=== PATIENT | male | born 1955 | race Caucasian/White ===

== ENCOUNTER 2016-10-07 15:56 | Inpatient (IN) | payer OTHER ==
[~2016-10-07] VITALS: Ht 165.1 cm; Wt 94.3 kg
[2016-10-07] VITALS (9 sets, daily range): BP systolic 86–104; BP diastolic 57–67; PULSE 71–85; TEMP 36.4; O2SAT 93–96; BMI 25.6
[2016-10-07] MEDS ORDERED: LIDOCAINE HCL 2% JELLY 30 ML TUBE EXT ONE (16:23)
[2016-10-07] MEDS ORDERED: SODIUM CHLORIDE 0.9% 1000ML 1,000 ML IV STA ×3 (16:25→22:16)
[2016-10-07] MEDS ORDERED: SODIUM CHLORIDE 0.9% 500ML 500 ML IV STA (16:25)
--- NOTE | 2016-10-07 16:36 | EMERGENCY ROOM VISIT NOTE ---
History Report prepared by Asaf: Dara Perales Under the Supervision of: Dr. Megan Cobos M.D. First contact with patient: 16:11 Chief Complaint: ILLNESS Stated Complaint: NOT EATING - WEIGHT LOSS - SENT BY DR RIVERA History of Present Illness The patient is a 60 year old male who presents to the Emergency Room to be evaluated for worsening altered mental status over the past several days. Per patient's , the patient has gastric cancer which is likely terminal. He has had radiation and is currently going through chemotherapy. Recently, the patient has not been himself and has not been eating.He has been drinking some fluids, but not much. He also has been unable to urinate throughout the day today. He has some redness and swelling to his groin. His states that he is confused compared to baseline. The patient did have a bowel movement today. Currently, he complains of feeling tired and generally sore. Today, his called Dr. Rivera's office, his oncologist, and was referred to the emergency room. Denies chest pain, shortness of breath, or other complaints. Source of History: patient, spouse/significant other Onset: a few days [employer] Position: other (Global) Quality: other (confusion) Timing: worsening Associated Symptoms: + fatigue, + urinary symptoms (retention), No SOB, No chest pain Note: Other symptoms: not eating, generalized soreness Review of Systems See HPI for pertinent positives & negatives. A total of 10 systems reviewed and were otherwise negative. 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 Social History Smoking Status: Never Smoker Marital Status: Housing Status: lives with family Occupation Status: retired Current/Historical Medications Scheduled Capecitabine (Xeloda), 500 MG PO UD Cyanocobalamin (Vitamin B-12), 1,000 MCG PO DAILY Diphenhy/Alum/Mag/Sucralfa (Magic Swizzle - Diphenhy/Alum/Mag/Sucralfa), 15 ML PO QID Divalproex Sodium (Depakote), 500 MG PO TID Fentanyl (Fentanyl), 50 MCG TD CQ72HR Furosemide (Lasix), 20 MG PO DAILY Levothyroxine Sodium (Levothyroxine Sodium), 150 MCG PO DAILY Simvastatin (Zocor), 20 MG PO QPM Scheduled PRN Hydrocodone/Acetaminophen 5MG/325MG ([place] 5MG/325MG), 1 TABLET PO Q6 PRN for Pain Lidocaine Hcl (Mouth-Throat) (Lidocaine Viscous), 10 ML MT Q3 PRN for Pain Ondansetron Hcl (Zofran), 8 MG PO Q8 PRN for Nausea Promethazine HCl (Phenergan), 20 ML PO Q4 PRN for Nausea Allergies Coded Allergies: Codeine (Verified Allergy, Unknown, rash, 10/07/16) Morphine (Verified Allergy, Unknown, rash, 10/07/16) Physical Exam Vital Signs Date Time Temp Pulse Resp B/P Pulse Ox O2 Delivery O2 Flow Rate FiO2 10/07/16 19:30 156 20 123/93 94 Room Air 10/07/16 18:26 36.7 10/07/16 18:00 145 17 96/64 93 Room Air 10/07/16 17:46 141 10/07/16 16:07 117 18 67/48 92 Room Air Physical Exam Vital signs reviewed. General: Chronically ill-appearing 60 year old male, in some discomfort, minimally responsive to verbal stimuli. HEENT: No scleral icterus, PERRLA, neck supple. Atraumatic. Cardiovascular: Tachycardic rate and irregular rhythm, no extra sounds. Pulmonary: Clear to auscultation bilaterally, normal work of breathing. Abdomen: Soft, nontender, nondistended, positive bowel sounds. : Circumcised erythematous and excoriated glans penis, incontinent of urine. Musculoskeletal: Atraumatic, no peripheral edema. Neurologic: Patient somnolent, minimally responsive to verbal stimuli. Skin: Warm, dry, no rash Medical Decision & Procedures Laboratory Results Test 10/07/16 16:40 10/07/16 16:41 10/07/16 18:00 Urine Color DK YELLOW Urine Appearance TURBID (CLEAR) Urine pH 5.0 (4.5-7.5) Urine Specific [place] 1.018 (1.000-1.030) Urine Protein TRACE (NEG) Urine Glucose (UA) NEG (NEG) Urine Ketones NEG (NEG) Urine Occult Blood 3+ (NEG) Urine Nitrite POS (NEG) Urine Bilirubin NEG (NEG) Urine Urobilinogen NEG (NEG) Urine Leukocyte Esterase TRACE (NEG) Urine WBC (Auto) 1-5 /hpf (0-5) Urine RBC (Auto) >30 /hpf (0-4) Urine Hyaline Casts (Auto) 10-30 /lpf (0-5) Urine Epithelial Cells (Auto) 5-10 /lpf (0-5) Urine Bacteria (Auto) NEG (NEG) Urine Pathogenic Casts 1-5 GRANULAR CASTS /lpf (0) Direct Bilirubin 0.5 mg/dl (0-0.2) Ammonia 40.0 umol/L (11-32) Lipase 118 U/L (73-393) Nucleated RBC Absolute Count (auto) 0.03 K/uL (0-0) Basophils % (Manual) 0.9 % (0-2) Nucleated Red Blood Cells % 1.2 % Basophils # (Manual) 0.02 K/uL (0-0.2) Hypochromasia PRESENT Anisocytosis PRESENT Date/Time Source Procedure Growth Status 10/07/16 16:40 Urine,Catheterized Urine Culture - Final NO GROWTH - LESS THAN 1,000 COLONIES/ML Complete Laboratory results per my review. Medications Administered Medications (Trade) Dose Ordered Sig/Ember Route Start Time Stop Time Status Last Admin Dose Admin Lidocaine HCl 30 ml 30 ml STK-MED ONCE EXT 10/07/16 16:23 10/07/16 16:24 DC 10/07/16 16:43 30 ML Sodium Chloride 500 ml @ 999 mls/hr Q31M STAT IV 10/07/16 16:25 10/07/16 16:55 DC 10/07/16 16:25 999 MLS/HR Sodium Chloride 1,000 ml @ 150 mls/hr Q6H40M STAT IV 10/07/16 16:25 10/07/16 21:26 DC 10/07/16 16:43 150 MLS/HR Sodium Chloride (Nss 1000ml) 1,000 ml @ 999 mls/hr Q1H1M STAT IV 10/07/16 17:32 10/07/16 18:32 DC 10/07/16 17:32 999 MLS/HR Metoprolol Tartrate (Lopressor Iv) 5 mg NOW STAT IV 10/07/16 19:42 10/07/16 20:04 DC 10/07/16 20:19 2.5 MG Ondansetron HCl (Zofran Inj) 4 mg Q6H PRN IV 10/07/16 19:45 11/06/16 19:44 10/09/16 00:52 4 MG ECG Indication: altered mental status Rate (beats per minute): 145 Rhythm: atrial fibrillation (with RVR) Findings: other (ST-T wave abnormality, likely inferior ischemia) ED Course 1618: The patient was evaluated in room B9. A complete history and physical examination was performed. 1625: Ordered NSS 1000 ml @ 150 mls/hr IV, NSS 500 ml @ 999 mls/hr IV. 1730: I reassessed the patient and updated his family on results so far. Ordered NSS 1000 ml @ 999 mls/hr IV. 1850: I discussed the case with Dr. Pamela Oconnell Hospitalist. The patient will be evaluated for further management. 1915: Upon reevaluation, the patient is resting comfortably. I discussed laboratory and radiographic results with the patient and his . They verbalized agreement of the treatment plan. Medical Decision Differential diagnosis: Etiologies such as metabolic, infection, hypo/hyperglycemia, electrolyte abnormalities, cardiac sources, intracerebral event, toxicologic, neurologic, as well as others were entertained. This patient was evaluated and appeared to be in no significant distress. IV access was obtained and laboratory work was drawn. The patient was placed on the potline monitor and found to be initially in a normal sinus rhythm. Laboratory work reveals a profound dehydration with elevated creatinine at 3.6 with a BUN of 102. This is not the patient's baseline. He was hydrated with normal saline solution and seemed to improve. A Alfonso catheter was placed. Patient's converted to an atrial fibrillation with RVR. His blood pressure remained hypotensive. He was hydrated and broke for a short period of time on his own. I did have a discussion with the patient's regarding end-of-life management and CODE STATUS. She states she would like him to be as comfortable as possible and seems realistic although was not willing to state he is a DO NOT RESUSCITATE at this time. The patient is periodically awake but falls asleep quickly. The hospitalist service was contacted for admission and further management. Consults Time Called: [phone] Consulting Physician: Dr. Pamela Oconnell Hospitalist Returned Call: [phone] I discussed the case with him. The patient will be evaluated for further management. Impression Primary Impression: Severe dehydration Additional Impressions: New onset a-fib Atrial fibrillation with RVR Scribe Attestation The scribe's documentation has been prepared under my direction and personally reviewed by me in its entirety. I confirm that the note above accurately reflects all work, treatment, procedures, and medical decision making performed by me. Departure Information Dispostion Being Evaluated By Hospitalist Referrals Fran Ware, FionaOOri (PCP) Patient Instructions My [facility] Problem Qualifiers
[2016-10-07 17:22] LABS: BUN/CREATININE RATIO 28.3 (10-20); CALCIUM 8.7 mg/dl (8.5-10.1); CREATININE 3.6 mg/dl (0.60-1.40); MAGNESIUM 2.8 mg/dl (1.8-2.4)
[2016-10-07] MEDS ORDERED: DRGTP50 TD (17:23)
[2016-10-07] MEDS ORDERED: FURO-85 PO (17:23)
[2016-10-07] MEDS ORDERED: LEVO150T9 PO (17:23)
[2016-10-07] MEDS ORDERED: CYAN10005 PO (17:23)
[2016-10-07] MEDS ORDERED: PROM2SUP PO (17:23)
[2016-10-07] MEDS ORDERED: HYDR-5688 PO (17:23)
[2016-10-07] MEDS ORDERED: DIVA500T59 PO (17:23)
[2016-10-07] MEDS ORDERED: XLD/500 PO (17:23)
[2016-10-07] MEDS ORDERED: MAGIC1 PO (17:23)
[2016-10-07] MEDS ORDERED: SIMV20TA2 PO (17:23)
[2016-10-07] MEDS ORDERED: LIDO2SOL19 MT (17:23)
[2016-10-07] MEDS ORDERED: ONDA8TAB6 PO (17:23)
[2016-10-07 17:33] LABS: URINE APPEARANCE TURBID (CLEAR); URINE COLOR DK YELLOW; URINE NITRITE POS (NEG); URINE SPECIFIC GRAVITY 1.018 (1.000-1.030); UROBILINOGEN NEG (NEG); ZZURINE CULT IF INDIC CATH NO
[2016-10-07 17:46] LABS: MANUAL MICROSCOPIC REQUIRED? NO; REVIEW REQ? YES
[2016-10-07 17:48] LABS: URINE BILIRUBIN NEG (NEG)
[2016-10-07 18:03] LABS: URINE PATH CASTS 1-5 GRANULAR CASTS /lpf (0)
[2016-10-07 19:29] LABS: HEMATOCRIT 35.2 % (42-52); MEAN CELL VOLUME 78.4 fL (80-100); MEAN CORPUSCULAR HEMOGLOBIN 25.8 pg (25-34); PLATELET COUNT 39 K/uL (130-400); RED BLOOD COUNT 4.49 M/uL (4.7-6.1)
[2016-10-07 19:30] LABS: ANISOCYTOSIS PRESENT; BASO ABS # 0.02 K/uL (0-0.2); BASOPHIL % 0.9 % (0-2); COMPLETE YES; ECHINOCYTES 2+; HYPOCHROMIA PRESENT; LYMPH ABS # 0.48 K/uL (1.2-3.4); PLT ESTIMATE SIGNIFIC DECREASED; TOXIC GRANULATION 3+
[2016-10-07] MEDS ORDERED: METOPROLOL TARTRATE 1 MG/ML VIAL IV STA (19:42)
[2016-10-07] MEDS ORDERED: LEVALBUTEROL 0.63MG/3 ML NEB INH PRN (19:45)
[2016-10-07] MEDS ORDERED: ACETAMINOPHEN 325 MG TAB PO PRN (19:45)
[2016-10-07] MEDS ORDERED: DILTIAZEM BOLUS / DRIP IV STA (20:04)
[2016-10-07] MEDS ORDERED: FENTANYL 50 MCG/HR TDSY TD SCH (20:15)
--- NOTE | 2016-10-07 20:42 | DIAGNOSTIC IMAGING REPORT ---
CHEST ONE VIEW PORTABLE CLINICAL HISTORY: Atrial fibrillation ANOREXIA COMPARISON STUDY: No previous studies for comparison. FINDINGS: The heart is the upper limits of normal in size. Mild prominence the right paratracheal soft tissues likely relates to the AP technique. There is no lobar consolidation. There are no pleural fusions. There is minor basilar atelectasis[ IMPRESSION: Minor basilar atelectasis. No evidence of failure. No evidence of focal pulmonary consolidation Electronically signed by: Moose Montejo M.D. 10/07/2016 8:40 PM Dictated Date/Time: 10/07/2016 8:39 PM
--- NOTE | 2016-10-07 21:22 | DIAGNOSTIC IMAGING REPORT ---
EXAMINATION: RENAL ULTRASOUND CLINICAL HISTORY: Acute renal insufficiency COMPARISON STUDY: None FINDINGS: The right kidney measures 11.5 cm. The left kidney measures 12.2 cm. There is mild fullness of the right renal pelvis. There is no significant left-sided hydronephrosis. There is a probable 3.8 cm hypoechoic left renal mass.. The bladder was nearly empty at time of scanning. There is indwelling Alfonso catheter. There are innumerable hepatic masses, suspicious for metastatic disease. IMPRESSION : 1. Probable 3.8 cm hypoechoic left renal mass 2. Multiple hepatic masses suspicious for metastatic disease 3. Mild fullness of the right renal pelvis, but no evidence of significant hydronephrosis Electronically signed by: Moose Montejo M.D. 10/07/2016 9:20 PM Dictated Date/Time: 10/07/2016 9:17 PM
[2016-10-07] MEDS ORDERED: SODIUM CHLORIDE 0.9% 1000ML 1,000 ML IV SCH (21:45)
[2016-10-07] MEDS ORDERED: DILTIAZEM HCL INJ 125 MG in DEXTROSE 5% 100ML IV PRN (21:45)
[2016-10-07] MEDS ORDERED: SIMVASTATIN 20 MG TAB PO SCH (22:00)
[2016-10-07] MEDS ORDERED: PIPERACILL/TAZOBAC IV 4.5 GM in DEXTROSE 5% 100ML 100 ML IV ONE (22:17)
[2016-10-07] MEDS ORDERED: VANCOMYCIN INJ 1,700 MG in SODIUM CHLORIDE 0.9% 500ML 500 ML IV STA (22:17)
[2016-10-07] MEDS: DIVALPROEX SODIUM 500 MG DELAY RELEASE TAB PO SCH (22:18)
[2016-10-07] MEDS ORDERED: VANCOMYCIN CONSULT ACTIVE PRN (22:30)
[2016-10-07] MEDS ORDERED: PIPERACILL/TAZOBAC CONSULT ACTIVE PRN (22:30)
--- NOTE | 2016-10-07 23:02 | Critical Care Consultation ---
Critical Care Consultation Date of Consultation: Oct 07, 2016. Attending Physician: Philippe Sahni MD Reason for Consultation: Hemodynamic instability atrial fibrillation with rapid ventricular response History of Present Illness Patient is a 60-year-old male with a history of metastatic carcinoma who is actively undergoing chemotherapy and radiation. The last 24 hours the reports that the patient has had palpitations and decreased oral intake. Denies fevers chills chest pain shortness of breath. notes that the patient normally minimizes his complaints. Upon her insistent today for his generalized weakness he was brought to the [facility] emergency department. He was discovered to be profoundly dehydrated with an acute kidney injury and in atrial fibrillation with rapid ventricular response. After aggressive fluid resuscitation which marginally improved his hemodynamics the patient went for a renal ultrasound for evaluation of the acute kidney injury. As noted that when the patient was transferring between 2 beds he spontaneously converted out of atrial fibrillation and into a normal sinus rhythm. Since that time his blood pressure has improved with improved cardiovascular function. Social History Smoking Status: Never Smoker Marital Status: Housing Status: lives with family Allergies Coded Allergies: Codeine (Verified Allergy, Unknown, rash, 10/07/16) Morphine (Verified Allergy, Unknown, rash, 10/07/16) Home Medications Scheduled Capecitabine (Xeloda), 500 MG PO UD Cyanocobalamin (Vitamin B-12), 1,000 MCG PO DAILY Diphenhy/Alum/Mag/Sucralfa (Magic Swizzle - Diphenhy/Alum/Mag/Sucralfa), 15 ML PO QID Divalproex Sodium (Depakote), 500 MG PO TID Fentanyl (Fentanyl), 50 MCG TD CQ72HR Furosemide (Lasix), 20 MG PO DAILY Levothyroxine Sodium (Levothyroxine Sodium), 150 MCG PO DAILY Simvastatin (Zocor), 20 MG PO QPM Scheduled PRN Hydrocodone/Acetaminophen 5MG/325MG ([place] 5MG/325MG), 1 TABLET PO Q6 PRN for Pain Lidocaine Hcl (Mouth-Throat) (Lidocaine Viscous), 10 ML MT Q3 PRN for Pain Ondansetron Hcl (Zofran), 8 MG PO Q8 PRN for Nausea Promethazine HCl (Phenergan), 20 ML PO Q4 PRN for Nausea Current Inpatient Medications Current Inpatient Medications Medications (Trade) Dose Ordered Sig/Ember Route Start Time Stop Time Status Last Admin Dose Admin Sodium Chloride (Nss 1000ml) 1,000 ml @ 125 mls/hr Q8H IV 10/07/16 21:45 11/06/16 21:44 10/07/16 21:51 125 MLS/HR Acetaminophen (Tylenol Tab) 650 mg Q4H PRN PO 10/07/16 19:45 11/06/16 19:44 Levalbuterol (Xopenex 0.63 Mg/ 3 Ml Neb) 0.63 mg QID PRN INH 10/07/16 19:45 11/06/16 19:44 Ondansetron HCl (Zofran Inj) 4 mg Q6H PRN IV 10/07/16 19:45 11/06/16 19:44 Cyanocobalamin (Vitamin B-12 Tab) 1,000 mcg DAILY PO 10/08/16 09:00 11/07/16 08:59 Divalproex Sodium (Depakote Delay Rel Tab) 500 mg TID PO 10/07/16 22:00 11/06/16 21:59 Acetaminophen/ Hydrocodone Bitart ([place] 5/325 Tab) 1 tab Q6 PRN PO 10/07/16 20:15 10/21/16 20:14 Levothyroxine Sodium (Synthroid Tab) 150 mcg DAILYBB PO 10/08/16 06:00 11/07/16 05:59 Simvastatin (Zocor Tab) 20 mg QPM PO 10/07/16 22:00 11/06/16 21:59 Capecitabine 1500 mg 1,500 mg BID@0000,1200 PO 10/08/16 00:00 10/11/16 00:00 Sodium Chloride 1,000 ml @ 999 mls/hr Q1H1M STAT IV 10/07/16 22:16 10/07/16 23:16 Vancomycin HCl 1700 mg/Sodium Chloride 534 ml @ 200 mls/hr NOW STAT IV 10/07/16 22:17 10/08/16 00:57 Piperacillin Sod/ Tazobactam Sod/ Dextrose (Zosyn Iv/D5 100ml) 120 ml @ 200 mls/hr ONE ONCE IV 10/07/16 22:17 10/07/16 22:52 Vancomycin HCl (Consult) 1 ea UD PRN N/A 10/07/16 22:30 11/06/16 22:29 Piperacillin Sod/ Tazobactam Sod (Consult) 1 ea UD PRN N/A 10/07/16 22:30 11/06/16 22:29 Review of Systems Patient denies chest pain, shortness of breath, nausea, vomiting. There is chronic abdominal pain secondary to metastases. A 10 point review of systems is reviewed and is otherwise negative. Physical Exam Date Time Temp Pulse Resp B/P Pulse Ox O2 Delivery O2 Flow Rate FiO2 10/07/16 20:36 117 20 73/57 96 Room Air 10/07/16 20:19 146 102/59 10/07/16 19:30 156 20 123/93 94 Room Air 10/07/16 18:26 36.7 10/07/16 18:00 145 17 96/64 93 Room Air 10/07/16 17:46 141 10/07/16 16:07 117 18 67/48 92 Room Air General Appearance: mild distress Head: atraumatic Neck: limited range of motion, other (fullness) Respiratory: rhonchi (scattered) Cardiovasular: irregular rate, abnormal rhythm Abdomen: RUQ TTP, LUQ TTP, RLQ TTP, LLQ TTP, suprapubic TTP Upper Extremities: no edema Lower Extremities: no deformity Neuro: alert, oriented x 3 Laboratory Results Last 24 Hours Test 10/07/16 16:40 10/07/16 16:41 10/07/16 18:00 10/07/16 21:20 Urine Color DK YELLOW Urine Appearance TURBID Urine pH 5.0 Urine Specific [place] 1.018 Urine Protein TRACE Urine Glucose (UA) NEG Urine Ketones NEG Urine Occult Blood 3+ Urine Nitrite POS Urine Bilirubin NEG Urine Urobilinogen NEG Urine Leukocyte Esterase TRACE Urine WBC (Auto) 1-5 /hpf Urine RBC (Auto) >30 /hpf Urine Hyaline Casts (Auto) 10-30 /lpf Urine Epithelial Cells (Auto) 5-10 /lpf Urine Bacteria (Auto) NEG Urine Pathogenic Casts 1-5 GRANULAR CASTS /lpf Sodium Level 138 mmol/L Potassium Level 5.0 mmol/L Chloride Level 105 mmol/L Carbon Dioxide Level 13 mmol/L Anion Gap 20.0 mmol/L Blood Urea Nitrogen 102 mg/dl Creatinine 3.60 mg/dl Est Creatinine Clear Calc Drug Dose 18.5 ml/min Estimated GFR () 19.8 Estimated GFR (Non- 17.1 BUN/Creatinine Ratio 28.3 Random Glucose 87 mg/dl Calcium Level 8.7 mg/dl Magnesium Level 2.8 mg/dl Total Bilirubin 0.7 mg/dl Direct Bilirubin 0.5 mg/dl Aspartate Amino Transf (AST/SGOT) 86 U/L Alanine Aminotransferase (ALT/SGPT) 62 U/L Alkaline Phosphatase 194 U/L Ammonia 40.0 umol/L Total Protein 6.0 gm/dl Albumin 1.5 gm/dl Lipase 118 U/L White Blood Count 2.10 K/uL Red Blood Count 4.49 M/uL Hemoglobin 11.6 g/dL Hematocrit 35.2 % Mean Corpuscular Volume 78.4 fL Mean Corpuscular Hemoglobin 25.8 pg Mean Corpuscular Hemoglobin Concent 33.0 g/dl Platelet Count 39 K/uL RDW Standard Deviation 47.0 fL RDW Coefficient of Variation 17.0 % Nucleated RBC Absolute Count (auto) 0.03 K/uL Neutrophils % (Manual) 69.0 % Lymphocytes % (Manual) 23.0 % Monocytes % (Manual) 7.1 % Basophils % (Manual) 0.9 % Nucleated Red Blood Cells % 1.2 % Neutrophils # (Manual) 1.45 K/uL Total Absolute Neutrophils 1.45 K/uL Lymphocytes # (Manual) 0.48 K/uL Total Absolute Lymphocytes 0.48 K/uL Monocytes # (Manual) 0.15 K/uL Basophils # (Manual) 0.02 K/uL Toxic Granulation 3+ Platelet Estimate SIGNIFIC DECREASED Hypochromasia PRESENT Anisocytosis PRESENT Echinocytes 2+ Procalcitonin 156.37 ng/mL Test 10/07/16 21:28 Lactic Acid Level 4.4 mmol/L Diagnostic Results [~ rep ct add3]] EXAMINATION: RENAL ULTRASOUND CLINICAL HISTORY: Acute renal insufficiency COMPARISON STUDY: None FINDINGS: The right kidney measures 11.5 cm. The left kidney measures 12.2 cm. There is mild fullness of the right renal pelvis. There is no significant left-sided hydronephrosis. There is a probable 3.8 cm hypoechoic left renal mass.. The bladder was nearly empty at time of scanning. There is indwelling Alfonso catheter. There are innumerable hepatic masses, suspicious for metastatic disease. IMPRESSION : 1. Probable 3.8 cm hypoechoic left renal mass 2. Multiple hepatic masses suspicious for metastatic disease 3. Mild fullness of the right renal pelvis, but no evidence of significant hydronephrosis Electronically signed by: Moose Montejo M.D. 10/07/2016 9:20 PM Dictated Date/Time: 10/07/2016 9:17 PM CHEST ONE VIEW PORTABLE CLINICAL HISTORY: Atrial fibrillation ANOREXIA COMPARISON STUDY: No previous studies for comparison. FINDINGS: The heart is the upper limits of normal in size. Mild prominence the right paratracheal soft tissues likely relates to the AP technique. There is no lobar consolidation. There are no pleural fusions. There is minor basilar atelectasis[ IMPRESSION: Minor basilar atelectasis. No evidence of failure. No evidence of focal pulmonary consolidation Electronically signed by: Moose Montejo M.D. 10/07/2016 8:40 PM Assessment & Plan (1) Atrial fibrillation with RVR (2) Pancytopenia due to chemotherapy (3) Lactic acid acidosis (4) Hyperammonemia (5) SHERI (acute kidney injury) (6) Metabolic acidosis, increased anion gap (7) Uremia (8) Generalized weakness (9) New onset a-fib (10) Severe dehydration (11) Gastric cancer (12) Seizure disorder Neuro: History of seizure disorder, reports no seizures the last 10 years, no report of brain metastases at this time Continue Depakote Elevated ammonia level, likely secondary to Depakote usage and possible hepatic insufficiency given her cancer history, likely metastases, lesions seen on ultrasound Discussed with pharmacy we do not have levocarnitine available for hyperammonemia Cardiovascular: New-onset A. fib, unknown length of duration. Spontaneous conversion to normal sinus rhythm, we'll obtain EKG Echo in the morning Hypotension: Resolved with adventist of normal sinus rhythm Respiratory: History of Jac tobacco use GI: History of carcinomatosis, elevated AST Patient has diet Renal: Uremia, metabolic acidosis with elevated gap likely secondary to uremia and lactic acidosis, lactic acidosis, SHERI Aggressive fluid resuscitation, patient received 3 L normal saline, and S running at 125 convert to lactated Ringer's at 125 an hour. Repeat lactate Check Fena, however likely prerenal no evidence of obstruction on an ultrasound Endocrine check random cortisol Hematology: Pancytopenia likely secondary to chemotherapeutic effect and malignancy burden. Broad spectrum antibiotics in setting of possible sepsis Platelet count 39, will not chemically prophylaxis at this time. Patient high risk for venous thromboembolism given active malignancy, if found with venous thromboembolism would highly consider [place] filter No active evidence for recurrent PE at this time, will place SCDs Infectious disease:: Procalcitonin extremely elevated, patient meets criteria for severe sepsis, other etiologies include hyperperfusion secondary to atrial fibrillation with rapid ventricular response Check influenza On Zosyn and vancomycin Likely source at this time is urinary, nitrate positive Patient desires to be full code, surrogate medical decision maker would be patient's . Discussed the risks and benefits of blood transfusion, patient accepts Discussed risks and benefits of endotracheal intubation, patient accepts, of note patient has fractured jaw secondary to malignancy Discussed risks and benefits of central venous axis, patient accepts, of note patient has had neck malignancy and recent neck radiation Discussed risks and benefits of arterial line, patient accepts risks Discussed risks and benefits of bronchoscopy, patient accepts Discussed risks and benefits of PICC line, patient accepts I have personally spent 90 minutes of critical care time in the direct management of this patient. This is a life/limb threatening event. This includes time spent evaluating patient, direct bedside care, chart review, placing orders, interpretation of diagnostic studies, discussion with consultants, patient, and family members, as well as other required patient management activities. This time is exclusive of all separately billable procedures, and teaching time and separate from and in addition to any other critical care service time.
[2016-10-08] VITALS (30 sets, daily range): BP systolic 55–127; BP diastolic 45–88; PULSE 68–87; TEMP 36.1–36.4; O2SAT 93–99
--- NOTE | 2016-10-08 00:01 | History and Physical ---
History & Physical Date & Time of Service: Oct 07, 2016 at 23:02 Chief Complaint: Generalized Weakness Primary Care Physician: Fran Ware D.O. History of Present Illness Source: patient, family Patient is a 60 yr old male with PMH of Seizure disorder, Metastatic gastric cancer, Dyslipidemia, Hypothyroidism, Former tobacco use disorder presents with history of being very lethargic, decreased appetite, decreased urine output and has not been himself since last few days. Patient has radiation therapy and is currently undergoing chemotherapy. Patient is a very poor historian and most of the history is obtained from patient's family. Per family patient lost about 100 pounds in last 2 months. Family noticed that his developed some groin redness and swelling and especially since last 2 days his appetite has decreased dramatically and had no urine output since one day. Patient denies any history of cough, SOB, chest pain, fever, nausea, vomiting or noticed any blood in urine/stools. States patient has had intermittent chills last week. Patient was found to have new onset afib, hypotensive with SBP in 60s and SHERI. Past Medical/Surgical History Medical Problems: (1) Gastric cancer Status: Chronic (2) Pancytopenia due to chemotherapy Status: Chronic (3) Seizure disorder Status: Chronic Surgical Problems: (1) H/O knee surgery Status: Chronic Family History Mother: Heart disease, Hypothyroidism Social History Smoking Status: Former Smoker (Chews [employer]) Alcohol Use: socially Drug Use: none Marital Status: Allergies Coded Allergies: Codeine (Verified Allergy, Unknown, rash, 10/07/16) Morphine (Verified Allergy, Unknown, rash, 10/07/16) Home Medications Scheduled Capecitabine (Xeloda), 500 MG PO UD Cyanocobalamin (Vitamin B-12), 1,000 MCG PO DAILY Diphenhy/Alum/Mag/Sucralfa (Magic Swizzle - Diphenhy/Alum/Mag/Sucralfa), 15 ML PO QID Divalproex Sodium (Depakote), 500 MG PO TID Fentanyl (Fentanyl), 50 MCG TD [id number] Furosemide (Lasix), 20 MG PO DAILY Levothyroxine Sodium (Levothyroxine Sodium), 150 MCG PO DAILY Simvastatin (Zocor), 20 MG PO QPM Scheduled PRN Hydrocodone/Acetaminophen 5MG/325MG ([place] 5MG/325MG), 1 TABLET PO Q6 PRN for Pain Lidocaine Hcl (Mouth-Throat) (Lidocaine Viscous), 10 ML MT Q3 PRN for Pain Ondansetron Hcl (Zofran), 8 MG PO Q8 PRN for Nausea Promethazine HCl (Phenergan), 20 ML PO Q4 PRN for Nausea Review of Systems See HPI for pertinent positives & negatives. A total of 10 systems reviewed and were otherwise negative. Physical Exam Vital Signs Date Time Temp Pulse Resp B/P Pulse Ox O2 Delivery O2 Flow Rate FiO2 10/07/16 20:36 117 20 73/57 96 Room Air 10/07/16 20:19 146 102/59 10/07/16 19:30 156 20 123/93 94 Room Air 10/07/16 18:26 36.7 10/07/16 18:00 145 17 96/64 93 Room Air 10/07/16 17:46 141 10/07/16 16:07 117 18 67/48 92 Room Air General Appearance: + pertinent finding (Chronically ill appearing, Mild distress, Lethargic) Head: normocephalic, atraumatic Eyes: normal inspection, PERRL, EOMI, sclerae normal ENT: normal ENT inspection, hearing grossly normal Neck: supple, trachea midline Respiratory/Chest: chest non-tender, lungs clear, normal breath sounds, no accessory muscle use Cardiovascular: no edema, no murmur, + tachycardia, + irregularly irregular Abdomen/GI: normal bowel sounds, soft, + pertinent finding (mild tenderness diffusely) Extremities/Musculoskelatal: normal inspection, no calf tenderness Neurologic/Psych: alert, oriented x 3, + pertinent finding (Very Letharic, Not very verbal) Diagnostics Laboratory Results Results Past 24 Hours Test 10/07/16 16:40 10/07/16 16:41 10/07/16 18:00 10/07/16 21:20 Range/Units Urine Color DK YELLOW Urine Appearance TURBID CLEAR Urine pH 5.0 4.5-7.5 Urine Specific [place] 1.018 1.000-1.030 Urine Protein TRACE NEG Urine Glucose (UA) NEG NEG Urine Ketones NEG NEG Urine Occult Blood 3+ NEG Urine Nitrite POS NEG Urine Bilirubin NEG NEG Urine Urobilinogen NEG NEG Urine Leukocyte Esterase TRACE NEG Urine WBC (Auto) 1-5 0-5 /hpf Urine RBC (Auto) >30 0-4 /hpf Urine Hyaline Casts (Auto) 10-30 0-5 /lpf Urine Epithelial Cells (Auto) 5-10 0-5 /lpf Urine Bacteria (Auto) NEG NEG Urine Pathogenic Casts 1-5 GRANULAR CASTS 0 /lpf Sodium Level 138 136-145 mmol/L Potassium Level 5.0 3.5-5.1 mmol/L Chloride Level 105 98-107 mmol/L Carbon Dioxide Level 13 21-32 mmol/L Anion Gap 20.0 3-11 mmol/L Blood Urea Nitrogen 102 7-18 mg/dl Creatinine 3.60 0.60-1.40 mg/dl Est Creatinine Clear Calc Drug Dose 18.5 ml/min Estimated GFR () 19.8 Estimated GFR (Non- 17.1 BUN/Creatinine Ratio 28.3 10-20 Random Glucose 87 70-99 mg/dl Calcium Level 8.7 8.5-10.1 mg/dl Magnesium Level 2.8 1.8-2.4 mg/dl Total Bilirubin 0.7 0.2-1 mg/dl Direct Bilirubin 0.5 0-0.2 mg/dl Aspartate Amino Transf (AST/SGOT) 86 15-37 U/L Alanine Aminotransferase (ALT/SGPT) 62 12-78 U/L Alkaline Phosphatase 194 45-117 U/L Ammonia 40.0 11-32 umol/L Total Protein 6.0 6.4-8.2 gm/dl Albumin 1.5 3.4-5.0 gm/dl Lipase 118 73-393 U/L White Blood Count 2.10 4.8-10.8 K/uL Red Blood Count 4.49 4.7-6.1 M/uL Hemoglobin 11.6 14.0-18.0 g/dL Hematocrit 35.2 42-52 % Mean Corpuscular Volume 78.4 80-100 fL Mean Corpuscular Hemoglobin 25.8 25-34 pg Mean Corpuscular Hemoglobin Concent 33.0 32-36 g/dl Platelet Count 39 130-400 K/uL RDW Standard Deviation 47.0 36.4-46.3 fL RDW Coefficient of Variation 17.0 11.5-14.5 % Nucleated RBC Absolute Count (auto) 0.03 0-0 K/uL Neutrophils % (Manual) 69.0 % Lymphocytes % (Manual) 23.0 % Monocytes % (Manual) 7.1 % Basophils % (Manual) 0.9 0-2 % Nucleated Red Blood Cells % 1.2 % Neutrophils # (Manual) 1.45 1.4-6.5 K/uL Total Absolute Neutrophils 1.45 1.4-6.5 K/uL Lymphocytes # (Manual) 0.48 1.2-3.4 K/uL Total Absolute Lymphocytes 0.48 1.2-3.4 K/uL Monocytes # (Manual) 0.15 0.11-0.59 K/uL Basophils # (Manual) 0.02 0-0.2 K/uL Toxic Granulation 3+ Platelet Estimate SIGNIFIC DECREASED Hypochromasia PRESENT Anisocytosis PRESENT Echinocytes 2+ Procalcitonin 156.37 0-0.5 ng/mL Test 10/07/16 21:28 Range/Units Lactic Acid Level 4.4 0.4-2.0 mmol/L Microbiology Results 10/07/16 Blood Culture, Received Pending 10/07/16 Blood Culture, Received Pending 10/07/16 MRSA DNA Surveillance Screen, Received Pending 10/07/16 Urine Culture, Received Pending Diagnostic Radiology CXR: Minor basilar atelectasis. No evidence of failure. No evidence of focal pulmonary consolidation Renal USD: 1. Probable 3.8 cm hypoechoic left renal mass 2. Multiple hepatic masses suspicious for metastatic disease 3. Mild fullness of the right renal pelvis, but no evidence of significant hydronephrosis EKG EKG: Afib with RVR, Rate in 150s Impression Assessment and Plan Atrial fibrillation with RVR: New onset per family Currently in Sinus S/P IV Metoprolol Will hold of anticoagulation for now given hematuria in urine Currently rate controlled in 70s and in sinus Monitor in Telemetry Will consult cardiology Severe Dehydration/Hypotension and Lethargy: R/O sepsis, UTI Secondary to decreased PO intake and comorbidities Lactic acid:4.4 likely secondary to malignancy Start IV fluids, broad spectrum antibiotics Elkins cultures [employer] Programmer consulted SHERI: Likely prerenal secondary to decreased oral intake IV fluids Monitor renal function Get renal ultrasound Consider Nephrology consult if no improvement Avoid nephrotoxic agents Metastatic gastric cancer: S/P radiation therapy Continue chemotherapy Poor prognosis Pancytopenia: Likely secondary to chemotherapy Monitor CBC Seizure disorder: Stable Continue home meds Hypothyroidism: Stable Continue levothyroxine DVT Px: SCDs- given hematuria, Thrombocytopenia Code Status: Full code Advanced Directives Existing Advance Directive: No Existing Living Will: No Existing Power of Dry Kiln Loader: No VTE Prophylaxis VTE Risk Assessment Done? Y/N: Yes Risk Level: Moderate
[2016-10-08] MEDS: LACTATED RINGER'S 1000ML 1,000 ML IV SCH ×3 (00:30→15:45)
[2016-10-08] MEDS: CAPECITABINE 500 MG TAB PO SCH ×2 (00:31→12:18)
[2016-10-08 04:30] LABS: ISTAT ALLEN TEST Pass; ISTAT ARTERIAL BLOOD GAS HCO3 16 meq/L (19-24); ISTAT ARTERIAL BLOOD GAS PCO2 27 mmHg (35-46); ISTAT ARTERIAL BLOOD GAS PO2 55 mmHg (80-95); ISTAT CARBON DIOXIDE 17 mEq/l (24-31); ISTAT DELIVERY SYSTEM Room Air; ISTAT SITE L Radial
[2016-10-08] MEDS ORDERED: LEVOTHYROXINE 150 MCG TAB PO SCH (06:00)
[2016-10-08 06:45] LABS: HEMATOCRIT 33.1 % (42-52); MEAN CELL VOLUME 77.5 fL (80-100); MEAN CORPUSCULAR HEMOGLOBIN 25.8 pg (25-34); MEAN CORPUSCULAR HGB CONC 33.2 g/dl (32-36); PLATELET COUNT 37 K/uL (130-400); RED BLOOD COUNT 4.27 M/uL (4.7-6.1); WHITE BLOOD COUNT 1.24 K/uL (4.8-10.8)
[2016-10-08 06:46] LABS: ECHINOCYTES 1+; PLT ESTIMATE SIGNIFIC DECREASED; SPHEROCYTE 1+
[2016-10-08 06:49] LABS: COMPLETE YES; LYMPH ABS # 0.34 K/uL (1.2-3.4); LYMPHOCYTE % 27.6 %; META ABS # 0.02 K/uL (0-0); METAMYELOCYTE % 1.7 %; NEUTROPHILS % 63.8 %
[2016-10-08 07:10] LABS: ALB/GLOB RATIO 0.3 (0.9-2); ALKALINE PHOSPHATASE 155 U/L (45-117); ALT/SGPT 55 U/L (12-78); AST/SGOT 73 U/L (15-37); BLOOD UREA NITROGEN 93 mg/dl (7-18); BUN/CREATININE RATIO 42.2 (10-20); CALCIUM 7.8 mg/dl (8.5-10.1); CARBON DIOXIDE 17 mmol/L (21-32); CHLORIDE 111 mmol/L (98-107); GLUCOSE 91 mg/dl (70-99); MAGNESIUM 2.7 mg/dl (1.8-2.4); PHOSPHORUS 5.1 mg/dl (2.5-4.9); POTASSIUM 4.1 mmol/L (3.5-5.1); SODIUM 143 mmol/L (136-145)
[2016-10-08] MEDS ORDERED: PERFLUTREN LIPID MICROSPHERE (DEFINITY) IV ONE (07:51)
--- NOTE | 2016-10-08 08:46 | Pharmacy Progress Note ---
Pharmacy Antibiotic Consult Date of Service: Oct 08, 2016. Pharmacy Dosing Scope Pharmacy is consulted to initiate Vanco/zosyn IV dosing therapy, order appropriate labs and adjust drug dose/frequency. Subjective The patient is a 60 year old male admitted on Oct 07, 2016 at 20:04. Objective Height (Feet): 5 Height (Inches): 5.00 Weight (Kilograms): 72.500 Lab Results (24hrs): Item Value Date Time Creatinine 2.20 mg/dl H 10/08/16 0604 Est Creatinine Clear Calc Drug Dose 30.3 ml/min 10/08/16 0604 Creatinine 3.60 mg/dl H 10/07/16 1641 Est Creatinine Clear Calc Drug Dose 18.5 ml/min 10/07/16 1641 Laboratory Tests Test 10/07/16 16:41 10/07/16 18:00 10/08/16 06:04 BUN/Creatinine Ratio 28.3 42.2 Blood Urea Nitrogen 102 mg/dl 93 mg/dl Creatinine 3.60 mg/dl 2.20 mg/dl White Blood Count 2.10 K/uL 1.24 K/uL Red Blood Count 4.49 M/uL 4.27 M/uL Hemoglobin 11.6 g/dL 11.0 g/dL Hematocrit 35.2 % 33.1 % Mean Corpuscular Volume 78.4 fL 77.5 fL Mean Corpuscular Hemoglobin 25.8 pg 25.8 pg Mean Corpuscular Hemoglobin Concent 33.0 g/dl 33.2 g/dl Platelet Count 39 K/uL 37 K/uL Micro Results: Item Value Date Time Blood Culture Received 10/07/16 2140 Blood Pending MRSA DNA Surveillance Screen - Final Complete 10/07/16 2125 Nasal Specimen Negative for MRSA by DNA Probe Blood Culture Received 10/07/16 2120 Blood Pending Urine Culture Received 10/07/16 1640 Urine,Catheterized Pending Assessment & Plan Pt is a 60yo M being empirically treated w/ Vanco/Zosyn. (?UTI, ?SEPSIS) Pt experiencing SHERI, SCr improving from 3.6 to 2.2 and eCrCl from 19cc/min to 30cc/ min overnight. Pt received a one time Vanco 1700mg (23mg/kg) at 2217 last night. I have ordered a random lvl to be drawn LAKISHA to determine what next steps should be. Pt population p'kinetics: t1/2=24hrs and ke=0.0293. Mr. Ro' lactic acid is elevated. MRSA nasal was negative, UC and BC are all pending. Urine nitrites are positive, likely a gram(-) pathogen. Will de- escalate when all c/s's result. Mr Ro received a one time Zosyn 4.5g last night at 2300, he needs restarted on a 1 time 30 min 4.5g infsn and 4.5g q8, appropriate for eCrCl>20cc/min. I have chosen the higher dosed Zosyn due to Mr Ro being immunosuppressed 2/2 to XRT and ChTx. Pharmacy will continue to follow and will adjust dose/frequency as necessary. Thank you
[2016-10-08] MEDS ORDERED: PIPERACILL/TAZOBAC IV 4.5 GM in DEXTROSE 5% 100ML IV ONE (09:00)
--- NOTE | 2016-10-08 09:11 | Progress Note ---
Internal Med Progress Note Date of Service: Oct 08, 2016. Provider Documentation: SUBJECTIVE: The patient was seen and examined in presence of the Remains generally weak and lethargic No improvement OBJECTIVE: Vital Signs-as noted below Exam: General-Moderate distress at rest SOB Eyes-Normal ENT-normal Neck-Supple,right sided facial swelling Lungs-Decreased breath sound bilaterally Heart-Regular Abdomen-Mildly [id number],soft and tender Extremities-Trace edema bilaterally Neuro-AA Generally weak and lethargic Lab data as noted below. ASSESSMENT & PLAN: Severe Dehydration With Hypotension and Lethargy: R/O sepsis, UTI On IV Vanco and Zosyn Panculture Appreciate Insolvency Consultant input Metastatic gastric cancer: S/P radiation therapy Continue chemotherapy for now Poor prognosis-discussed with the Atrial fibrillation with RVR: Reverted to SR and remaisn in SR No anticoagulation ,hematuria and Low platelet Monitor in Telemetry Acute Renal Failure Likely prerenal secondary to decreased oral intake US kidneys -renal cyst otherwise unremarkable IV fluid and monitor May need Nephrology Pancytopenia: Likely secondary to chemotherapy Neutropenia and Thrombocytopenia Neutropenic Precaution Seizure disorder: Stable Continue home meds Hypothyroidism: Stable Continue levothyroxine DVT Px: SCDs- given hematuria, Thrombocytopenia Potential for clot formation US legs if positive may consider Filter Code Status: Full code Discussed with Vital Signs: Date Time Temp Pulse Resp B/P Pulse Ox O2 Delivery O2 Flow Rate FiO2 10/08/16 06:28 81 23 114/74 96 10/08/16 06:13 82 24 102/73 96 10/08/16 05:58 80 18 116/79 96 10/08/16 05:43 77 24 106/69 96 10/08/16 05:29 80 26 114/76 96 10/08/16 05:14 78 18 92/74 97 10/08/16 04:58 76 23 101/66 97 10/08/16 04:43 74 24 97/64 96 10/08/16 04:28 76 23 99/62 96 10/08/16 04:27 93 Room Air 10/08/16 04:14 82 25 99/67 94 10/08/16 03:29 80 24 104/67 94 10/08/16 03:13 73 23 98/69 94 10/08/16 02:58 75 25 95/63 94 10/08/16 02:43 72 24 102/68 93 10/08/16 02:28 71 22 98/59 94 10/08/16 02:13 71 23 97/68 94 10/08/16 01:58 74 23 98/63 94 10/08/16 01:43 68 23 99/60 95 10/08/16 01:29 77 24 98/67 94 10/08/16 01:14 77 25 55/45 95 10/08/16 00:28 73 22 105/65 97 10/08/16 00:13 74 22 97/59 94 10/08/16 00:05 93 Room Air 10/07/16 23:58 71 22 95/57 93 10/07/16 23:43 73 24 96/63 94 10/07/16 23:28 77 21 104/63 94 10/07/16 23:13 74 20 96/60 95 10/07/16 22:58 76 22 88/62 95 10/07/16 22:43 78 21 102/66 95 10/07/16 22:28 36.4 85 18 99/58 95 Room Air 10/07/16 22:28 78 24 97/67 96 10/07/16 22:13 80 21 86/63 94 10/07/16 21:05 36.4 85 18 99/58 95 Room Air 10/07/16 20:36 117 20 73/57 96 Room Air 10/07/16 20:19 146 102/59 10/07/16 19:30 156 20 123/93 94 Room Air 10/07/16 18:26 36.7 10/07/16 18:00 145 17 96/64 93 Room Air 10/07/16 17:46 141 10/07/16 16:07 117 18 67/48 92 Room Air Lab Results: Results Past 24 Hours Test 10/07/16 16:40 10/07/16 16:41 10/07/16 18:00 10/07/16 21:20 Range/Units Urine Color DK YELLOW Urine Appearance TURBID CLEAR Urine pH 5.0 4.5-7.5 Urine Specific [place] 1.018 1.000-1.030 Urine Protein TRACE NEG Urine Glucose (UA) NEG NEG Urine Ketones NEG NEG Urine Occult Blood 3+ NEG Urine Nitrite POS NEG Urine Bilirubin NEG NEG Urine Urobilinogen NEG NEG Urine Leukocyte Esterase TRACE NEG Urine WBC (Auto) 1-5 0-5 /hpf Urine RBC (Auto) >30 0-4 /hpf Urine Hyaline Casts (Auto) 10-30 0-5 /lpf Urine Epithelial Cells (Auto) 5-10 0-5 /lpf Urine Bacteria (Auto) NEG NEG Urine Pathogenic Casts 1-5 GRANULAR CASTS 0 /lpf Sodium Level 138 136-145 mmol/L Potassium Level 5.0 3.5-5.1 mmol/L Chloride Level 105 98-107 mmol/L Carbon Dioxide Level 13 21-32 mmol/L Anion Gap 20.0 3-11 mmol/L Blood Urea Nitrogen 102 7-18 mg/dl Creatinine 3.60 0.60-1.40 mg/dl Est Creatinine Clear Calc Drug Dose 18.5 ml/min Estimated GFR () 19.8 Estimated GFR (Non- 17.1 BUN/Creatinine Ratio 28.3 10-20 Random Glucose 87 70-99 mg/dl Calcium Level 8.7 8.5-10.1 mg/dl Magnesium Level 2.8 1.8-2.4 mg/dl Total Bilirubin 0.7 0.2-1 mg/dl Direct Bilirubin 0.5 0-0.2 mg/dl Aspartate Amino Transf (AST/SGOT) 86 15-37 U/L Alanine Aminotransferase (ALT/SGPT) 62 12-78 U/L Alkaline Phosphatase 194 45-117 U/L Ammonia 40.0 11-32 umol/L Total Protein 6.0 6.4-8.2 gm/dl Albumin 1.5 3.4-5.0 gm/dl Lipase 118 73-393 U/L White Blood Count 2.10 4.8-10.8 K/uL Red Blood Count 4.49 4.7-6.1 M/uL Hemoglobin 11.6 14.0-18.0 g/dL Hematocrit 35.2 42-52 % Mean Corpuscular Volume 78.4 80-100 fL Mean Corpuscular Hemoglobin 25.8 25-34 pg Mean Corpuscular Hemoglobin Concent 33.0 32-36 g/dl Platelet Count 39 130-400 K/uL RDW Standard Deviation 47.0 36.4-46.3 fL RDW Coefficient of Variation 17.0 11.5-14.5 % Nucleated RBC Absolute Count (auto) 0.03 0-0 K/uL Neutrophils % (Manual) 69.0 % Lymphocytes % (Manual) 23.0 % Monocytes % (Manual) 7.1 % Basophils % (Manual) 0.9 0-2 % Nucleated Red Blood Cells % 1.2 % Neutrophils # (Manual) 1.45 1.4-6.5 K/uL Total Absolute Neutrophils 1.45 1.4-6.5 K/uL Lymphocytes # (Manual) 0.48 1.2-3.4 K/uL Total Absolute Lymphocytes 0.48 1.2-3.4 K/uL Monocytes # (Manual) 0.15 0.11-0.59 K/uL Basophils # (Manual) 0.02 0-0.2 K/uL Toxic Granulation 3+ Platelet Estimate SIGNIFIC DECREASED Hypochromasia PRESENT Anisocytosis PRESENT Echinocytes 2+ Procalcitonin 156.37 0-0.5 ng/mL Test 10/07/16 21:28 10/08/16 01:21 10/08/16 04:17 10/08/16 06:04 Range/Units Lactic Acid Level 4.4 3.8 0.4-2.0 mmol/L Blood Gas Sample Site L Radial Bedside Blood Gas pH (LAB) 7.40 7.35-7.45 Bedside Blood Gas pCO2 (LAB) 27 35-46 mmHg Bedside Blood Gas pO2 (LAB) 55 80-95 mmHg Bedside Blood Gas HCO3 (LAB) 16 19-24 meq/L Bedside Blood Gas Total CO2 17 24-31 mEq/l Bedside Blood Gas Base Excess (LAB) -9.0 -9-1.8 meq/L Bedside Blood Gas O2 Saturation 90.0 90-95 % [place] Test Pass Oxygen Delivery Device Room Air White Blood Count 1.24 4.8-10.8 K/uL Red Blood Count 4.27 4.7-6.1 M/uL Hemoglobin 11.0 14.0-18.0 g/dL Hematocrit 33.1 42-52 % Mean Corpuscular Volume 77.5 80-100 fL Mean Corpuscular Hemoglobin 25.8 25-34 pg Mean Corpuscular Hemoglobin Concent 33.2 32-36 g/dl Platelet Count 37 130-400 K/uL RDW Standard Deviation 46.1 36.4-46.3 fL RDW Coefficient of Variation 17.1 11.5-14.5 % Neutrophils % (Manual) 63.8 % Lymphocytes % (Manual) 27.6 % Monocytes % (Manual) 6.9 % Metamyelocytes % 1.7 % Neutrophils # (Manual) 0.79 1.4-6.5 K/uL Total Absolute Neutrophils 0.79 1.4-6.5 K/uL Lymphocytes # (Manual) 0.34 1.2-3.4 K/uL Total Absolute Lymphocytes 0.34 1.2-3.4 K/uL Monocytes # (Manual) 0.09 0.11-0.59 K/uL Metamyelocytes # 0.02 0-0 K/uL Platelet Estimate SIGNIFIC DECREASED Spherocytes 1+ Echinocytes 1+ Sodium Level 143 136-145 mmol/L Potassium Level 4.1 3.5-5.1 mmol/L Chloride Level 111 98-107 mmol/L Carbon Dioxide Level 17 21-32 mmol/L Anion Gap 15.0 3-11 mmol/L Blood Urea Nitrogen 93 7-18 mg/dl Creatinine 2.20 0.60-1.40 mg/dl Est Creatinine Clear Calc Drug Dose 30.3 ml/min Estimated GFR () 35.9 Estimated GFR (Non- 31.0 BUN/Creatinine Ratio 42.2 10-20 Random Glucose 91 70-99 mg/dl Calcium Level 7.8 8.5-10.1 mg/dl Phosphorus Level 5.1 2.5-4.9 mg/dl Magnesium Level 2.7 1.8-2.4 mg/dl Total Bilirubin 0.9 0.2-1 mg/dl Aspartate Amino Transf (AST/SGOT) 73 15-37 U/L Alanine Aminotransferase (ALT/SGPT) 55 12-78 U/L Alkaline Phosphatase 155 45-117 U/L Troponin I < 0.015 0-0.045 ng/ml Total Protein 5.0 6.4-8.2 gm/dl Albumin 1.2 3.4-5.0 gm/dl Globulin 3.8 2.5-4.0 gm/dl Albumin/Globulin Ratio 0.3 0.9-2 Random Cortisol 32.80 mcg/dl Test 10/08/16 08:35 Range/Units Microbiology Results 10/07/16 Blood Culture, Received Pending 10/07/16 Blood Culture, Received Pending 10/07/16 MRSA DNA Surveillance Screen - Final, Complete Specimen Negative for MRSA by DNA Probe 10/07/16 Urine Culture, Received Pending
[2016-10-08] MEDS: CYANOCOBALAMIN 500 MCG TAB (VIT B-12) PO SCH ×2 (09:15→10:49)
[2016-10-08] MEDS: DIVALPROEX SODIUM 500 MG DELAY RELEASE TAB PO SCH (09:15)
--- NOTE | 2016-10-08 09:37 | ECHOCARDIOGRAM REPORT ---
*NOTICE TO RECEIVING CONSTITUTION PARTY AGENCY This information is strictly Confidential and protected under [place] law. [place] law prohibits you from making any further disclosure of this information unless further disclosure is expressly permitted by the written consent of the person to whom it pertains or is authorized by law. A general authorization for the release of medical or other information is not sufficient for this purpose. Hospital accepts no responsibility if the information is made available to any other person, INCLUDING THE PATIENT. Interpretation Summary * Conclusions -- * The left ventricle is normal in size. * There is mild concentric left ventricular hypertrophy. * The left ventricular wall motion is normal. * The left ventricle is hyperdynamic. * Ejection Fraction = 65-70%. * The left atrial size is normal. * There is no pericardial effusion. * Incidental finding of hepatic mass on subcostal imaging noted. Procedure Details * A complete two-dimensional transthoracic echocardiogram was performed (2D, M-mode, Doppler and color flow Doppler). * A contrast injection of Definity was performed to improve assessment of LV function. * Contrast was injected into an intravenous site in the left arm. * One vial of Definity ultrasound contrast was diluted in normal saline to a total volume of 10 ml. A total of '3' ml of solution was administered during imaging. * Lot # [id number] of Definity utilized for procedure. * Expiration date SEP 03. * The attending nurse who injected the contrast agent was Hao Vuong RN. Left Ventricle * The left ventricle is normal in size. * There is mild concentric left ventricular hypertrophy. * Ejection Fraction = 65-70%. * The left ventricle is hyperdynamic. * The left ventricular wall motion is normal. Right Ventricle * The right ventricle is normal in size and function. Atria * The left atrial size is normal. * Right atrial size is normal. * No ASD detected; PFO is not assessed. Mitral Valve * The mitral valve is normal. * There is no mitral valve stenosis. * There is trace mitral regurgitation. Tricuspid Valve * The tricuspid valve is normal. * There is no tricuspid stenosis. * There is trace tricuspid regurgitation. Aortic Valve * The aortic valve is trileaflet. * No hemodynamically significant valvular aortic stenosis. * No aortic regurgitation is present. Pulmonic Valve * The pulmonic valve is not well visualized. Great Vessels * The aortic root is normal size. Pericardium/Pleural * There is no pericardial effusion. Great Vessels * Normal inferior vena cava diameter and respiratory variation suggests normal central venous pressure. MMode 2D Measurements and Calculations IVSd 1.1 cm LVIDd 3.8 cm LVIDs 2.4 cm LVPWd 1.2 cm IVS/LVPW 0.89 FS 38.7 % EDV(Teich) 63.6 ml ESV(Teich) 19.2 ml EF(Teich) 69.7 % EDV(cubed) 56.7 ml ESV(cubed) 13.1 ml EF(cubed) 76.9 % LV mass(C)d 149.2 grams LV mass(C)dI 84.3 grams/m\S\2 CO(Teich) 3.5 l/min CI(Teich) 2.0 l/min/m\S\2 SV(Teich) 44.3 ml SI(Teich) 25.0 ml/m\S\2 CO(cubed) 3.5 l/min CI(cubed) 2.0 l/min/m\S\2 SV(cubed) 43.6 ml SI(cubed) 24.6 ml/m\S\2 LVAd ap4 25.9 cm\S\2 LVLd ap4 7.4 cm EDV(MOD-sp4) 74.0 ml LVAs ap4 12.6 cm\S\2 LVLs ap4 6.5 cm ESV(MOD-sp4) 21.0 ml EF(MOD-sp4) 71.6 % LVAd ap2 24.9 cm\S\2 LVLd ap2 7.5 cm EDV(MOD-sp2) 67.0 ml LVAs ap2 12.7 cm\S\2 LVLs ap2 6.0 cm ESV(MOD-sp2) 22.0 ml EF(MOD-sp2) 67.2 % CO(MOD-sp4) 4.2 l/min CI(MOD-sp4) 2.4 l/min/m\S\2 SV(MOD-sp4) 53.0 ml SI(MOD-sp4) 29.9 ml/m\S\2 CO(MOD-sp2) 3.6 l/min CI(MOD-sp2) 2.0 l/min/m\S\2 SV(MOD-sp2) 45.0 ml SI(MOD-sp2) 25.4 ml/m\S\2 Doppler Measurements and Calculations MV E max gabby 47.6 cm/sec MV A max gabby 62.4 cm/sec MV E/A 0.76 MV dec time 0.17 sec Ao V2 max 98.3 cm/sec Ao max PG 3.9 mmHg Ao max PG (full) 1.9 mmHg AI max gabby 192.9 cm/sec AI max PG 14.9 mmHg AI dec slope 86.4 cm/sec\S\2 AI P1/2t 654.1 msec LV V1 max PG 1.9 mmHg LV V1 max 69.3 cm/sec
[2016-10-08] MEDS ORDERED: HYDROmorphone INJ 0.5 MG/0.5 ML SYR ONE (10:41)
[2016-10-08] MEDS ORDERED: NURSING VERBAL MED ORDER ONE (10:45)
[2016-10-08] MEDS ORDERED: METOPROLOL TARTRATE 25 MG TAB PO ONE (10:45)
[2016-10-08] MEDS: PANTOprazole INJ 40 MG in SYRINGE 0 ML IV SCH (11:27)
[2016-10-08 12:23] LABS: INFLUENZA A PCR Neg for Influ A (NEG); INFLUENZA B PCR Neg for Influ B (NEG)
--- NOTE | 2016-10-08 12:26 | CARDIOLOGY CONSULTATION ---
DATE OF CONSULTATION: 10/08/2016 REFERRING: Dr. Chu. INDICATIONS: Atrial fibrillation with rapid ventricular response. HISTORY OF PRESENT ILLNESS: The patient is a complex 60-year-old male whose history is notable for underlying issues of 2 ongoing malignancies including squamous cell carcinoma of the jaw and metastatic gastric carcinoma involving the liver. Underlying medical problems include hypothyroidism, history of grand mal seizure. The patient is receiving currently palliative chemotherapy per review of records. He presented to the Emergency Room yesterday with acute decline of approximately 1 day's duration, difficulty with urination, urinary obstruction and was found in the ER to be in atrial fibrillation with a rapid ventricular response. Laboratory studies demonstrated acute renal insufficiency with a creatinine of 3.6. The patient's atrial fibrillation converted after single dose of IV metoprolol. He is referred for ongoing cardiac management. The patient is unable to offer additional information, though provides additional data while in the room. ALLERGIES: CODEINE AND MORPHINE. MEDICATIONS PRIOR TO HOSPITALIZATION: Xeloda 500 mg 3 tablets b.i.d. for 14 days, then off for 7 days; vitamin B12 1000 mcg per day, Depakote 500 mg t.i.d., fentanyl 50 mcg patch, furosemide 20 mg p.o. daily, levothyroxine 150 mcg p.o. daily, simvastatin 20 mg q. p.m., Zofran and Phenergan p.r.n., lidocaine solution for swish and swallow as well as Magic Swizzle. PAST SURGICAL HISTORY: Notable for EGD with biopsy, past arthroscopic knee surgery. FAMILY HISTORY: Noncontributory. SOCIAL HISTORY: The patient is a nonsmoker but did use smokeless tobacco 1 can per day until recently, moderate alcohol use until recent. He is accompanied by his . PHYSICAL EXAMINATION: GENERAL: The patient is a chronically ill-appearing male. VITAL SIGNS: Heart rate is 82. Blood pressure is 114/74. HEENT: Normocephalic, atraumatic. NECK: Thin. There is no distinct jugular venous distention. LUNGS: Notable for diminished breath sounds diffusely, but no rhonchi, rale or wheeze. CARDIOVASCULAR: Regular with no enlargement of apical impulse or displacement. There is no audible murmur. ABDOMEN: Soft. EXTREMITIES: Without cyanosis or clubbing. There is no peripheral edema. LABORATORY DATA: White cell count is 1.2, hemoglobin is 11.0, hematocrit is 33.1, platelet count is 37,000. Sodium is 143, potassium is 4.1, chloride is 111, bicarb is 17, BUN is 93, creatinine is 2.2. Initial creatinine on presentation was 3.6. Troponin was 0.015. Echocardiogram today demonstrates hyperdynamic LV function, EF greater than 70%. No significant valvular disease. There is no pericardial effusion. IMPRESSION: Critically and chronically ill 60-year-old male presented with signs and symptoms of urinary obstruction with acute renal insufficiency and associated atrial fibrillation with rapid ventricular response. The patient has spontaneously converted to sinus rhythm. He would not be an anticoagulant candidate. LV systolic function was hyperdynamic, would recommend adding low-dose beta-casa with metoprolol 12.5 mg 3 times per day. Will assess heart rate and blood pressure response and tolerance. Overall underlying medical issues appear pressing. I would discontinue the simvastatin order. Treatment and assess other medical problems include signs and symptoms of urinary obstruction. JACED
--- NOTE | 2016-10-08 12:59 | Critical Care Progress Note ---
Critical Care Progress Note Date of Service Oct 08, 2016. Attending Dr. Redd Subjective No chest pain or shortness of breath Objective General Appearance: Resting in bed Head: atraumatic Neck: limited range of motion, other (fullness) Respiratory: rhonchi (scattered) Cardiovasular: irregular rate, abnormal rhythm Abdomen: RUQ TTP, LUQ TTP, RLQ TTP, LLQ TTP, suprapubic TTP Upper Extremities: no edema Lower Extremities: no deformity Neuro: alert, oriented x 3 Assessment & Plan (1) Atrial fibrillation with RVR (2) Pancytopenia due to chemotherapy (3) Lactic acid acidosis (4) Hyperammonemia (5) SHERI (acute kidney injury) (6) Metabolic acidosis, increased anion gap (7) Uremia (8) Generalized weakness (9) New onset a-fib (10) Severe dehydration (11) Gastric cancer (12) Seizure disorder Neuro: History of seizure disorder, reports no seizures the last 10 years, no report of brain metastases at this time Continue Depakote Elevated ammonia level, likely secondary to Depakote usage and possible hepatic insufficiency given her cancer history, likely metastases, lesions seen on ultrasound Discussed with pharmacy we do not have levocarnitine available for hyperammonemia Cardiovascular: New-onset A. fib, unknown length of duration. Discussed with Dr. Rocha, beta casa added Hypotension: Resolved with quaker of normal sinus rhythm Respiratory: GI: History of carcinomatosis, elevated AST Patient has diet Renal: Uremia, metabolic acidosis with elevated gap likely secondary to uremia and lactic acidosis, lactic acidosis, SHERI Aggressive fluid resuscitation, patient received 3 L normal saline, and S running at 125 convert to lactated Ringer's at 125 an hour. Repeat lactate minimal decrease, given findings of the liver, the patient may have decreased deficiency in clearing lactate Endocrine: Adequate cortisol response Hematology: Pancytopenia likely secondary to chemotherapeutic effect and malignancy burden. Broad spectrum antibiotics in setting of possible sepsis Platelet count 39, will not chemically prophylaxis at this time. Patient high risk for venous thromboembolism given active malignancy, if found with venous thromboembolism would highly consider [place] filter No active evidence for recurrent PE at this time, will place SCDs Infectious disease:: Procalcitonin extremely elevated, patient meets criteria for severe sepsis, other etiologies include hyperperfusion secondary to atrial fibrillation with rapid ventricular response Influenza negative On Zosyn and vancomycin will continue at this time Likely source at this time is urinary, nitrate positive Will need neutropenic precautions as well as white blood cell count continues to decrease Hemodynamically the patient has significantly improved, he is stable for downgraded to telemetry status. Data Medications: Current Inpatient Medications Medications (Trade) Dose Ordered Sig/Ember Route Start Time Stop Time Status Last Admin Dose Admin Acetaminophen (Tylenol Tab) 650 mg Q4H PRN PO 10/07/16 19:45 11/06/16 19:44 Levalbuterol (Xopenex 0.63 Mg/ 3 Ml Neb) 0.63 mg QID PRN INH 10/07/16 19:45 11/06/16 19:44 Ondansetron HCl (Zofran Inj) 4 mg Q6H PRN IV 10/07/16 19:45 11/06/16 19:44 Cyanocobalamin (Vitamin B-12 Tab) 1,000 mcg DAILY PO 10/08/16 09:00 11/07/16 08:59 Acetaminophen/ Hydrocodone Bitart (Brandon 5/325 Tab) 1 tab Q6 PRN PO 10/07/16 20:15 10/21/16 20:14 Capecitabine (Capecitabine) 1,500 mg BID@0000,1200 PO 10/08/16 00:00 10/11/16 00:00 10/08/16 12:18 1,500 MG Vancomycin HCl (Consult) 1 ea UD PRN N/A 10/07/16 22:30 11/06/16 22:29 Piperacillin Sod/ Tazobactam Sod 1 ea 1 ea UD PRN N/A 10/07/16 22:30 11/06/16 22:29 Lactated Ringer's 1,000 ml @ 125 mls/hr Q8H IV 10/07/16 23:45 11/06/16 23:44 10/08/16 09:15 125 MLS/HR Piperacillin Sod/ Tazobactam Sod 4.5 gm/Dextrose 120 ml @ 30 mls/hr Q8H IV 10/08/16 16:00 10/18/16 15:59 Levetiracetam 500 mg/Dextrose 105 ml @ 420 mls/hr Q12@0300,1500 IV 10/08/16 15:00 11/07/16 14:59 Levothyroxine Sodium 50 mcg/ Syringe 2.5 ml @ 2 mls/min DAILY@09 IV 10/09/16 09:00 11/08/16 08:59 Pantoprazole Sodium/Syringe (Protonix Inj/ Syringe) 10 ml @ 5 mls/min DAILY@11 IV 10/08/16 11:00 11/07/16 10:59 10/08/16 11:27 5 MLS/MIN Hydromorphone HCl (Dilaudid Inj) 0.5 mg Q4H PRN IV 10/08/16 10:45 10/22/16 10:44 Metoprolol Tartrate (Lopressor Tab) 12.5 mg TID PO 10/08/16 14:00 11/07/16 13:59 I & O: 24-Hour Column 10/08/16 08:00 Intake Total 4297 ml Output Total 1000 ml Balance 3297 ml Vital Signs: Date Time Temp Pulse Resp B/P Pulse Ox O2 Delivery O2 Flow Rate FiO2 10/08/16 12:21 36.1 87 20 127/70 97 Nasal Cannula 2.0 10/08/16 08:00 Nasal Cannula 2.0 10/08/16 08:00 77 22 112/71 94 Nasal Cannula 2.0 10/08/16 06:28 81 23 114/74 96 10/08/16 06:13 82 24 102/73 96 10/08/16 05:58 80 18 116/79 96 10/08/16 05:43 77 24 106/69 96 10/08/16 05:29 80 26 114/76 96 10/08/16 05:14 78 18 92/74 97 10/08/16 04:58 76 23 101/66 97 10/08/16 04:43 74 24 97/64 96 10/08/16 04:28 76 23 99/62 96 10/08/16 04:27 93 Room Air 10/08/16 04:14 82 25 99/67 94 10/08/16 03:29 80 24 104/67 94 10/08/16 03:13 73 23 98/69 94 10/08/16 02:58 75 25 95/63 94 10/08/16 02:43 72 24 102/68 93 10/08/16 02:28 71 22 98/59 94 10/08/16 02:13 71 23 97/68 94 10/08/16 01:58 74 23 98/63 94 10/08/16 01:43 68 23 99/60 95 10/08/16 01:29 77 24 98/67 94 10/08/16 01:14 77 25 55/45 95 10/08/16 00:28 73 22 105/65 97 10/08/16 00:13 74 22 97/59 94 10/08/16 00:05 93 Room Air 10/07/16 23:58 71 22 95/57 93 10/07/16 23:43 73 24 96/63 94 10/07/16 23:28 77 21 104/63 94 10/07/16 23:13 74 20 96/60 95 10/07/16 22:58 76 22 88/62 95 10/07/16 22:43 78 21 102/66 95 10/07/16 22:28 36.4 85 18 99/58 95 Room Air 10/07/16 22:28 78 24 97/67 96 10/07/16 22:13 80 21 86/63 94 10/07/16 21:05 36.4 85 18 99/58 95 Room Air 10/07/16 20:36 117 20 73/57 96 Room Air 10/07/16 20:19 146 102/59 10/07/16 19:30 156 20 123/93 94 Room Air 10/07/16 18:26 36.7 10/07/16 18:00 145 17 96/64 93 Room Air 10/07/16 17:46 141 10/07/16 16:07 117 18 67/48 92 Room Air Laboratory Results: Last 24 Hours Test 10/07/16 16:40 10/07/16 16:41 10/07/16 18:00 10/07/16 21:20 Urine Color DK YELLOW Urine Appearance TURBID Urine pH 5.0 Urine Specific [place] 1.018 Urine Protein TRACE Urine Glucose (UA) NEG Urine Ketones NEG Urine Occult Blood 3+ Urine Nitrite POS Urine Bilirubin NEG Urine Urobilinogen NEG Urine Leukocyte Esterase TRACE Urine WBC (Auto) 1-5 /hpf Urine RBC (Auto) >30 /hpf Urine Hyaline Casts (Auto) 10-30 /lpf Urine Epithelial Cells (Auto) 5-10 /lpf Urine Bacteria (Auto) NEG Urine Pathogenic Casts 1-5 GRANULAR CASTS /lpf Sodium Level 138 mmol/L Potassium Level 5.0 mmol/L Chloride Level 105 mmol/L Carbon Dioxide Level 13 mmol/L Anion Gap 20.0 mmol/L Blood Urea Nitrogen 102 mg/dl Creatinine 3.60 mg/dl Est Creatinine Clear Calc Drug Dose 18.5 ml/min Estimated GFR () 19.8 Estimated GFR (Non- 17.1 BUN/Creatinine Ratio 28.3 Random Glucose 87 mg/dl Calcium Level 8.7 mg/dl Magnesium Level 2.8 mg/dl Total Bilirubin 0.7 mg/dl Direct Bilirubin 0.5 mg/dl Aspartate Amino Transf (AST/SGOT) 86 U/L Alanine Aminotransferase (ALT/SGPT) 62 U/L Alkaline Phosphatase 194 U/L Ammonia 40.0 umol/L Total Protein 6.0 gm/dl Albumin 1.5 gm/dl Lipase 118 U/L White Blood Count 2.10 K/uL Red Blood Count 4.49 M/uL Hemoglobin 11.6 g/dL Hematocrit 35.2 % Mean Corpuscular Volume 78.4 fL Mean Corpuscular Hemoglobin 25.8 pg Mean Corpuscular Hemoglobin Concent 33.0 g/dl Platelet Count 39 K/uL RDW Standard Deviation 47.0 fL RDW Coefficient of Variation 17.0 % Nucleated RBC Absolute Count (auto) 0.03 K/uL Neutrophils % (Manual) 69.0 % Lymphocytes % (Manual) 23.0 % Monocytes % (Manual) 7.1 % Basophils % (Manual) 0.9 % Nucleated Red Blood Cells % 1.2 % Neutrophils # (Manual) 1.45 K/uL Total Absolute Neutrophils 1.45 K/uL Lymphocytes # (Manual) 0.48 K/uL Total Absolute Lymphocytes 0.48 K/uL Monocytes # (Manual) 0.15 K/uL Basophils # (Manual) 0.02 K/uL Toxic Granulation 3+ Platelet Estimate SIGNIFIC DECREASED Hypochromasia PRESENT Anisocytosis PRESENT Echinocytes 2+ Procalcitonin 156.37 ng/mL Test 10/07/16 21:28 10/08/16 01:21 10/08/16 04:17 10/08/16 06:04 Lactic Acid Level 4.4 mmol/L 3.8 mmol/L Blood Gas Sample Site L Radial Bedside Blood Gas pH (LAB) 7.40 Bedside Blood Gas pCO2 (LAB) 27 mmHg Bedside Blood Gas pO2 (LAB) 55 mmHg Bedside Blood Gas HCO3 (LAB) 16 meq/L Bedside Blood Gas Total CO2 17 mEq/l Bedside Blood Gas Base Excess (LAB) -9.0 meq/L Bedside Blood Gas O2 Saturation 90.0 % Seymour Test Pass Oxygen Delivery Device Room Air White Blood Count 1.24 K/uL Red Blood Count 4.27 M/uL Hemoglobin 11.0 g/dL Hematocrit 33.1 % Mean Corpuscular Volume 77.5 fL Mean Corpuscular Hemoglobin 25.8 pg Mean Corpuscular Hemoglobin Concent 33.2 g/dl Platelet Count 37 K/uL RDW Standard Deviation 46.1 fL RDW Coefficient of Variation 17.1 % Neutrophils % (Manual) 63.8 % Lymphocytes % (Manual) 27.6 % Monocytes % (Manual) 6.9 % Metamyelocytes % 1.7 % Neutrophils # (Manual) 0.79 K/uL Total Absolute Neutrophils 0.79 K/uL Lymphocytes # (Manual) 0.34 K/uL Total Absolute Lymphocytes 0.34 K/uL Monocytes # (Manual) 0.09 K/uL Metamyelocytes # 0.02 K/uL Platelet Estimate SIGNIFIC DECREASED Spherocytes 1+ Echinocytes 1+ Sodium Level 143 mmol/L Potassium Level 4.1 mmol/L Chloride Level 111 mmol/L Carbon Dioxide Level 17 mmol/L Anion Gap 15.0 mmol/L Blood Urea Nitrogen 93 mg/dl Creatinine 2.20 mg/dl Est Creatinine Clear Calc Drug Dose 30.3 ml/min Estimated GFR () 35.9 Estimated GFR (Non- 31.0 BUN/Creatinine Ratio 42.2 Random Glucose 91 mg/dl Calcium Level 7.8 mg/dl Phosphorus Level 5.1 mg/dl Magnesium Level 2.7 mg/dl Total Bilirubin 0.9 mg/dl Aspartate Amino Transf (AST/SGOT) 73 U/L Alanine Aminotransferase (ALT/SGPT) 55 U/L Alkaline Phosphatase 155 U/L Troponin I < 0.015 ng/ml Total Protein 5.0 gm/dl Albumin 1.2 gm/dl Globulin 3.8 gm/dl Albumin/Globulin Ratio 0.3 Random Cortisol 32.80 mcg/dl Test 10/08/16 08:57 10/08/16 09:50 10/08/16 11:50 Random Vancomycin Level 19.1 mcg/ml Influenza Type A (RT-PCR) Neg for Influ A Influenza Type B (RT-PCR) Neg for Influ B Troponin I < 0.015 ng/ml
[2016-10-08] MEDS ORDERED: VANCOMYCIN INJ 500 MG in SODIUM CHLORIDE 0.9% 250ML 250 ML IV ONE (14:00)
[2016-10-08] MEDS: METOPROLOL TARTRATE 25 MG TAB PO SCH ×2 (14:00→21:27)
[2016-10-08] MEDS: LEVETIRACETAM IV 500 MG in DEXTROSE 5% 100ML 100 ML IV SCH (16:35)
[2016-10-08] MEDS: BOOST PLUS VANILLA PO SCH ×2 (16:45)
[2016-10-08] MEDS: PIPERACILL/TAZOBAC IV 4.5 GM in DEXTROSE 5% 100ML IV SCH (17:13)
[2016-10-09] VITALS (12 sets, daily range): BP systolic 90–137; BP diastolic 54–83; PULSE 64–74; TEMP 35.8–37; O2SAT 96–98
[2016-10-09] MEDS: PIPERACILL/TAZOBAC IV 4.5 GM in DEXTROSE 5% 100ML IV SCH ×4 (00:17→23:43)
[2016-10-09] MEDS: LACTATED RINGER'S 1000ML 1,000 ML IV SCH ×4 (00:17→23:43)
[2016-10-09] MEDS: CAPECITABINE 500 MG TAB PO SCH (00:18)
[2016-10-09] MEDS: ONDANSETRON INJ 2 MG/ML 2 ML VIAL IV PRN (00:52)
[2016-10-09] MEDS: LEVETIRACETAM IV 500 MG in DEXTROSE 5% 100ML 100 ML IV SCH ×2 (03:00→14:45)
[2016-10-09 05:16] LABS: BUN/CREATININE RATIO 49.4 (10-20); CALCIUM 7.9 mg/dl (8.5-10.1); CREATININE 1.7 mg/dl (0.60-1.40); MAGNESIUM 2.8 mg/dl (1.8-2.4); POTASSIUM 3.9 mmol/L (3.5-5.1)
[2016-10-09 05:35] LABS: ALB/GLOB RATIO 0.3 (0.9-2); PHOSPHORUS 4.1 mg/dl (2.5-4.9)
[2016-10-09 05:44] LABS: HEMATOCRIT 33.8 % (42-52); MEAN CORPUSCULAR HEMOGLOBIN 25.5 pg (25-34); MEAN CORPUSCULAR HGB CONC 32.2 g/dl (32-36); PLATELET COUNT 19 K/uL (130-400); RED BLOOD COUNT 4.28 M/uL (4.7-6.1); WHITE BLOOD COUNT 0.95 K/uL (4.8-10.8)
[2016-10-09 05:46] LABS: COMPLETE YES; DOHLE BODIES 1+; ECHINOCYTES 2+; IG% 7.4 %; LYMPH % 25.3 %; LYMPH ABS # 0.24 K/uL (1.2-3.4); MONO % 11.6 %; NEUT % 55.7 %; PLT ESTIMATE SIGNIFIC DECREASED; SPHEROCYTE 1+; TOXIC GRANULATION 2+
[2016-10-09] MEDS: BOOST PLUS VANILLA PO SCH ×6 (07:30→16:45)
[2016-10-09] MEDS: PANTOprazole INJ 40 MG in SYRINGE 0 ML IV SCH (08:19)
[2016-10-09] MEDS: CYANOCOBALAMIN 500 MCG TAB (VIT B-12) PO SCH (09:22)
[2016-10-09] MEDS: LEVOTHYROXINE SODIUM INJ 50 MCG in SYRINGE 0 ML IV SCH (09:22)
[2016-10-09] MEDS: METOPROLOL TARTRATE 25 MG TAB PO SCH ×3 (09:22→21:29)
[2016-10-09] MEDS: HYDROmorphone INJ 0.5 MG/0.5 ML SYR IV PRN ×2 (09:35→23:49)
--- NOTE | 2016-10-09 09:59 | CARDIOLOGY PROGRESS NOTE ---
DATE: 10/09/2016 FOLLOWUP NOTE SUBJECTIVE: The patient seen and examined. Chart, medications, telemetry reviewed. The patient will respond by gesturing and turning head. No verbalization, but at baseline compares to prior day. OBJECTIVE: VITAL SIGNS: Heart rate is 68, blood pressure is 98/61. NECK: Thin. There is no distinct jugular venous distention. LUNGS: Revealed mildly diminished breath sounds. CARDIOVASCULAR: Regular. There is no S3 gallop. ABDOMEN: Soft with mild distention. EXTREMITIES: Without edema. LABORATORY DATA: Sodium is 146, potassium 3.9, chloride is 114, bicarbonate is 19, BUN is 84, creatinine is 1.7. AST 61. Albumin level is 1.1. White cell count 0.95, platelet count 19,000. IMPRESSION: The patient is a 60-year-old male referred for transient atrial fibrillation on hospital presentation with acute illness. Atrial fibrillation has resolved with low dose beta casa. Overall underlying medical problems however appear very pressing. Would continue low dose metoprolol. Continue IV fluid resuscitation. Overall prognosis limited. MTDD
--- NOTE | 2016-10-09 11:57 | Progress Note ---
Internal Med Progress Note Date of Service: Oct 09, 2016. Provider Documentation: SUBJECTIVE: The patient was seen and examined in presence of the Remains generally weak and lethargic Condition deteriorated OBJECTIVE: Vital Signs-as noted below Exam: General-Moderate distress at rest Remains very weak and lethargic Eyes-Normal ENT-normal Neck-Supple,right sided facial swelling Lungs-Decreased breath sound bilaterally Heart-Regular Abdomen-Mildly distended,soft and tender to palpate Extremities-Trace edema bilaterally Neuro-AA Generally weak and lethargic Lab data as noted below. ASSESSMENT & PLAN: Severe Dehydration With Hypotension and Lethargy: R/O sepsis, On IV Vanco and Zosyn Panculture-Negative Appreciate [employer] input Dehydration is improving Metastatic gastric cancer: S/P radiation therapy Continue chemotherapy for now Poor prognosis-discussed with the Chemotherapy is on hold for worsening pancytopenia Discussed with the Oncologist-Dr Reynoso DIC w/u Atrial fibrillation with RVR: Reverted to SR and remaisn in SR No anticoagulation ,hematuria and Low platelet Monitor in Telemetry Acute Renal Failure Likely prerenal secondary to decreased oral intake US kidneys -renal cyst otherwise unremarkable IV fluid and monitor May need Nephrology Renal function is improving Pancytopenia: Likely secondary to chemotherapy Neutropenia and Thrombocytopenia Neutropenic Precaution Hold Chemotherapy Seizure disorder: Stable Continue home meds Hypothyroidism: Stable Continue levothyroxine DVT Px: SCDs- given hematuria, Thrombocytopenia Potential for clot formation US legs if positive may consider Filter Code Status: Full code Discussed with Poor prognosis Vital Signs: Date Time Temp Pulse Resp B/P Pulse Ox O2 Delivery O2 Flow Rate FiO2 10/09/16 09:21 74 109/65 10/09/16 08:05 36.3 68 22 98/61 96 Nasal Cannula 2.0 10/09/16 04:00 Nasal Cannula 1.0 10/09/16 04:00 36.3 64 18 98/63 96 Nasal Cannula 1.0 10/09/16 00:06 36.3 72 22 104/76 98 Nasal Cannula 1.5 10/09/16 00:02 Nasal Cannula 1.0 10/08/16 20:18 36.4 70 21 114/88 99 Nasal Cannula 1.5 10/08/16 20:00 Nasal Cannula 1.0 10/08/16 16:39 36.2 70 21 120/71 97 Nasal Cannula 1.5 10/08/16 16:00 97 Nasal Cannula 2.0 10/08/16 14:31 69 92/73 10/08/16 12:21 36.1 87 20 127/70 97 Nasal Cannula 2.0 Lab Results: Results Past 24 Hours Test 10/08/16 16:11 10/08/16 20:40 10/08/16 21:30 10/09/16 04:37 Range/Units Bedside Glucose 88 91 70-99 mg/dl Urine Random Creatinine 72.0 mg/dl Urine Random Sodium 5 mEq/L White Blood Count 0.95 4.8-10.8 K/uL Red Blood Count 4.28 4.7-6.1 M/uL Hemoglobin 10.9 14.0-18.0 g/dL Hematocrit 33.8 42-52 % Mean Corpuscular Volume 79.0 80-100 fL Mean Corpuscular Hemoglobin 25.5 25-34 pg Mean Corpuscular Hemoglobin Concent 32.2 32-36 g/dl Platelet Count 19 130-400 K/uL Neutrophils (%) (Auto) 55.7 % Lymphocytes (%) (Auto) 25.3 % Monocytes (%) (Auto) 11.6 % Eosinophils (%) (Auto) 0.0 % Basophils (%) (Auto) 0.0 % Neutrophils # (Auto) 0.53 1.4-6.5 K/uL Lymphocytes # (Auto) 0.24 1.2-3.4 K/uL Monocytes # (Auto) 0.11 0.11-0.59 K/uL Eosinophils # (Auto) 0.00 0-0.5 K/uL Basophils # (Auto) 0.00 0-0.2 K/uL RDW Standard Deviation 47.8 36.4-46.3 fL RDW Coefficient of Variation 17.2 11.5-14.5 % Immature Granulocyte % (Auto) 7.4 % Immature Granulocyte # (Auto) 0.07 0.00-0.02 K/uL Toxic Granulation 2+ Dohle Bodies 1+ Platelet Estimate SIGNIFIC DECREASED Spherocytes 1+ Echinocytes 2+ Sodium Level 146 136-145 mmol/L Potassium Level 3.9 3.5-5.1 mmol/L Chloride Level 114 98-107 mmol/L Carbon Dioxide Level 19 21-32 mmol/L Anion Gap 13.0 3-11 mmol/L Blood Urea Nitrogen 84 7-18 mg/dl Creatinine 1.70 0.60-1.40 mg/dl Est Creatinine Clear Calc Drug Dose 39.2 ml/min Estimated GFR () 49.0 Estimated GFR (Non- 42.3 BUN/Creatinine Ratio 49.4 10-20 Random Glucose 113 70-99 mg/dl Calcium Level 7.9 8.5-10.1 mg/dl Phosphorus Level 4.1 2.5-4.9 mg/dl Magnesium Level 2.8 1.8-2.4 mg/dl Total Bilirubin 1.0 0.2-1 mg/dl Aspartate Amino Transf (AST/SGOT) 61 15-37 U/L Alanine Aminotransferase (ALT/SGPT) 46 12-78 U/L Alkaline Phosphatase 137 45-117 U/L Total Protein 4.8 6.4-8.2 gm/dl Albumin 1.1 3.4-5.0 gm/dl Globulin 3.7 2.5-4.0 gm/dl Albumin/Globulin Ratio 0.3 0.9-2 Random Vancomycin Level 13.5 mcg/ml Test 10/09/16 06:50 10/09/16 11:05 10/09/16 11:38 Range/Units Bedside Glucose 85 83 70-99 mg/dl
[2016-10-09] MEDS: VANCOMYCIN INJ 1,100 MG in SODIUM CHLORIDE 0.9% 250ML 250 ML IV SCH (12:16)
[2016-10-09 12:41] LABS: FIBRINOGEN* 381 mg/dl (184-400); INR 1.7 (0.9-1.1); PARTIAL THROMBOPLASTIN RATIO 1.2; PROTHROMBIN TIME (PATIENT) 18.7 SECONDS (9.0-12.0)
[2016-10-10] VITALS (12 sets, daily range): BP systolic 101–113; BP diastolic 56–71; PULSE 66–77; TEMP 36.3–36.9; O2SAT 92–96
[2016-10-10] MEDS: LEVETIRACETAM IV 500 MG in DEXTROSE 5% 100ML 100 ML IV SCH ×2 (02:52→16:12)
[2016-10-10 06:35] LABS: BUN/CREATININE RATIO 43.4 (10-20); CALCIUM 8.1 mg/dl (8.5-10.1); CREATININE 1.4 mg/dl (0.60-1.40); POTASSIUM 3.9 mmol/L (3.5-5.1)
[2016-10-10 06:37] LABS: ALB/GLOB RATIO 0.3 (0.9-2)
[2016-10-10 06:45] LABS: COMPLETE YES; HEMATOCRIT 32.6 % (42-52); IG% 7.5 %; LYMPH % 43.3 %; LYMPH ABS # 0.29 K/uL (1.2-3.4); MEAN CELL VOLUME 79.1 fL (80-100); MEAN CORPUSCULAR HEMOGLOBIN 25.5 pg (25-34); MEAN CORPUSCULAR HGB CONC 32.2 g/dl (32-36); MONO % 4.5 %; NEUT % 44.7 %; PLATELET COUNT 8 K/uL (130-400); RED BLOOD COUNT 4.12 M/uL (4.7-6.1); WHITE BLOOD COUNT 0.67 K/uL (4.8-10.8)
[2016-10-10 06:46] LABS: ECHINOCYTES 1+; LARGE PLATELETS 1+
[2016-10-10] MEDS: BOOST PLUS VANILLA PO SCH ×6 (08:11→16:12)
[2016-10-10] MEDS: LACTATED RINGER'S 1000ML 1,000 ML IV SCH ×3 (08:14→21:50)
[2016-10-10] MEDS: VANCOMYCIN INJ 1,100 MG in SODIUM CHLORIDE 0.9% 250ML 250 ML IV SCH (08:14)
[2016-10-10] MEDS: PIPERACILL/TAZOBAC IV 4.5 GM in DEXTROSE 5% 100ML IV SCH ×3 (08:14→23:48)
[2016-10-10] MEDS: METOPROLOL TARTRATE 25 MG TAB PO SCH ×3 (08:15→20:23)
[2016-10-10] MEDS: PANTOprazole INJ 40 MG in SYRINGE 0 ML IV SCH (08:15)
[2016-10-10] MEDS: CYANOCOBALAMIN 500 MCG TAB (VIT B-12) PO SCH (08:16)
[2016-10-10] MEDS: LEVOTHYROXINE SODIUM INJ 50 MCG in SYRINGE 0 ML IV SCH (09:34)
--- NOTE | 2016-10-10 11:20 | CARDIOLOGY PROGRESS NOTE ---
DATE: 10/10/2016 The patient seen and examined. Chart and telemetry reviewed. SUBJECTIVE: The patient will arouse to stimuli. Telemetry reveals no further atrial arrhythmias. Denotes no specific complaints. OBJECTIVE: VITAL SIGNS: Heart rate 75, blood pressure is 113/71. NECK: Thin. There is no jugular venous distention. There are no carotid bruits. LUNGS: Reveal diminished breath sounds diffusely. CARDIOVASCULAR: Regular. There is no S3 gallop. EXTREMITIES: Free of edema. LABORATORY DATA: White cell count is 0.6. Platelet count is 8000. Sodium is 149, potassium is 3.9, chloride is 117, bicarbonate 21, BUN 61, creatinine is 1.4. IMPRESSION: A 60-year-old male with multiple ongoing medical issues with course complicated by atrial fibrillation with rapid ventricular response on initial presentation. He is converted to sinus rhythm, maintained in sinus rhythm on low dose beta casa. Would continue such. All other medical issues should be addressed as planned. Will sign off.
--- NOTE | 2016-10-10 13:40 | Progress Note ---
Internal Med Progress Note Date of Service: Oct 10, 2016. Provider Documentation: SUBJECTIVE: The patient was seen and examined in presence of the Remains generally weak and lethargic Condition deteriorated FURTHER OBJECTIVE: Vital Signs-as noted below Exam: General-Minimal distress at rest Remains very weak and lethargic Eyes-Normal ENT-normal Neck-Supple,right sided facial swelling Lungs-Decreased breath sound bilaterally Minimal crackles at the bases Heart-Regular Abdomen-Mildly distended,soft and very tender to palpate Extremities-Trace edema bilaterally Neuro-AA Generally weak and lethargic Lab data as noted below. ASSESSMENT & PLAN: Metastatic gastric cancer: S/P radiation therapy No More Continue chemotherapy Poor prognosis-discussed with the Discussed with the Oncologist-Dr Reynoso DIC w/u -negative Pancytopenia deteriorated Palliative care consult Severe Dehydration With Hypotension and Lethargy: R/O sepsis, On IV Vanco and Zosyn Panculture-Negative Appreciate Equal Opportunity Assistant input Dehydration is improving Atrial fibrillation with RVR: Reverted to SR and remaisn in SR No anticoagulation ,hematuria and Low platelet Monitor in Telemetry Appreciate Cardiology input Acute Renal Failure Likely prerenal secondary to decreased oral intake US kidneys -renal cyst otherwise unremarkable IV fluid and monitor May need Nephrology Renal function is improving Pancytopenia: Likely secondary to chemotherapy Neutropenia and Thrombocytopenia Neutropenic Precaution Hold Chemotherapy Deteriorated Will transfuse 1 unit Platelet Seizure disorder: Stable Continue home meds Hypothyroidism: Stable Continue levothyroxine DVT Px: SCDs- given hematuria, Thrombocytopenia Potential for clot formation US legs if positive may consider Filter Code Status: Full code Discussed with Poor prognosis Condition is deteriorating Palliative care consult Likely to make DNR and comfort care only from this afternoon/tomorrow Vital Signs: Date Time Temp Pulse Resp B/P Pulse Ox O2 Delivery O2 Flow Rate FiO2 10/10/16 08:23 36.9 75 18 113/71 95 10/10/16 08:00 Nasal Cannula 2.0 10/10/16 04:00 Nasal Cannula 1.0 10/10/16 03:47 36.4 77 18 112/67 96 Nasal Cannula 1.0 10/10/16 00:04 36.5 72 18 110/67 95 Nasal Cannula 1.0 10/10/16 00:02 Nasal Cannula 1.0 10/09/16 20:00 36.4 68 20 103/64 98 Nasal Cannula 2.0 10/09/16 20:00 Nasal Cannula 2.0 10/09/16 19:30 36.8 68 18 90/54 96 10/09/16 16:03 37.0 66 18 92/60 98 10/09/16 16:00 98 Nasal Cannula 2.0 10/09/16 13:51 70 107/64 Lab Results: Results Past 24 Hours Test 10/09/16 16:18 10/09/16 20:11 10/10/16 05:47 10/10/16 11:05 Range/Units Bedside Glucose 104 90 109 70-99 mg/dl White Blood Count 0.67 4.8-10.8 K/uL Red Blood Count 4.12 4.7-6.1 M/uL Hemoglobin 10.5 14.0-18.0 g/dL Hematocrit 32.6 42-52 % Mean Corpuscular Volume 79.1 80-100 fL Mean Corpuscular Hemoglobin 25.5 25-34 pg Mean Corpuscular Hemoglobin Concent 32.2 32-36 g/dl Platelet Count 8 130-400 K/uL Neutrophils (%) (Auto) 44.7 % Lymphocytes (%) (Auto) 43.3 % Monocytes (%) (Auto) 4.5 % Eosinophils (%) (Auto) 0.0 % Basophils (%) (Auto) 0.0 % Neutrophils # (Auto) 0.30 1.4-6.5 K/uL Lymphocytes # (Auto) 0.29 1.2-3.4 K/uL Monocytes # (Auto) 0.03 0.11-0.59 K/uL Eosinophils # (Auto) 0.00 0-0.5 K/uL Basophils # (Auto) 0.00 0-0.2 K/uL RDW Standard Deviation 48.6 36.4-46.3 fL RDW Coefficient of Variation 17.4 11.5-14.5 % Immature Granulocyte % (Auto) 7.5 % Immature Granulocyte # (Auto) 0.05 0.00-0.02 K/uL Large Platelets 1+ Echinocytes 1+ Sodium Level 149 136-145 mmol/L Potassium Level 3.9 3.5-5.1 mmol/L Chloride Level 117 98-107 mmol/L Carbon Dioxide Level 21 21-32 mmol/L Anion Gap 11.0 3-11 mmol/L Blood Urea Nitrogen 61 7-18 mg/dl Creatinine 1.40 0.60-1.40 mg/dl Est Creatinine Clear Calc Drug Dose 47.6 ml/min Estimated GFR () 62.0 Estimated GFR (Non- 53.5 BUN/Creatinine Ratio 43.4 10-20 Random Glucose 83 70-99 mg/dl Calcium Level 8.1 8.5-10.1 mg/dl Total Bilirubin 0.9 0.2-1 mg/dl Aspartate Amino Transf (AST/SGOT) 52 15-37 U/L Alanine Aminotransferase (ALT/SGPT) 37 12-78 U/L Alkaline Phosphatase 154 45-117 U/L Total Protein 4.5 6.4-8.2 gm/dl Albumin 1.1 3.4-5.0 gm/dl Globulin 3.4 2.5-4.0 gm/dl Albumin/Globulin Ratio 0.3 0.9-2
--- NOTE | 2016-10-10 16:13 | Palliative Care Consultation ---
Consultation Date of Consultation: Oct 10, 2016. Requesting Physician: Dr. Chu Attending Physician: Dr. Chu Reason for Consultation: Goals of care History of Present Illness This 60 year old male patient presented to the ED three days ago with complaints of lethargy, decreased appetite, low urine output, and overall not feeling well. This patient lives at home with his . She states that the patient has become progressively weak and really wasn't drinking or eating. The day of admission, he did not urinate at all. Also of note, she states that he had swelling and redness of the penis, which was new for him, and was making it difficult for him to urinate. Unfortunately, the patient was just diagnosed in Jun/Jul 2016 with stage IV gastric cancer, mets to the jaw causing fracture, and now renal ultrasound shows possible hepatic metastasis. He underwent radiation and was currently on chemotherapy before admission. He has lost 100lb since diagnosis and now has marked pancytopenia. In the ED, patient also went into atrial fibrillation with rapid ventricular response, but converted back to normal sinus rhythm with one dose of IV metoprolol. CXR showed minor basilar atelectasis. The family has decided that they do not want to continue with chemotherapy and are considering hospice/comfort care. Palliative care consulted to assist with establishing goals of care. I met with the patient's , first Victorina. We discussed patient's medical conditions, prognosis, and wishes. See discussion in plan below. The patient himself was lethargic, but awakened easily and was mostly oriented. Denied any pain or discomfort at this time, but does have pain in abdomen with any movement or repositioning in bed. He agrees that he does not want to continue chemotherapy and would like to focus on comfort. He does not feel ready to go home yet, but he would be willing to have hospice if he is able to go home. The patient expressed that he really would not like to go to a " [facility]." Past Medical/Surgical History Medical History: Seizure disorder, no seizure for years Metastatic gastric CA Hypothyroidism Dyslipidemia Pancytopenia Squamous cell carcinoma of the jaw Surgical History: Knee surgery Social History Smoking Status: Former Smoker (Chews [employer]) History of Alcohol Use: No (LAST DRINK IN JUNE 2016) Drug Use: none Marital Status: Review of Systems Constitutional: + weakness, + weight loss, No chills, No fever Respiratory: + cough, + dyspnea on exertion, No shortness of breath, No sputum Cardiac: No chest pain, No palpitations Abdomen: + pain, No nausea, No vomiting Male : No problem reported (cm catheter) Psychiatric: No anxiety Allergies Coded Allergies: Codeine (Verified Allergy, Unknown, rash, 10/07/16) Morphine (Verified Allergy, Unknown, rash, 10/07/16) Medications Current Inpatient Medications Medications (Trade) Dose Ordered Sig/Ember Route Start Time Stop Time Status Last Admin Dose Admin Acetaminophen (Tylenol Tab) 650 mg Q4H PRN PO 10/07/16 19:45 11/06/16 19:44 Levalbuterol (Xopenex 0.63 Mg/ 3 Ml Neb) 0.63 mg QID PRN INH 10/07/16 19:45 11/06/16 19:44 Ondansetron HCl (Zofran Inj) 4 mg Q6H PRN IV 10/07/16 19:45 11/06/16 19:44 10/09/16 00:52 4 MG Cyanocobalamin (Vitamin B-12 Tab) 1,000 mcg DAILY PO 10/08/16 09:00 11/07/16 08:59 10/10/16 08:16 1,000 MCG Acetaminophen/ Hydrocodone Bitart ([place] 5/325 Tab) 1 tab Q6 PRN PO 10/07/16 20:15 10/21/16 20:14 Capecitabine (Capecitabine) 1,500 mg BID@0000,1200 PO 10/08/16 00:00 10/11/16 00:00 Future Hold 10/09/16 00:18 1,500 MG Vancomycin HCl (Consult) 1 ea UD PRN N/A 10/07/16 22:30 11/06/16 22:29 Piperacillin Sod/ Tazobactam Sod 1 ea 1 ea UD PRN N/A 10/07/16 22:30 11/06/16 22:29 Lactated Ringer's 1,000 ml @ 125 mls/hr Q8H IV 10/07/16 23:45 11/06/16 23:44 10/10/16 08:14 125 MLS/HR Piperacillin Sod/ Tazobactam Sod 4.5 gm/Dextrose 120 ml @ 30 mls/hr Q8H IV 10/08/16 16:00 10/18/16 15:59 10/10/16 08:14 30 MLS/HR Levetiracetam 500 mg/Dextrose 105 ml @ 420 mls/hr Q12@0300,1500 IV 10/08/16 15:00 11/07/16 14:59 10/10/16 02:52 420 MLS/HR Levothyroxine Sodium 50 mcg/ Syringe 2.5 ml @ 2 mls/min DAILY@09 IV 10/09/16 09:00 11/08/16 08:59 10/10/16 09:34 2 MLS/MIN Pantoprazole Sodium/Syringe (Protonix Inj/ Syringe) 10 ml @ 5 mls/min DAILY@11 IV 10/08/16 11:00 11/07/16 10:59 10/10/16 08:15 5 MLS/MIN Hydromorphone HCl (Dilaudid Inj) 0.5 mg Q4H PRN IV 10/08/16 10:45 10/22/16 10:44 10/09/16 23:49 0.5 MG Metoprolol Tartrate (Lopressor Tab) 12.5 mg TID PO 10/08/16 14:00 11/07/16 13:59 10/10/16 13:51 12.5 MG Enteral Nutritional Formula 1 can 1 can TIDM PO 10/08/16 16:45 11/07/16 16:44 Vancomycin HCl/ Sodium Chloride (Vancomycin Inj/ Nss 250ml) 272 ml @ 125 mls/hr Q20H IV 10/09/16 12:00 10/23/16 11:59 10/10/16 08:14 125 MLS/HR Physical Exam Date Time Temp Pulse Resp B/P Pulse Ox O2 Delivery O2 Flow Rate FiO2 10/10/16 15:59 36.3 71 16 103/62 93 Room Air 10/10/16 15:28 36.5 69 22 103/62 93 10/10/16 15:00 36.3 67 21 103/61 93 10/10/16 14:15 36.5 72 21 101/63 93 10/10/16 14:07 36.5 73 23 106/64 93 Room Air 10/10/16 13:59 36.5 71 22 106/64 92 10/10/16 12:00 Nasal Cannula 2.0 10/10/16 08:23 36.9 75 18 113/71 95 10/10/16 08:00 Nasal Cannula 2.0 10/10/16 04:00 Nasal Cannula 1.0 10/10/16 03:47 36.4 77 18 112/67 96 Nasal Cannula 1.0 10/10/16 00:04 36.5 72 18 110/67 95 Nasal Cannula 1.0 10/10/16 00:02 Nasal Cannula 1.0 10/09/16 20:00 36.4 68 20 103/64 98 Nasal Cannula 2.0 10/09/16 20:00 Nasal Cannula 2.0 10/09/16 19:30 36.8 68 18 90/54 96 10/09/16 16:03 37.0 66 18 92/60 98 General Appearance: no apparent distress, + pertinent finding (chronically ill- appearing) Neck: no JVD, trachea midline Respiratory: no respiratory distress, no accessory muscle use, + decreased breath sounds, + pertinent finding (2LNC) Cardiovascular: regular rate, rhythm, no edema, + normal peripheral pulses Abdomen: normal bowel sounds, + tenderness Musculoskeletal: pertinent finding (generalized weakness) Neurologic/Psychiatric: normal mood/affect, oriented x 3, + pertinent finding ( drowsy) Laboratory Results Last 24 Hours Test 10/09/16 16:18 10/09/16 20:11 10/10/16 05:47 10/10/16 11:05 Bedside Glucose 104 mg/dl 90 mg/dl 109 mg/dl White Blood Count 0.67 K/uL Red Blood Count 4.12 M/uL Hemoglobin 10.5 g/dL Hematocrit 32.6 % Mean Corpuscular Volume 79.1 fL Mean Corpuscular Hemoglobin 25.5 pg Mean Corpuscular Hemoglobin Concent 32.2 g/dl Platelet Count 8 K/uL Neutrophils (%) (Auto) 44.7 % Lymphocytes (%) (Auto) 43.3 % Monocytes (%) (Auto) 4.5 % Eosinophils (%) (Auto) 0.0 % Basophils (%) (Auto) 0.0 % Neutrophils # (Auto) 0.30 K/uL Lymphocytes # (Auto) 0.29 K/uL Monocytes # (Auto) 0.03 K/uL Eosinophils # (Auto) 0.00 K/uL Basophils # (Auto) 0.00 K/uL RDW Standard Deviation 48.6 fL RDW Coefficient of Variation 17.4 % Immature Granulocyte % (Auto) 7.5 % Immature Granulocyte # (Auto) 0.05 K/uL Large Platelets 1+ Echinocytes 1+ Sodium Level 149 mmol/L Potassium Level 3.9 mmol/L Chloride Level 117 mmol/L Carbon Dioxide Level 21 mmol/L Anion Gap 11.0 mmol/L Blood Urea Nitrogen 61 mg/dl Creatinine 1.40 mg/dl Est Creatinine Clear Calc Drug Dose 47.6 ml/min Estimated GFR () 62.0 Estimated GFR (Non- 53.5 BUN/Creatinine Ratio 43.4 Random Glucose 83 mg/dl Calcium Level 8.1 mg/dl Total Bilirubin 0.9 mg/dl Aspartate Amino Transf (AST/SGOT) 52 U/L Alanine Aminotransferase (ALT/SGPT) 37 U/L Alkaline Phosphatase 154 U/L Total Protein 4.5 gm/dl Albumin 1.1 gm/dl Globulin 3.4 gm/dl Albumin/Globulin Ratio 0.3 Assessment & Plan Palliative Performance Scale: 30 % Problem list: Weakness Decreased PO intake Metastatic gastric cancer Dehydration with hypotension Afib with RVR Acute renal failure Pancytopenia Goals of care (Z51.5) Palliative care plan: After discussion with patient's , Monique Ro, and the patient, the goal is to continue conservative management as is for now, with an emphasis on comfort. The patient and are very realistic and stated several times that they know patient's condition is terminal and they'd really just like for him to live as long as possible, but also as comfortably as possible. They'd like this conservative treatment to continue in hopes of getting the patient well-enough, even if it's for a very brief period of time, to possibly get him home with hospice. If patient rapidly declines, they'd like to pursue comfort measures only. POLST should be completed on discharge. Patient has been refusing pain medication, but is clearly wincing and in pain when being repositioned. He wants to remain as alert as possible. He was taking hydrocodone/apap 5/325 PO only occasionally at home. He would be willing to try something similar. I would recommend Roxicodone solution (easier to swallow) 5mg PO Q4h PRN pain. Patient has allergy to morphine, states it was a rash. Thank you kindly for this consult. I will continue to follow as needed.
[2016-10-10] MEDS: HYDROmorphone INJ 0.5 MG/0.5 ML SYR IV PRN (21:50)
[2016-10-11] VITALS (9 sets, daily range): BP systolic 89–124; BP diastolic 61–83; PULSE 56–82; TEMP 36.2–36.8; O2SAT 90–95
[2016-10-11] MEDS: LEVETIRACETAM IV 500 MG in DEXTROSE 5% 100ML 100 ML IV SCH ×2 (03:13→15:00)
[2016-10-11] MEDS ORDERED: VANCOMYCIN TROUGH ONE (03:30)
[2016-10-11] MEDS: VANCOMYCIN INJ 1,100 MG in SODIUM CHLORIDE 0.9% 250ML 250 ML IV SCH (04:28)
[2016-10-11 04:29] LABS: BUN/CREATININE RATIO 44.5 (10-20); CALCIUM 7.9 mg/dl (8.5-10.1); MAGNESIUM 2.4 mg/dl (1.8-2.4); POTASSIUM 3.8 mmol/L (3.5-5.1)
[2016-10-11 04:37] LABS: HEMATOCRIT 30.3 % (42-52); MEAN CELL VOLUME 78.7 fL (80-100); MEAN CORPUSCULAR HEMOGLOBIN 25.7 pg (25-34); MEAN CORPUSCULAR HGB CONC 32.7 g/dl (32-36); RED BLOOD COUNT 3.85 M/uL (4.7-6.1); WHITE BLOOD COUNT 0.98 K/uL (4.8-10.8)
[2016-10-11 05:25] LABS: PLATELET COUNT 14 K/uL (130-400)
[2016-10-11] MEDS: BOOST PLUS VANILLA PO SCH ×6 (07:30→16:45)
[2016-10-11] MEDS: PIPERACILL/TAZOBAC IV 4.5 GM in DEXTROSE 5% 100ML IV SCH ×3 (08:17→23:27)
[2016-10-11] MEDS: METOPROLOL TARTRATE 25 MG TAB PO SCH ×3 (08:18→20:28)
[2016-10-11] MEDS: CYANOCOBALAMIN 500 MCG TAB (VIT B-12) PO SCH (08:18)
[2016-10-11] MEDS: LACTATED RINGER'S 1000ML 1,000 ML IV SCH ×3 (08:21→23:27)
[2016-10-11] MEDS: LEVOTHYROXINE SODIUM INJ 50 MCG in SYRINGE 0 ML IV SCH (09:29)
[2016-10-11] MEDS: HYDROmorphone INJ 0.5 MG/0.5 ML SYR IV PRN ×2 (11:13→22:26)
[2016-10-11] MEDS: PANTOprazole INJ 40 MG in SYRINGE 0 ML IV SCH (11:13)
--- NOTE | 2016-10-11 12:13 | PROGRESS NOTE ---
DATE: 10/11/2016 The patient seen and examined. Chart, medications, telemetry reviewed. SUBJECTIVE: Little change in the patient telemetry; however, it demonstrates a transient 2- to -3-second pauses on occasion, has had no further tachyarrhythmias. RECOMMENDATIONS: We will hold metoprolol at this point in time, await further plans regarding patient's management. Overall, prognosis is limited.
--- NOTE | 2016-10-11 12:28 | Progress Note ---
Internal Med Progress Note Date of Service: Oct 11, 2016. Provider Documentation: SUBJECTIVE: The patient was seen and examined in presence of the Remains generally weak and lethargic Condition is a little better today More conversive today Trying to eat -mechanical soft OBJECTIVE: Vital Signs-as noted below Exam: General-Minimal distress at rest Remains very weak and lethargic Eyes-Normal ENT-normal Neck-Supple,right sided facial swelling Lungs-Decreased breath sound bilaterally Minimal crackles at the bases Heart-Regular Abdomen-Mildly distended,soft and very tender to palpate Extremities-Trace edema bilaterally Neuro-AA Generally weak and lethargic Lab data as noted below. ASSESSMENT & PLAN: Metastatic gastric cancer: S/P radiation therapy No More Continue chemotherapy Poor prognosis-discussed with the Discussed with the Oncologist-Dr Edgardo ALFREDO w/u -negative Pancytopenia deteriorated Palliative care consult -appreciate input Discussed with the family members -continue current management and if deteriorated will go for comfort care only Severe Dehydration With Hypotension and Lethargy: R/O sepsis, On IV Vanco and Zosyn-continue for now Panculture-Negative Appreciate Retail Cashier Associate input Dehydration is worse Increase oral fluid Atrial fibrillation with RVR: Reverted to SR and remaisn in SR No anticoagulation ,hematuria and Low platelet Monitor in Telemetry Appreciate Cardiology input Acute Renal Failure Likely prerenal secondary to decreased oral intake US kidneys -renal cyst otherwise unremarkable IV fluid and monitor May need Nephrology Renal function is improving Pancytopenia: Likely secondary to chemotherapy Neutropenia and Thrombocytopenia Neutropenic Precaution Hold Chemotherapy Deteriorated Will transfuse 1 unit Platelet WCC and Platelets are better Seizure disorder: Stable Continue home meds Hypothyroidism: Stable Continue levothyroxine DVT Px: SCDs- given hematuria, Thrombocytopenia Potential for clot formation US legs if positive may consider Filter Code Status: Full code Discussed with Poor prognosis Condition is deteriorating Palliative care consult Likely to make DNR and comfort care only from this afternoon/tomorrow Discussed with the and family members Vital Signs: Date Time Temp Pulse Resp B/P Pulse Ox O2 Delivery O2 Flow Rate FiO2 10/11/16 12:09 36.4 69 20 94/61 92 Room Air 10/11/16 12:00 Room Air 10/11/16 08:20 36.5 72 18 124/71 93 Room Air 10/11/16 08:00 Room Air 10/11/16 04:03 Room Air 10/11/16 04:03 36.3 63 18 122/75 94 Room Air 10/11/16 00:10 Room Air 10/11/16 00:09 36.8 69 16 121/65 91 Room Air 10/10/16 20:09 36.8 66 16 111/68 92 Room Air 10/10/16 20:06 Room Air 10/10/16 16:36 36.5 72 23 105/56 92 10/10/16 16:00 36.4 71 23 105/62 92 10/10/16 16:00 Nasal Cannula 2.0 10/10/16 15:59 36.3 71 16 103/62 93 Room Air 10/10/16 15:28 36.5 69 22 103/62 93 10/10/16 15:00 36.3 67 21 103/61 93 10/10/16 14:15 36.5 72 21 101/63 93 10/10/16 14:07 36.5 73 23 106/64 93 Room Air 10/10/16 13:59 36.5 71 22 106/64 92 Lab Results: Results Past 24 Hours Test 10/11/16 03:55 Range/Units White Blood Count 0.98 4.8-10.8 K/uL Red Blood Count 3.85 4.7-6.1 M/uL Hemoglobin 9.9 14.0-18.0 g/dL Hematocrit 30.3 42-52 % Mean Corpuscular Volume 78.7 80-100 fL Mean Corpuscular Hemoglobin 25.7 25-34 pg Mean Corpuscular Hemoglobin Concent 32.7 32-36 g/dl RDW Standard Deviation 48.2 36.4-46.3 fL RDW Coefficient of Variation 17.3 11.5-14.5 % Platelet Count 14 130-400 K/uL Sodium Level 151 136-145 mmol/L Potassium Level 3.8 3.5-5.1 mmol/L Chloride Level 118 98-107 mmol/L Carbon Dioxide Level 23 21-32 mmol/L Anion Gap 10.0 3-11 mmol/L Blood Urea Nitrogen 44 7-18 mg/dl Creatinine 1.00 0.60-1.40 mg/dl Est Creatinine Clear Calc Drug Dose 72.8 ml/min Estimated GFR () 93.1 Estimated GFR (Non- 80.3 BUN/Creatinine Ratio 44.5 10-20 Random Glucose 86 70-99 mg/dl Calcium Level 7.9 8.5-10.1 mg/dl Phosphorus Level 2.0 2.5-4.9 mg/dl Magnesium Level 2.4 1.8-2.4 mg/dl Vancomycin Level Trough 12.1 SEE COMMENT mcg/ml
[2016-10-11] MEDS: ONDANSETRON INJ 2 MG/ML 2 ML VIAL IV PRN (16:26)
[2016-10-11] MEDS ORDERED: LORAZEPAM 2 MG/ML 1 ML VIAL IV SCH (19:40)
[2016-10-11] MEDS ORDERED: LORAZEPAM 2 MG/ML 1 ML VIAL IV PRN (19:45)
[2016-10-11] MEDS ORDERED: LORAZEPAM 2 MG/ML 1 ML VIAL ONE (19:51)
[2016-10-12] VITALS (7 sets, daily range): BP systolic 122–142; BP diastolic 76–96; PULSE 67–97; TEMP 36.3–38.1; O2SAT 92–97
[2016-10-12] MEDS: LEVETIRACETAM IV 500 MG in DEXTROSE 5% 100ML 100 ML IV SCH ×2 (03:46→16:09)
[2016-10-12 06:47] LABS: BUN/CREATININE RATIO 33.5 (10-20); CALCIUM 7.8 mg/dl (8.5-10.1); CREATININE 1.1 mg/dl (0.60-1.40); HEMATOCRIT 32.8 % (42-52); MAGNESIUM 2.3 mg/dl (1.8-2.4); MEAN CELL VOLUME 80.6 fL (80-100); MEAN CORPUSCULAR HEMOGLOBIN 24.8 pg (25-34); MEAN CORPUSCULAR HGB CONC 30.8 g/dl (32-36); PLATELET COUNT 15 K/uL (130-400); PLT ESTIMATE SIGNIFIC DECREASED; POTASSIUM 3.6 mmol/L (3.5-5.1); RED BLOOD COUNT 4.07 M/uL (4.7-6.1); WHITE BLOOD COUNT 0.86 K/uL (4.8-10.8)
[2016-10-12 06:48] LABS: PHOSPHORUS 1.9 mg/dl (2.5-4.9)
--- NOTE | 2016-10-12 07:00 | DIAGNOSTIC IMAGING REPORT ---
CHEST ONE VIEW PORTABLE CLINICAL HISTORY: SOB SHORTNESS OF BREATH COMPARISON STUDY: 10/07/2016 FINDINGS: There is increased density of the right hilum. There is mild left hilar prominence. There are low lung volumes. There are interstitial opacities the left lung base likely atelectatic. There is no lobar consolidation.[ IMPRESSION: Increased right hilar density and interstitial left basilar opacities likely atelectatic, although an inflammatory process could appear similar. Clinical and radiographic follow-up is recommended. Electronically signed by: Moose Montejo M.D. 10/12/2016 6:59 AM Dictated Date/Time: 10/12/2016 6:57 AM
[2016-10-12] MEDS ORDERED: POTASSIUM PHOS 3 MMOL/1 ML INFUSION IV STA (07:18)
[2016-10-12] MEDS: BOOST PLUS VANILLA PO SCH ×6 (07:30→16:09)
[2016-10-12] MEDS ORDERED: POTASSIUM PHOSPHATE INJ 24 MMOL in SODIUM CHLORIDE 0.9% 500ML 500 ML IV SCH (08:00)
[2016-10-12] MEDS: LACTATED RINGER'S 1000ML 1,000 ML IV SCH ×2 (08:37→15:24)
[2016-10-12] MEDS: METOPROLOL TARTRATE 25 MG TAB PO SCH ×3 (08:41→21:00)
[2016-10-12] MEDS: CYANOCOBALAMIN 500 MCG TAB (VIT B-12) PO SCH (08:42)
[2016-10-12] MEDS: PIPERACILL/TAZOBAC IV 4.5 GM in DEXTROSE 5% 100ML IV SCH ×2 (08:48→15:49)
[2016-10-12] MEDS: LEVOTHYROXINE SODIUM INJ 50 MCG in SYRINGE 0 ML IV SCH (08:49)
--- NOTE | 2016-10-12 09:10 | Progress Note ---
Internal Med Progress Note Date of Service: Oct 12, 2016. Provider Documentation: SUBJECTIVE: The patient was seen and examined in presence of the Remains generally weak and lethargic Condition is worse today Can not eat -may be aspirating OBJECTIVE: Vital Signs-as noted below Exam: General-Minimal distress at rest Remains very weak and lethargic Eyes-Normal ENT-normal Neck-Supple,right sided facial swelling Lungs-Decreased breath sound bilaterally Minimal crackles at the bases Heart-Regular Abdomen-Mildly distended,soft and very tender to palpate Extremities-Trace edema bilaterally Neuro-AA Generally weak and lethargic Confused at times Lab data as noted below. ASSESSMENT & PLAN: Metastatic gastric cancer: S/P radiation therapy No More Continue chemotherapy Poor prognosis-discussed with the Discussed with the Oncologist-Dr Edgardo ALFREDO w/u -negative Pancytopenia deteriorated Palliative care consult -appreciate input Discussed with the family members -continue current management and if deteriorated will go for comfort care only Condition is getting worse Continue current treatment Transfer to medical floor Severe Dehydration With Hypotension and Lethargy: R/O sepsis, On IV Vanco and Zosyn-continue for now Panculture-Negative Appreciate Associate Financial Advisor input Dehydration is worse Increase oral fluid and continue IVF -discussed with the Atrial fibrillation with RVR: Reverted to SR and remaisn in SR No anticoagulation ,hematuria and Low platelet Monitor in Telemetry Appreciate Cardiology input Acute Renal Failure Likely prerenal secondary to decreased oral intake US kidneys -renal cyst otherwise unremarkable IV fluid and monitor May need Nephrology Renal function is improving Pancytopenia: Likely secondary to chemotherapy Neutropenia and Thrombocytopenia Neutropenic Precaution Hold Chemotherapy Received 1 unit of Platelet Condition deteriorated Seizure disorder: Stable Continue home meds Hypothyroidism: Stable Continue levothyroxine DVT Px: SCDs- given hematuria, Thrombocytopenia Potential for clot formation US legs if positive may consider Filter Code Status: Full code Discussed with Poor prognosis Condition is deteriorating Palliative care consult Likely to make DNR and comfort care only from this afternoon/tomorrow Discussed with the and family members Transfer to medical floor Vital Signs: Date Time Temp Pulse Resp B/P Pulse Ox O2 Delivery O2 Flow Rate FiO2 10/12/16 08:04 36.6 97 20 126/76 92 Nasal Cannula 2.0 10/12/16 04:03 Room Air 10/12/16 03:50 36.9 91 28 122/83 97 Room Air 10/12/16 00:05 Room Air 1/24/17 23:37 36.7 82 26 121/83 90 Room Air 10/11/16 20:36 36.5 67 20 105/69 90 Room Air 10/11/16 20:10 Room Air 10/11/16 16:35 36.2 56 16 105/72 95 Room Air 10/11/16 16:00 Room Air 10/11/16 14:20 92 Room Air 10/11/16 14:13 36.6 63 16 89/72 92 Room Air 10/11/16 12:09 36.4 69 20 94/61 92 Room Air 10/11/16 12:00 Room Air Lab Results: Results Past 24 Hours Test 10/12/16 05:50 10/12/16 06:42 Range/Units White Blood Count 0.86 4.8-10.8 K/uL Red Blood Count 4.07 4.7-6.1 M/uL Hemoglobin 10.1 14.0-18.0 g/dL Hematocrit 32.8 42-52 % Mean Corpuscular Volume 80.6 80-100 fL Mean Corpuscular Hemoglobin 24.8 25-34 pg Mean Corpuscular Hemoglobin Concent 30.8 32-36 g/dl RDW Standard Deviation 49.1 36.4-46.3 fL RDW Coefficient of Variation 17.3 11.5-14.5 % Platelet Count 15 130-400 K/uL Platelet Estimate SIGNIFIC DECREASED Sodium Level 150 136-145 mmol/L Potassium Level 3.6 3.5-5.1 mmol/L Chloride Level 116 98-107 mmol/L Carbon Dioxide Level 24 21-32 mmol/L Anion Gap 10.0 3-11 mmol/L Blood Urea Nitrogen 37 7-18 mg/dl Creatinine 1.10 0.60-1.40 mg/dl Est Creatinine Clear Calc Drug Dose 66.5 ml/min Estimated GFR () 82.9 Estimated GFR (Non- 71.6 BUN/Creatinine Ratio 33.5 10-20 Random Glucose 82 70-99 mg/dl Calcium Level 7.8 8.5-10.1 mg/dl Phosphorus Level 1.9 2.5-4.9 mg/dl Magnesium Level 2.3 1.8-2.4 mg/dl Bedside Glucose 76 70-99 mg/dl
[2016-10-12] MEDS: PANTOprazole INJ 40 MG in SYRINGE 0 ML IV SCH (11:09)
[2016-10-12] MEDS: HYDROmorphone INJ 0.5 MG/0.5 ML SYR IV PRN (21:03)
[2016-10-12] MEDS: ONDANSETRON INJ 2 MG/ML 2 ML VIAL IV PRN (21:06)
[2016-10-13] MEDS: LACTATED RINGER'S 1000ML 1,000 ML IV SCH ×4 (00:06→23:50)
[2016-10-13] MEDS: PIPERACILL/TAZOBAC IV 4.5 GM in DEXTROSE 5% 100ML IV SCH ×4 (00:11→23:49)
[2016-10-13] MEDS: LEVETIRACETAM IV 500 MG in DEXTROSE 5% 100ML 100 ML IV SCH ×2 (03:28→14:34)
[2016-10-13 07:15] VITALS: BP 115/65; PULSE 69; TEMP 36.7; O2SAT 97
[2016-10-13 08:10] LABS: HEMATOCRIT 32.7 % (42-52); MEAN CELL VOLUME 80.5 fL (80-100); MEAN CORPUSCULAR HEMOGLOBIN 25.4 pg (25-34); MEAN CORPUSCULAR HGB CONC 31.5 g/dl (32-36); PLATELET COUNT 18 K/uL (130-400); RED BLOOD COUNT 4.06 M/uL (4.7-6.1); WHITE BLOOD COUNT 1.05 K/uL (4.8-10.8)
[2016-10-13 08:18] LABS: BUN/CREATININE RATIO 30.6 (10-20); CALCIUM 7.5 mg/dl (8.5-10.1); CREATININE 0.96 mg/dl (0.60-1.40); POTASSIUM 3.4 mmol/L (3.5-5.1)
[2016-10-13] MEDS: CYANOCOBALAMIN 500 MCG TAB (VIT B-12) PO SCH (08:49)
[2016-10-13] MEDS: LEVOTHYROXINE SODIUM INJ 50 MCG in SYRINGE 0 ML IV SCH (08:50)
[2016-10-13] MEDS: METOPROLOL TARTRATE 25 MG TAB PO SCH ×3 (08:50→20:54)
[2016-10-13] MEDS: PANTOprazole INJ 40 MG in SYRINGE 0 ML IV SCH (08:51)
[2016-10-13] MEDS: BOOST PLUS VANILLA PO SCH ×6 (08:54→16:00)
[2016-10-13 11:41] VITALS: BP 124/84; PULSE 76; TEMP 36.3; O2SAT 97
[2016-10-13] MEDS ORDERED: POTASSIUM CHLORIDE 20 MEQ/15 ML UDC PO ONE (14:45)
[2016-10-13 14:53] VITALS: BP 115/76; PULSE 74; TEMP 36.3; O2SAT 97
[2016-10-13 16:30] VITALS: O2SAT 97
--- NOTE | 2016-10-13 18:44 | Progress Note ---
Internal Med Progress Note Date of Service: Oct 13, 2016. Provider Documentation: SUBJECTIVE: The patient was seen and examined in presence of the Remains generally weak and lethargic Condition is a little better today Conversing reasonable OBJECTIVE: Vital Signs-as noted below Exam: General-Minimal distress at rest Remains very weak and lethargic Eyes-Normal ENT-normal Neck-Supple,right sided facial swelling Lungs-Decreased breath sound bilaterally Minimal crackles at the bases Heart-Regular Abdomen-Mildly distended,soft and very tender to palpate Extremities-Trace edema bilaterally Neuro-AA Generally weak and lethargic Confused at times Lab data as noted below. ASSESSMENT & PLAN: Metastatic gastric cancer: S/P radiation therapy No More Continue chemotherapy Poor prognosis-discussed with the Discussed with the Oncologist-Dr Reynoso DIC w/u -negative Pancytopenia deteriorated Palliative care consult -appreciate input Discussed with the family members-regularly Condition is critical but stable Continue current treatment If deteriorates put him on Comfort care only Severe Dehydration With Hypotension and Lethargy: R/O sepsis, On IV Vanco and Zosyn-continue for now Panculture-Negative Appreciate Evs Tech input Dehydration is worse Increase oral fluid and continue IVF -discussed with the Atrial fibrillation with RVR: Reverted to SR and remaisn in SR No anticoagulation ,hematuria and Low platelet Appreciate Cardiology input Rate in controlled Acute Renal Failure Likely prerenal secondary to decreased oral intake US kidneys -renal cyst otherwise unremarkable IV fluid and monitor May need Nephrology Renal function is improving Pancytopenia: Likely secondary to chemotherapy Neutropenia and Thrombocytopenia Neutropenic Precaution Hold Chemotherapy Received 1 unit of Platelet Counts are improving Seizure disorder: Stable Continue home meds Hypothyroidism: Stable Continue levothyroxine DVT Px: SCDs- given hematuria, Thrombocytopenia Potential for clot formation US legs if positive may consider Filter Code-DNR Discussed with the Family members Palliative care consult If deteriorates -put him on Comfort care only Vital Signs: Date Time Temp Pulse Resp B/P Pulse Ox O2 Delivery O2 Flow Rate FiO2 10/13/16 14:53 36.3 74 18 115/76 97 10/13/16 11:41 36.3 76 18 124/84 97 Nasal Cannula 2.0 10/13/16 08:50 Nasal Cannula 2.0 10/13/16 07:15 36.7 69 18 115/65 97 Nasal Cannula 2.0 10/13/16 00:38 Nasal Cannula 2.0 10/12/16 22:50 36.3 67 20 142/83 95 Nasal Cannula 2.0 Lab Results: Results Past 24 Hours Test 10/12/16 20:01 10/13/16 07:10 10/13/16 07:40 10/13/16 11:31 Range/Units Bedside Glucose 98 75 83 70-99 mg/dl White Blood Count 1.05 4.8-10.8 K/uL Red Blood Count 4.06 4.7-6.1 M/uL Hemoglobin 10.3 14.0-18.0 g/dL Hematocrit 32.7 42-52 % Mean Corpuscular Volume 80.5 80-100 fL Mean Corpuscular Hemoglobin 25.4 25-34 pg Mean Corpuscular Hemoglobin Concent 31.5 32-36 g/dl RDW Standard Deviation 48.5 36.4-46.3 fL RDW Coefficient of Variation 17.2 11.5-14.5 % Platelet Count 18 130-400 K/uL Sodium Level 149 136-145 mmol/L Potassium Level 3.4 3.5-5.1 mmol/L Chloride Level 117 98-107 mmol/L Carbon Dioxide Level 23 21-32 mmol/L Anion Gap 9.0 3-11 mmol/L Blood Urea Nitrogen 29 7-18 mg/dl Creatinine 0.96 0.60-1.40 mg/dl Est Creatinine Clear Calc Drug Dose 80.9 ml/min Estimated GFR () 97.8 Estimated GFR (Non- 84.4 BUN/Creatinine Ratio 30.6 10-20 Random Glucose 78 70-99 mg/dl Calcium Level 7.5 8.5-10.1 mg/dl
[2016-10-14] VITALS (7 sets, daily range): BP systolic 105–118; BP diastolic 58–82; PULSE 61–70; TEMP 35.9–36.8; O2SAT 95–100
[2016-10-14] MEDS: LEVETIRACETAM IV 500 MG in DEXTROSE 5% 100ML 100 ML IV SCH ×2 (04:52→14:27)
[2016-10-14 06:30] LABS: HEMATOCRIT 31.7 % (42-52); MEAN CELL VOLUME 81.9 fL (80-100); MEAN CORPUSCULAR HEMOGLOBIN 25.3 pg (25-34); MEAN CORPUSCULAR HGB CONC 30.9 g/dl (32-36); PLATELET COUNT 27 K/uL (130-400); PLT ESTIMATE SIGNIFIC DECREASED; RED BLOOD COUNT 3.87 M/uL (4.7-6.1); WHITE BLOOD COUNT 1.03 K/uL (4.8-10.8)
[2016-10-14 06:40] LABS: BUN/CREATININE RATIO 26.5 (10-20); CALCIUM 7.2 mg/dl (8.5-10.1); CREATININE 0.95 mg/dl (0.60-1.40); POTASSIUM 3.2 mmol/L (3.5-5.1)
[2016-10-14] MEDS: BOOST PLUS VANILLA PO SCH ×6 (08:00→16:54)
[2016-10-14] MEDS: METOPROLOL TARTRATE 25 MG TAB PO SCH ×3 (08:19→22:13)
[2016-10-14] MEDS: CYANOCOBALAMIN 500 MCG TAB (VIT B-12) PO SCH (08:19)
[2016-10-14] MEDS: LACTATED RINGER'S 1000ML 1,000 ML IV SCH ×3 (08:20→23:30)
[2016-10-14] MEDS: PIPERACILL/TAZOBAC IV 4.5 GM in DEXTROSE 5% 100ML IV SCH ×3 (08:20→23:30)
[2016-10-14] MEDS: LEVOTHYROXINE SODIUM INJ 50 MCG in SYRINGE 0 ML IV SCH (08:21)
[2016-10-14] MEDS: PANTOprazole INJ 40 MG in SYRINGE 0 ML IV SCH (10:58)
[2016-10-14] MEDS ORDERED: POTASSIUM CHLORIDE 20 MEQ TABCR PO ONE (15:15)
--- NOTE | 2016-10-14 18:52 | Progress Note ---
Internal Med Progress Note Date of Service: Oct 14, 2016. Provider Documentation: SUBJECTIVE: on liquid diet patient asking if he can go home denies any pain denies sob or cough afebrile OBJECTIVE: Vital Signs-as noted below Exam: General-alert and awake. Not in distress ENT-normal hearing Neck-no neck masses Lungs-cta b/l no wheezing or crackles Heart-s1 and s2 heard regular rate and rhythm no murmurs Abdomen-soft bowel sounds present non tender no distension Extremities-no erythema Neuro-alert and awake moves extremities Lab data as noted below. ASSESSMENT & PLAN: Metastatic gastric cancer: S/P radiation therapy No More Continuation of chemotherapy DIC w/u -negative Pancytopenia Palliative care consult -appreciate input Poor prognosis palliative care consulted if deteriorates plan for comfort care Severe Dehydration With Hypotension and Lethargy: R/O sepsis, On IV Vanco and Zosyn-continue for now Panculture-Negative Appreciate Turbine Mechanic input Dehydration is worse To Increase oral fluid and continue IVF continue same for now Atrial fibrillation with RVR: Reverted to SR and remains in SR No anticoagulation ,hematuria and Low platelet Seen y cardiology and appreciate input Rate in controlled Acute Renal Failure Likely prerenal secondary to decreased oral intake US kidneys -renal cyst otherwise unremarkable on fluids resolved Pancytopenia: Likely secondary to chemotherapy Neutropenia and Thrombocytopenia Neutropenic Precaution Hold Chemotherapy Received 1 unit of Platelet will f/u labs Seizure disorder: Stable on home meds Hypothyroidism: Stable on levothyroxine DVT Px: SCDs- given hematuria, Thrombocytopenia Code-DNR Discussed with the Family members Palliative care consult If deteriorates -put him on Comfort care only Vital Signs: Date Time Temp Pulse Resp B/P Pulse Ox O2 Delivery O2 Flow Rate FiO2 10/14/16 15:11 35.9 69 24 118/82 97 Room Air 10/14/16 13:47 68 115/75 95 Room Air 10/14/16 11:57 36.8 61 20 106/71 98 Nasal Cannula 1.0 10/14/16 08:45 Room Air 10/14/16 07:37 36.0 64 20 105/58 97 Nasal Cannula 1.0 10/14/16 00:27 36.2 70 18 113/75 100 Nasal Cannula 1.0 10/14/16 00:00 100 Nasal Cannula 1.0 Lab Results: Results Past 24 Hours Test 10/13/16 20:06 10/14/16 05:30 10/14/16 07:29 10/14/16 11:25 Range/Units Bedside Glucose 76 84 79 70-99 mg/dl White Blood Count 1.03 4.8-10.8 K/uL Red Blood Count 3.87 4.7-6.1 M/uL Hemoglobin 9.8 14.0-18.0 g/dL Hematocrit 31.7 42-52 % Mean Corpuscular Volume 81.9 80-100 fL Mean Corpuscular Hemoglobin 25.3 25-34 pg Mean Corpuscular Hemoglobin Concent 30.9 32-36 g/dl RDW Standard Deviation 49.0 36.4-46.3 fL RDW Coefficient of Variation 17.2 11.5-14.5 % Platelet Count 27 130-400 K/uL Nucleated RBC Absolute Count (auto) 0.02 0-0 K/uL Nucleated Red Blood Cells % 1.6 % Platelet Estimate SIGNIFIC DECREASED Sodium Level 149 136-145 mmol/L Potassium Level 3.2 3.5-5.1 mmol/L Chloride Level 116 98-107 mmol/L Carbon Dioxide Level 26 21-32 mmol/L Anion Gap 7.0 3-11 mmol/L Blood Urea Nitrogen 25 7-18 mg/dl Creatinine 0.95 0.60-1.40 mg/dl Est Creatinine Clear Calc Drug Dose 81.7 ml/min Estimated GFR () 99.0 Estimated GFR (Non- 85.4 BUN/Creatinine Ratio 26.5 10-20 Random Glucose 81 70-99 mg/dl Calcium Level 7.2 8.5-10.1 mg/dl Magnesium Level 2.0 1.8-2.4 mg/dl
[2016-10-15 00:30] VITALS: O2SAT 97
[2016-10-15 00:45] VITALS: BP 106/65; PULSE 66; TEMP 36.4; O2SAT 96
[2016-10-15] MEDS: LEVETIRACETAM IV 500 MG in DEXTROSE 5% 100ML 100 ML IV SCH ×2 (03:14→14:10)
[2016-10-15 07:29] VITALS: BP 112/77; PULSE 66; TEMP 36.7; O2SAT 99
[2016-10-15] MEDS: BOOST PLUS VANILLA PO SCH ×6 (07:35→15:49)
[2016-10-15] MEDS: METOPROLOL TARTRATE 25 MG TAB PO SCH ×3 (07:35→19:57)
[2016-10-15] MEDS: CYANOCOBALAMIN 500 MCG TAB (VIT B-12) PO SCH (07:35)
[2016-10-15] MEDS: LACTATED RINGER'S 1000ML 1,000 ML IV SCH (07:35)
[2016-10-15] MEDS: PIPERACILL/TAZOBAC IV 4.5 GM in DEXTROSE 5% 100ML IV SCH ×3 (07:36→23:39)
[2016-10-15 08:00] VITALS: O2SAT 99
[2016-10-15] MEDS: LEVOTHYROXINE SODIUM INJ 50 MCG in SYRINGE 0 ML IV SCH (09:13)
[2016-10-15] MEDS: PANTOprazole INJ 40 MG in SYRINGE 0 ML IV SCH (09:51)
[2016-10-15] MEDS: D5W AND 1/2NSS + 20MEQ KCL 1,000 ML IV SCH ×2 (14:10→23:38)
[2016-10-15 15:02] VITALS: BP 111/69; PULSE 65; TEMP 36.3; O2SAT 99
[2016-10-15] MEDS: LOPERAMIDE HCL 2 MG CAP PO PRN (16:20)
--- NOTE | 2016-10-15 17:28 | Progress Note ---
Internal Med Progress Note Date of Service: Oct 15, 2016. Provider Documentation: SUBJECTIVE: on liquid diet and tolerating ok patient asking if he can go home requests for pt/ot denies any pain has some diarrhea OBJECTIVE: Vital Signs-as noted below Exam: General-alert and awake. Not in distress ENT-normal hearing Neck-no neck masses Lungs-cta b/l no wheezing or crackles Heart-s1 and s2 heard regular rate and rhythm no murmurs Abdomen-soft bowel sounds present non tender no distension Extremities-no erythema Neuro-alert and awake moves extremities Lab data as noted below. ASSESSMENT & PLAN: Metastatic gastric cancer: S/P radiation therapy No More Continuation of chemotherapy DIC w/u -negative Pancytopenia Palliative care consult -appreciate input Poor prognosis palliative care consulted tolerating liquid diet if deteriorates plan for comfort care pt/ot home hospice if stable Severe Dehydration With Hypotension and Lethargy: R/O sepsis, On IV Vanco and Zosyn-continue for now Panculture-Negative Appreciate Electric Switch Repairer input Dehydration is worse To Increase oral fluid and continue IVF f/u labs continue same for now Atrial fibrillation with RVR: Reverted to SR and remains in SR No anticoagulation ,hematuria and Low platelet Seen by cardiology and appreciate input Rate controlled Acute Renal Failure Likely prerenal secondary to decreased oral intake US kidneys -renal cyst otherwise unremarkable on fluids resolved Pancytopenia: Likely secondary to chemotherapy Neutropenia and Thrombocytopenia Neutropenic Precaution Hold Chemotherapy Received 1 unit of Platelet will f/u labs in am Seizure disorder: Stable on home meds Hypothyroidism: Stable on levothyroxine DVT Px: SCDs- given hematuria, Thrombocytopenia Code-DNR Discussed with the Family members Palliative care consult If deteriorates -put him on Comfort care only home hospice? Vital Signs: Date Time Temp Pulse Resp B/P Pulse Ox O2 Delivery O2 Flow Rate FiO2 10/15/16 16:00 Room Air 10/15/16 15:02 36.3 65 21 111/69 99 Room Air 10/15/16 08:00 99 Room Air 10/15/16 07:29 36.7 66 16 112/77 99 Room Air 10/15/16 00:45 36.4 66 18 106/65 96 Room Air 10/15/16 00:30 97 Room Air Lab Results: Results Past 24 Hours Test 10/14/16 20:31 10/15/16 07:47 10/15/16 11:07 10/15/16 11:08 Range/Units Bedside Glucose 72 71 67 81 70-99 mg/dl Test 10/15/16 16:27 Range/Units Bedside Glucose 98 70-99 mg/dl Microbiology Results 10/15/16 C.difficile Toxin B Gene (PCR) - Final, Complete No C. difficile toxin B gene detected
[2016-10-15 23:59] VITALS: BP 127/77; PULSE 72; TEMP 36; O2SAT 99
[2016-10-16] MEDS: LOPERAMIDE HCL 2 MG CAP PO PRN ×3 (01:11→23:32)
[2016-10-16] MEDS: HYDROCODONE/ACETAMOPHEN 5/325MG TAB PO PRN (01:26)
[2016-10-16] MEDS: LEVETIRACETAM IV 500 MG in DEXTROSE 5% 100ML 100 ML IV SCH ×2 (02:35→13:32)
[2016-10-16 07:40] VITALS: BP 124/70; PULSE 74; TEMP 36.5; O2SAT 97
[2016-10-16 08:00] VITALS: O2SAT 97
[2016-10-16] MEDS: PIPERACILL/TAZOBAC IV 4.5 GM in DEXTROSE 5% 100ML IV SCH (08:04)
[2016-10-16] MEDS: METOPROLOL TARTRATE 25 MG TAB PO SCH ×3 (08:04→20:07)
[2016-10-16] MEDS: BOOST PLUS VANILLA PO SCH ×6 (08:04→16:31)
[2016-10-16] MEDS: CYANOCOBALAMIN 500 MCG TAB (VIT B-12) PO SCH (08:05)
[2016-10-16 08:13] LABS: MEAN CORPUSCULAR HGB CONC 30.9 g/dl (32-36); MEAN PLATELET VOLUME 10.6 fL (7.4-10.4); PLATELET COUNT 60 K/uL (130-400)
[2016-10-16 08:38] LABS: BUN/CREATININE RATIO 19.6 (10-20); CALCIUM 6.9 mg/dl (8.5-10.1); CREATININE 0.81 mg/dl (0.60-1.40); MAGNESIUM 1.8 mg/dl (1.8-2.4); POTASSIUM 3.1 mmol/L (3.5-5.1)
[2016-10-16 08:50] LABS: ANISOCYTOSIS PRESENT; DOHLE BODIES 1+; LARGE PLATELETS 2+; POLYCHROMASIA 1+; TOXIC GRANULATION 1+
[2016-10-16 08:51] LABS: BASO ABS # 0.05 K/uL (0-0.2); BASOPHIL % 5.3 % (0-2); COMPLETE YES; EOSINOPHIL % 4.4 %; HEMATOCRIT 27.2 % (42-52); LYMPH ABS # 0.46 K/uL (1.2-3.4); LYMPHOCYTE % 48.2 %; MEAN CELL VOLUME 82.2 fL (80-100); MEAN CORPUSCULAR HEMOGLOBIN 25.4 pg (25-34); NEUTROPHILS % 36.8 %; PLASMA CELL 1.8 %; RED BLOOD COUNT 3.31 M/uL (4.7-6.1); WHITE BLOOD COUNT 0.96 K/uL (4.8-10.8)
[2016-10-16] MEDS: PANTOprazole INJ 40 MG in SYRINGE 0 ML IV SCH (09:11)
[2016-10-16] MEDS: D5W AND 1/2NSS + 20MEQ KCL 1,000 ML IV SCH ×2 (09:11→20:07)
[2016-10-16] MEDS: LEVOTHYROXINE SODIUM INJ 50 MCG in SYRINGE 0 ML IV SCH (09:12)
[2016-10-16] MEDS: POTASSIUM CHLR 10 MEQ / WTR 10 MEQ in PREMIXED WATER 100 ML IV SCH ×2 (09:54→11:04)
[2016-10-16] MEDS ORDERED: POTASSIUM CHLORIDE 20 MEQ TABCR PO ONE (10:00)
[2016-10-16] MEDS ORDERED: PIPERACILL/TAZOBAC IV 4.5 GM in DEXTROSE 5% 100ML IV SCH (16:00)
[2016-10-16] MEDS: PIPERACILL/TAZOBAC IV 3.375 GM in DEXTROSE 5% 100ML 100 ML IV SCH ×2 (16:00→23:32)
--- NOTE | 2016-10-16 17:17 | Progress Note ---
Internal Med Progress Note Date of Service: Oct 16, 2016. Provider Documentation: SUBJECTIVE: on liquid diet and tolerating ok requesting to advance diet requesting fo therapy Asking if he can go home having diarrhea afebrile OBJECTIVE: Vital Signs-as noted below Exam: General-alert and awake. Not in distress ENT-normal hearing Neck-no neck masses Lungs-cta b/l no wheezing or crackles Heart-s1 and s2 heard regular rate and rhythm no murmurs Abdomen-soft bowel sounds present non tender no distension Extremities-no erythema Neuro-alert and awake moves extremities Lab data as noted below. ASSESSMENT & PLAN: Metastatic gastric cancer: S/P radiation therapy No More Continuation of chemotherapy DIC w/u -negative Pancytopenia Palliative care consult -appreciate input Poor prognosis tolerating liquid diet if deteriorates plan for comfort nursing home hospice if stable start pt/ot Severe Dehydration With Hypotension and Lethargy: R/O sepsis, On IV Vanco and Zosyn-continue for now Panculture-Negative Appreciate Grease Worker input Dehydration is worse To Increase oral fluid and continue IVF f/u labs c diff negative continue same for now Atrial fibrillation with RVR: Reverted to SR and remains in SR No anticoagulation ,hematuria and Low platelet Seen by cardiology and appreciate input Rate controlled Acute Renal Failure Likely prerenal secondary to decreased oral intake US kidneys -renal cyst otherwise unremarkable on fluids resolved Pancytopenia: Likely secondary to chemotherapy Neutropenia and Thrombocytopenia Neutropenic Precaution Hold Chemotherapy Received 1 unit of Platelet will f/u labs in am will d/w heme/onco Seizure disorder: Stable on home meds Hypothyroidism: Stable on levothyroxine DVT Px: SCDs- given hematuria, Thrombocytopenia Code-DNR Discussed with the Family members Palliative care consult If deteriorates - Comfort care only home hospice? pt/ot Vital Signs: Date Time Temp Pulse Resp B/P Pulse Ox O2 Delivery O2 Flow Rate FiO2 10/16/16 08:00 97 Room Air 10/16/16 07:40 36.5 74 20 124/70 97 Room Air 10/15/16 23:59 36.0 72 20 127/77 99 Room Air 10/15/16 23:30 Room Air Lab Results: Results Past 24 Hours Test 10/15/16 20:12 10/16/16 06:55 10/16/16 07:50 10/16/16 11:50 Range/Units Bedside Glucose 100 92 87 70-99 mg/dl White Blood Count 0.96 4.8-10.8 K/uL Red Blood Count 3.31 4.7-6.1 M/uL Hemoglobin 8.4 14.0-18.0 g/dL Hematocrit 27.2 42-52 % Mean Corpuscular Volume 82.2 80-100 fL Mean Corpuscular Hemoglobin 25.4 25-34 pg Mean Corpuscular Hemoglobin Concent 30.9 32-36 g/dl Platelet Count 60 130-400 K/uL Mean Platelet Volume 10.6 7.4-10.4 fL RDW Standard Deviation 48.8 36.4-46.3 fL RDW Coefficient of Variation 19.6 11.5-14.5 % Neutrophils % (Manual) 36.8 % Lymphocytes % (Manual) 48.2 % Monocytes % (Manual) 3.5 % Eosinophils % (Manual) 4.4 % Basophils % (Manual) 5.3 0-2 % Neutrophils # (Manual) 0.35 1.4-6.5 K/uL Total Absolute Neutrophils 0.35 1.4-6.5 K/uL Lymphocytes # (Manual) 0.46 1.2-3.4 K/uL Total Absolute Lymphocytes 0.46 1.2-3.4 K/uL Monocytes # (Manual) 0.03 0.11-0.59 K/uL Eosinophils # (Manual) 0.04 0-0.5 K/uL Basophils # (Manual) 0.05 0-0.2 K/uL Plasma Cells % 1.8 % Toxic Granulation 1+ Dohle Bodies 1+ Large Platelets 2+ Polychromasia 1+ Anisocytosis PRESENT Sodium Level 147 136-145 mmol/L Potassium Level 3.1 3.5-5.1 mmol/L Chloride Level 118 98-107 mmol/L Carbon Dioxide Level 19 21-32 mmol/L Anion Gap 10.0 3-11 mmol/L Blood Urea Nitrogen 16 7-18 mg/dl Creatinine 0.81 0.60-1.40 mg/dl Est Creatinine Clear Calc Drug Dose 93.5 ml/min Estimated GFR () 110.4 Estimated GFR (Non- 95.3 BUN/Creatinine Ratio 19.6 10-20 Random Glucose 86 70-99 mg/dl Calcium Level 6.9 8.5-10.1 mg/dl Magnesium Level 1.8 1.8-2.4 mg/dl Test 10/16/16 16:19 Range/Units Bedside Glucose 80 70-99 mg/dl
[2016-10-16 21:05] VITALS: BP 129/86; PULSE 66
[2016-10-17] VITALS (7 sets, daily range): BP systolic 95–116; BP diastolic 60–76; PULSE 65–78; TEMP 36.3–36.5; O2SAT 95–100
[2016-10-17] MEDS: LEVETIRACETAM IV 500 MG in DEXTROSE 5% 100ML 100 ML IV SCH ×2 (03:46→13:33)
[2016-10-17] MEDS: D5W AND 1/2NSS + 20MEQ KCL 1,000 ML IV SCH ×3 (05:05→16:15)
[2016-10-17 06:33] LABS: HEMATOCRIT 29.2 % (42-52); MEAN CELL VOLUME 83.9 fL (80-100); MEAN CORPUSCULAR HEMOGLOBIN 25.6 pg (25-34); MEAN CORPUSCULAR HGB CONC 30.5 g/dl (32-36); PLATELET COUNT 78 K/uL (130-400); RED BLOOD COUNT 3.48 M/uL (4.7-6.1); WHITE BLOOD COUNT 1.07 K/uL (4.8-10.8)
[2016-10-17 06:47] LABS: CALCIUM 6.9 mg/dl (8.5-10.1); CREATININE 0.72 mg/dl (0.60-1.40); MAGNESIUM 1.7 mg/dl (1.8-2.4); POTASSIUM 3.7 mmol/L (3.5-5.1)
[2016-10-17 07:57] LABS: ANISOCYTOSIS PRESENT; BASO % 0.9 %; BASO ABS # 0.01 K/uL (0-0.2); COMPLETE YES; DOHLE BODIES 2+; EOS % 1.9 %; LARGE PLATELETS 1+; LYMPH % 41.1 %; LYMPH ABS # 0.44 K/uL (1.2-3.4); MONO % 7.5 %; NEUT % 48.6 %; TOXIC GRANULATION 1+; VACUOLIZATION 1+
[2016-10-17] MEDS: METOPROLOL TARTRATE 25 MG TAB PO SCH ×3 (08:00→20:45)
[2016-10-17] MEDS: BOOST PLUS VANILLA PO SCH ×6 (08:12→16:12)
[2016-10-17] MEDS: CYANOCOBALAMIN 500 MCG TAB (VIT B-12) PO SCH (08:12)
[2016-10-17] MEDS: PIPERACILL/TAZOBAC IV 3.375 GM in DEXTROSE 5% 100ML 100 ML IV SCH ×2 (08:13→16:12)
[2016-10-17] MEDS: LEVOTHYROXINE SODIUM INJ 50 MCG in SYRINGE 0 ML IV SCH (09:12)
[2016-10-17] MEDS: PANTOprazole INJ 40 MG in SYRINGE 0 ML IV SCH (09:12)
--- NOTE | 2016-10-17 12:57 | Palliative Care Progress Note ---
Palliative Care Progress Note Date of Service Oct 17, 2016. Subjective Pt evaluation today including: conversation w/ patient, conversation w/ family , physical exam, chart review, conversation w/ practice management consultant Pain: 0/10 PO Intake: minimal Voiding: cm catheter in place Patient denies pain or discomfort at this time. Does have abdominal tenderness with palpation. Still on IVF and IV abx Had conversation with patient and , Monique. Goal is for patient to go home with hospice when medically cleared. I went over again in detail what hospice was, their role in the home, and their philosophy of care directed toward comfort only. Patient does not want to be in the hospital any more and is accepting of his diagnosis. However, he would still like to have some therapy if possible from the hospice agency. Review of Systems Constitutional: + weakness ENT: + hearing loss Respiratory: No cough, No shortness of breath Cardiac: + edema, No chest pain Abdomen: No nausea, No pain, No vomiting Male : No problem reported Objective Vital Signs Date Time Temp Pulse Resp B/P Pulse Ox O2 Delivery O2 Flow Rate FiO2 10/17/16 08:55 78 100 10/17/16 08:00 98 Room Air 10/17/16 07:54 36.3 67 18 104/72 98 10/17/16 01:34 36.5 72 18 106/60 96 Room Air 10/16/16 23:59 Room Air 10/16/16 21:05 66 129/86 10/16/16 16:00 Room Air Physical Exam General Appearance: no apparent distress, + pertinent finding (chronically ill appearing) Neck: no JVD, trachea midline Respiratory/Chest: no respiratory distress, no accessory muscle use, + decreased breath sounds, + pertinent finding (room air) Cardiovascular: regular rate, rhythm, + pertinent finding (widespread edema) Abdomen: normal bowel sounds, + tenderness Neurologic/Psychiatric: alert, normal mood/affect, oriented x 3 Laboratory Results Last 24 Hours Test 10/16/16 16:19 10/16/16 20:03 10/17/16 06:00 10/17/16 08:01 Bedside Glucose 80 mg/dl 79 mg/dl 81 mg/dl White Blood Count 1.07 K/uL Red Blood Count 3.48 M/uL Hemoglobin 8.9 g/dL Hematocrit 29.2 % Mean Corpuscular Volume 83.9 fL Mean Corpuscular Hemoglobin 25.6 pg Mean Corpuscular Hemoglobin Concent 30.5 g/dl Platelet Count 78 K/uL Mean Platelet Volume 10.0 fL Neutrophils (%) (Auto) 48.6 % Lymphocytes (%) (Auto) 41.1 % Monocytes (%) (Auto) 7.5 % Eosinophils (%) (Auto) 1.9 % Basophils (%) (Auto) 0.9 % Neutrophils # (Auto) 0.52 K/uL Lymphocytes # (Auto) 0.44 K/uL Monocytes # (Auto) 0.08 K/uL Eosinophils # (Auto) 0.02 K/uL Basophils # (Auto) 0.01 K/uL RDW Standard Deviation 50.2 fL RDW Coefficient of Variation 20.3 % Immature Granulocyte % (Auto) 0.0 % Immature Granulocyte # (Auto) 0.00 K/uL Toxic Granulation 1+ Toxic Vacuolation 1+ Dohle Bodies 2+ Large Platelets 1+ Anisocytosis PRESENT Sodium Level 144 mmol/L Potassium Level 3.7 mmol/L Chloride Level 114 mmol/L Carbon Dioxide Level 19 mmol/L Anion Gap 11.0 mmol/L Blood Urea Nitrogen 12 mg/dl Creatinine 0.72 mg/dl Est Creatinine Clear Calc Drug Dose 106.7 ml/min Estimated GFR () 115.9 Estimated GFR (Non- 100.0 BUN/Creatinine Ratio 16.0 Random Glucose 79 mg/dl Calcium Level 6.9 mg/dl Magnesium Level 1.7 mg/dl Test 10/17/16 11:54 Bedside Glucose 90 mg/dl Assessment and Plan Problem list: Weakness Decreased PO intake Metastatic gastric cancer Dehydration with hypotension Afib with RVR Acute renal failure Pancytopenia Goals of care (Z51.5) Palliative care plan: When medically cleared and done with IV meds, patient and would like him to be at home with hospice. Goal is for comfort. I explained again about hospice and they both agree that the patient does not want to come back to the hospital. The patient is refusing pain medication at this time. I did provide some education on this. I spoke with foster care case manager about finding a hospice agency who would provide some therapy in the home as the patient still has a goal of trying to get a little stronger so he can help care for himself. I will follow on an as needed basis. Please contact me if there are any further palliative care needs. Palliative Performance Scale: 30 % Continued [facility] stay due to: multiple IV medications needed, home environment unsafe for pt Discharge planning: home with Hospice
--- NOTE | 2016-10-17 15:56 | Progress Note ---
Internal Med Progress Note Date of Service: Oct 17, 2016. Provider Documentation: SUBJECTIVE: on pureed diet and tolerating ok requesting to advance diet sat on the chair today afebrile denies any pain want to go home OBJECTIVE: Vital Signs-as noted below Exam: General-alert and awake. Not in distress ENT-normal hearing Neck-no neck masses Lungs-cta b/l no wheezing or crackles Heart-s1 and s2 heard regular rate and rhythm no murmurs Abdomen-soft bowel sounds present non tender no distension Extremities-no erythema Neuro-alert and awake moves extremities Lab data as noted below. ASSESSMENT & PLAN: Metastatic gastric cancer: S/P radiation therapy No More Continuation of chemotherapy DIC w/u -negative Pancytopenia Palliative care consult -appreciate input Poor prognosis tolerating pureed diet and requesting if he can up his diet if deteriorates plan for comfort [facility] hospice if stable Family says patient doesn't want any chemo but not ready for hospice yet Told the family that only way he can go home is with hospice as patient likes to go home They like to have some therapy before he goes home Severe Dehydration With Hypotension and Lethargy: R/O sepsis, On IV Vanco and Zosyn-continue for now Panculture-Negative Appreciate Fitting Room Supervisor input Dehydration is worse To Increase oral fluid and continue IVF f/u labs c diff negative will cut back on fluids and f/u labs Atrial fibrillation with RVR: Reverted to SR and remains in SR No anticoagulation ,hematuria and Low platelet Seen by cardiology and appreciate input Rate controlled Acute Renal Failure Likely prerenal secondary to decreased oral intake US kidneys -renal cyst otherwise unremarkable on fluids resolved Pancytopenia: Likely secondary to chemotherapy Neutropenia and Thrombocytopenia Neutropenic Precaution Hold Chemotherapy Received 1 unit of Platelet will f/u labs in am Seizure disorder: Stable on home meds Hypothyroidism: Stable on levothyroxine DVT Px: SCDs- given hematuria, Thrombocytopenia Code-DNR Discussed with the Family members Palliative care consult If deteriorates - Comfort care only home hospice? pt/ot Vital Signs: Date Time Temp Pulse Resp B/P Pulse Ox O2 Delivery O2 Flow Rate FiO2 10/17/16 14:04 36.5 65 20 95/65 95 Room Air 10/17/16 08:55 78 100 10/17/16 08:00 98 Room Air 10/17/16 07:54 36.3 67 18 104/72 98 10/17/16 01:34 36.5 72 18 106/60 96 Room Air 10/16/16 23:59 Room Air 10/16/16 21:05 66 129/86 10/16/16 16:00 Room Air Lab Results: Results Past 24 Hours Test 10/16/16 16:19 10/16/16 20:03 10/17/16 06:00 10/17/16 08:01 Range/Units Bedside Glucose 80 79 81 70-99 mg/dl White Blood Count 1.07 4.8-10.8 K/uL Red Blood Count 3.48 4.7-6.1 M/uL Hemoglobin 8.9 14.0-18.0 g/dL Hematocrit 29.2 42-52 % Mean Corpuscular Volume 83.9 80-100 fL Mean Corpuscular Hemoglobin 25.6 25-34 pg Mean Corpuscular Hemoglobin Concent 30.5 32-36 g/dl Platelet Count 78 130-400 K/uL Mean Platelet Volume 10.0 7.4-10.4 fL Neutrophils (%) (Auto) 48.6 % Lymphocytes (%) (Auto) 41.1 % Monocytes (%) (Auto) 7.5 % Eosinophils (%) (Auto) 1.9 % Basophils (%) (Auto) 0.9 % Neutrophils # (Auto) 0.52 1.4-6.5 K/uL Lymphocytes # (Auto) 0.44 1.2-3.4 K/uL Monocytes # (Auto) 0.08 0.11-0.59 K/uL Eosinophils # (Auto) 0.02 0-0.5 K/uL Basophils # (Auto) 0.01 0-0.2 K/uL RDW Standard Deviation 50.2 36.4-46.3 fL RDW Coefficient of Variation 20.3 11.5-14.5 % Immature Granulocyte % (Auto) 0.0 % Immature Granulocyte # (Auto) 0.00 0.00-0.02 K/uL Toxic Granulation 1+ Toxic Vacuolation 1+ Dohle Bodies 2+ Large Platelets 1+ Anisocytosis PRESENT Sodium Level 144 136-145 mmol/L Potassium Level 3.7 3.5-5.1 mmol/L Chloride Level 114 98-107 mmol/L Carbon Dioxide Level 19 21-32 mmol/L Anion Gap 11.0 3-11 mmol/L Blood Urea Nitrogen 12 7-18 mg/dl Creatinine 0.72 0.60-1.40 mg/dl Est Creatinine Clear Calc Drug Dose 106.7 ml/min Estimated GFR () 115.9 Estimated GFR (Non- 100.0 BUN/Creatinine Ratio 16.0 10-20 Random Glucose 79 70-99 mg/dl Calcium Level 6.9 8.5-10.1 mg/dl Magnesium Level 1.7 1.8-2.4 mg/dl Test 10/17/16 11:54 Range/Units Bedside Glucose 90 70-99 mg/dl
[2016-10-17] MEDS: LEVETIRACETAM 500 MG TAB PO SCH (20:49)
[2016-10-18 00:19] VITALS: BP 107/70; PULSE 74; TEMP 37; O2SAT 100
[2016-10-18] MEDS: PIPERACILL/TAZOBAC IV 3.375 GM in DEXTROSE 5% 100ML 100 ML IV SCH ×2 (04:32→11:54)
[2016-10-18] MEDS: D5W AND 1/2NSS + 20MEQ KCL 1,000 ML IV SCH ×2 (04:33→18:13)
[2016-10-18] MEDS: LEVOTHYROXINE 150 MCG TAB PO SCH (05:39)
[2016-10-18 07:06] LABS: HEMATOCRIT 27.2 % (42-52); MEAN CELL VOLUME 82.7 fL (80-100); MEAN CORPUSCULAR HEMOGLOBIN 26.1 pg (25-34); MEAN CORPUSCULAR HGB CONC 31.6 g/dl (32-36); MEAN PLATELET VOLUME 9.5 fL (7.4-10.4); PLATELET COUNT 101 K/uL (130-400); RED BLOOD COUNT 3.29 M/uL (4.7-6.1); WHITE BLOOD COUNT 1.68 K/uL (4.8-10.8)
[2016-10-18 07:14] LABS: CALCIUM 6.9 mg/dl (8.5-10.1); CREATININE 0.72 mg/dl (0.60-1.40); MAGNESIUM 1.6 mg/dl (1.8-2.4); POTASSIUM 3.8 mmol/L (3.5-5.1)
[2016-10-18 08:00] VITALS: O2SAT 100
[2016-10-18] MEDS: METOPROLOL TARTRATE 25 MG TAB PO SCH ×3 (08:00→21:39)
[2016-10-18 08:09] LABS: ANISOCYTOSIS PRESENT; DOHLE BODIES 3+; TOXIC GRANULATION 3+
[2016-10-18 08:16] LABS: BASO ABS # 0.02 K/uL (0-0.2); LYMPH ABS # 0.32 K/uL (1.2-3.4); LYMPHOCYTE % 19.2 %; META ABS # 0.02 K/uL (0-0); NEUTROPHILS % 45.1 %; VARIANT LYM ABS # 0.37 K/uL; VARIANT LYMPHOCYTE % 22.1 %
[2016-10-18 08:39] LABS: COMPLETE YES
[2016-10-18] MEDS: BOOST PLUS VANILLA PO SCH ×6 (09:01→17:00)
[2016-10-18] MEDS: LEVETIRACETAM 500 MG TAB PO SCH ×2 (09:01→21:38)
[2016-10-18] MEDS: PANTOprazole SOD 40 MG TAB PO SCH (09:01)
[2016-10-18 09:19] VITALS: BP 95/60; PULSE 77; TEMP 36.3; O2SAT 98
[2016-10-18] MEDS: CYANOCOBALAMIN 500 MCG TAB (VIT B-12) PO SCH (12:20)
[2016-10-18] MEDS ORDERED: MAGNESIUM SULFATE 1GM / D5W 1 GM in PREMIXED IN D5W 100 ML IV STA (12:43)
[2016-10-18] MEDS ORDERED: MAGIC MOUTHWASH PO PRN (13:15)
--- NOTE | 2016-10-18 15:02 | Palliative Care Progress Note ---
Palliative Care Progress Note Date of Service Oct 18, 2016. Subjective Pt evaluation today including: conversation w/ patient, conversation w/ family (, Monique), conversation w/ database consultant Assessment and Plan Problem list: Weakness Decreased PO intake Metastatic gastric cancer Dehydration with hypotension Afib with RVR Acute renal failure Pancytopenia Goals of care (Z51.5) Palliative care plan: Went to room to speak with patient and his at their request. They have chosen [facility], referral to be made by behavioral health case manager who is aware. I answered any questions they had and provided support. Patient was a little more talkative with me today and denied any pain other than in his mouth where he has some sores. He told me he already spoke with the doctor about this, magic swizzle mouthwash being ordered. Palliative Performance Scale: 30 % Continued [facility] stay due to: multiple IV medications needed, home environment unsafe for pt Discharge planning: home with Hospice
[2016-10-18 15:55] VITALS: BP 115/79; PULSE 71; TEMP 36.4; O2SAT 98
[2016-10-18 16:00] VITALS: O2SAT 100
--- NOTE | 2016-10-18 16:48 | Progress Note ---
Internal Med Progress Note Date of Service: Oct 18, 2016. Provider Documentation: SUBJECTIVE: diet advanced to dental soft today patient says he has some pain in his mouth diarrhea is better afebrile want to get some PT before discharged OBJECTIVE: Vital Signs-as noted below Exam: General-alert and awake. Not in distress ENT-normal hearing Neck-no neck masses Lungs-cta b/l no wheezing or crackles Heart-s1 and s2 heard regular rate and rhythm no murmurs Abdomen-soft bowel sounds present non tender no distension Extremities-no erythema edema present Neuro-alert and awake moves extremities Lab data as noted below. ASSESSMENT & PLAN: Metastatic gastric cancer: S/P radiation therapy No More Continuation of chemotherapy DIC w/u -negative Pancytopenia Palliative care consult -appreciate input Poor prognosis tolerating pureed diet and requesting if he can up his diet if deteriorates plan for comfort snf hospice if stable Family says patient doesn't want any chemo but not ready for hospice yet Told the family that only way he can go home is with hospice as patient likes to go home They like to have some therapy before he goes home continue pt/ot Severe Dehydration With Hypotension and Lethargy: R/O sepsis, On IV Vanco and Zosyn-continue for now Panculture-Negative Appreciate Oil Well Logger input Dehydration is worse To Increase oral fluid and continue IVF f/u labs c diff negative will cut back on fluids and f/u labs electrolytes ok Atrial fibrillation with RVR: Reverted to SR and remains in SR No anticoagulation ,hematuria and Low platelet Seen by cardiology and appreciate input Rate controlled Acute Renal Failure Likely prerenal secondary to decreased oral intake US kidneys -renal cyst otherwise unremarkable on fluids resolved Pancytopenia: Likely secondary to chemotherapy Neutropenia and Thrombocytopenia Neutropenic Precaution Hold Chemotherapy Received 1 unit of Platelet improving will f/u labs in am Seizure disorder: Stable on home meds Hypothyroidism: Stable on levothyroxine DVT Px: SCDs- given hematuria, Thrombocytopenia Code-DNR Palliative care consult If deteriorates - Comfort care only Plan for home hospice pt/ot Vital Signs: Date Time Temp Pulse Resp B/P Pulse Ox O2 Delivery O2 Flow Rate FiO2 10/18/16 15:55 36.4 71 20 115/79 98 Room Air 10/18/16 09:19 36.3 77 17 95/60 98 Room Air 10/18/16 08:00 100 Room Air 10/18/16 00:19 37.0 74 18 107/70 100 Room Air 10/18/16 00:00 Room Air 10/17/16 21:33 Room Air 10/17/16 20:30 116/76 Lab Results: Results Past 24 Hours Test 10/17/16 20:13 10/18/16 06:30 10/18/16 07:53 10/18/16 11:30 Range/Units Bedside Glucose 77 76 77 70-99 mg/dl White Blood Count 1.68 4.8-10.8 K/uL Red Blood Count 3.29 4.7-6.1 M/uL Hemoglobin 8.6 14.0-18.0 g/dL Hematocrit 27.2 42-52 % Mean Corpuscular Volume 82.7 80-100 fL Mean Corpuscular Hemoglobin 26.1 25-34 pg Mean Corpuscular Hemoglobin Concent 31.6 32-36 g/dl Platelet Count 101 130-400 K/uL Mean Platelet Volume 9.5 7.4-10.4 fL RDW Standard Deviation 50.3 36.4-46.3 fL RDW Coefficient of Variation 21.4 11.5-14.5 % Nucleated RBC Absolute Count (auto) 0.02 0-0 K/uL Neutrophils % (Manual) 45.1 % Lymphocytes % (Manual) 19.2 % Variant Lymphocytes % (manual) 22.1 % Monocytes % (Manual) 9.6 % Basophils % (Manual) 1.0 0-2 % Metamyelocytes % 1.0 % Blast Cells % 1.0 % Nucleated Red Blood Cells % 1.2 % Neutrophils # (Manual) 0.76 1.4-6.5 K/uL Total Absolute Neutrophils 0.76 1.4-6.5 K/uL Lymphocytes # (Manual) 0.32 1.2-3.4 K/uL Absolute Variant Lymphocytes 0.37 K/uL Total Absolute Lymphocytes 0.69 1.2-3.4 K/uL Monocytes # (Manual) 0.16 0.11-0.59 K/uL Basophils # (Manual) 0.02 0-0.2 K/uL Metamyelocytes # 0.02 0-0 K/uL Blast Cells # 0.02 0-0 K/uL Plasma Cells % 1.0 % Blood Smear Review . Toxic Granulation 3+ Dohle Bodies 3+ Anisocytosis PRESENT Sodium Level 141 136-145 mmol/L Potassium Level 3.8 3.5-5.1 mmol/L Chloride Level 112 98-107 mmol/L Carbon Dioxide Level 19 21-32 mmol/L Anion Gap 10.0 3-11 mmol/L Blood Urea Nitrogen 10 7-18 mg/dl Creatinine 0.72 0.60-1.40 mg/dl Est Creatinine Clear Calc Drug Dose 107.0 ml/min Estimated GFR () 115.9 Estimated GFR (Non- 100.0 BUN/Creatinine Ratio 14.0 10-20 Random Glucose 75 70-99 mg/dl Calcium Level 6.9 8.5-10.1 mg/dl Magnesium Level 1.6 1.8-2.4 mg/dl
[2016-10-18] MEDS: DEXAMETHASONE CONC SOLN 3.75 MG, NYSTATIN SUSP 30 ML, DiphenhydrAMINE HCL SYRUP 300 MG,... PO PRN ×5 (17:38)
[2016-10-18] MEDS: DEXTROSE 50% 50 ML SYR IV PRN (18:03)
[2016-10-18] MEDS ORDERED: D5W AND 1/2NSS + 20MEQ KCL 1,000 ML IV SCH (18:15)
[2016-10-18] MEDS: MAGNESIUM CHLORIDE 64MG DELAYED REL TAB PO SCH (21:37)
[2016-10-18 21:40] VITALS: BP 104/75; PULSE 94
[2016-10-19 00:59] VITALS: BP 116/69; PULSE 76; TEMP 36.7; O2SAT 98
[2016-10-19] MEDS: LEVOTHYROXINE 150 MCG TAB PO SCH (06:43)
[2016-10-19] MEDS: D5W AND 1/2NSS + 20MEQ KCL 1,000 ML IV SCH ×2 (06:54→20:42)
[2016-10-19 08:00] VITALS: O2SAT 98
[2016-10-19] MEDS: BOOST PLUS VANILLA PO SCH ×8 (08:00→20:42)
[2016-10-19 08:07] VITALS: BP 111/73; PULSE 72; TEMP 37.2; O2SAT 97
[2016-10-19] MEDS: MAGNESIUM CHLORIDE 64MG DELAYED REL TAB PO SCH ×2 (08:30→20:55)
[2016-10-19] MEDS: METOPROLOL TARTRATE 25 MG TAB PO SCH ×3 (08:31→20:54)
[2016-10-19] MEDS: PANTOprazole SOD 40 MG TAB PO SCH (08:31)
[2016-10-19] MEDS: CYANOCOBALAMIN 500 MCG TAB (VIT B-12) PO SCH (08:32)
[2016-10-19] MEDS: LEVETIRACETAM 500 MG TAB PO SCH ×2 (08:34→20:53)
[2016-10-19] MEDS: LOPERAMIDE HCL 2 MG CAP PO PRN ×2 (08:35→09:39)
[2016-10-19] MEDS: HYDROCODONE/ACETAMOPHEN 5/325MG TAB PO PRN (09:39)
[2016-10-19 15:44] VITALS: BP 109/69; PULSE 73; TEMP 36.4; O2SAT 99
[2016-10-19 16:00] VITALS: O2SAT 99
[2016-10-19] MEDS ORDERED: HYDROmorphone INJ 1 MG/ML SYR ONE (16:10)
[2016-10-19] MEDS ORDERED: NURSING VERBAL MED ORDER ONE (16:30)
--- NOTE | 2016-10-19 17:00 | Progress Note ---
Internal Med Progress Note Date of Service: Oct 19, 2016. Provider Documentation: SUBJECTIVE: complains of right sided dental pain has watery diarrhea complains of back pain afebrile OBJECTIVE: Vital Signs-as noted below Exam: General-alert and awake. Not in distress ENT-normal hearing Neck-no neck masses Lungs-cta b/l no wheezing or crackles Heart-s1 and s2 heard regular rate and rhythm no murmurs Abdomen-soft bowel sounds present non tender no distension Extremities-no erythema edema present Neuro-alert and awake moves extremities Lab data as noted below. ASSESSMENT & PLAN: Metastatic gastric cancer: S/P radiation therapy No More Continuation of chemotherapy DIC w/u -negative Pancytopenia Palliative care consult -appreciate input Poor prognosis tolerating pureed diet and requesting if he can up his diet if deteriorates plan for [facility] if stable Family says patient doesn't want any chemo but not ready for hospice yet Told the family that only way he can go home is with hospice as patient likes to go home They like to have some therapy before he goes home continue pt/ot plan for home hospice soon Severe Dehydration With Hypotension and Lethargy: R/O sepsis, On IV Vanco and Zosyn-continue for now Panculture-Negative Appreciate Construction Grip input Dehydration is worse To Increase oral fluid and continue IVF f/u labs c diff negative stopped abx will cut back on fluids and f/u labs electrolytes ok Atrial fibrillation with RVR: Reverted to SR and remains in SR No anticoagulation ,hematuria and Low platelet Seen by cardiology and appreciate input Rate controlled Acute Renal Failure Likely prerenal secondary to decreased oral intake US kidneys -renal cyst otherwise unremarkable on fluids resolved Pancytopenia: Likely secondary to chemotherapy Neutropenia and Thrombocytopenia Neutropenic Precaution Hold Chemotherapy Received 1 unit of Platelet improving will f/u labs in am Seizure disorder: Stable on home meds Hypothyroidism: Stable on levothyroxine DVT Px: SCDs- given hematuria, Thrombocytopenia Code-DNR Palliative care consult If deteriorates - Comfort care only Plan for home hospice pt/ot Vital Signs: Date Time Temp Pulse Resp B/P Pulse Ox O2 Delivery O2 Flow Rate FiO2 10/19/16 15:44 36.4 73 16 109/69 99 Room Air 10/19/16 08:07 37.2 72 20 111/73 97 Room Air 10/19/16 08:00 98 Room Air 10/19/16 00:59 36.7 76 16 116/69 98 Room Air 10/19/16 00:20 Room Air 10/18/16 21:40 94 104/75 10/18/16 20:00 Room Air Lab Results: Results Past 24 Hours Test 10/18/16 17:04 10/18/16 18:29 10/18/16 20:09 10/19/16 07:45 Range/Units Bedside Glucose 75 138 86 79 70-99 mg/dl Test 10/19/16 11:07 10/19/16 14:42 10/19/16 16:38 Range/Units Bedside Glucose 74 74 68 70-99 mg/dl
[2016-10-20 00:50] VITALS: BP 123/77; PULSE 84; TEMP 36.6; O2SAT 97
[2016-10-20] MEDS: LOPERAMIDE HCL 2 MG CAP PO PRN (00:53)
[2016-10-20] MEDS: HYDROCODONE/ACETAMOPHEN 5/325MG TAB PO PRN ×2 (06:11→11:43)
[2016-10-20] MEDS: HYDROmorphone INJ 1 MG/ML SYR IV PRN ×2 (06:12→22:03)
[2016-10-20] MEDS: LEVOTHYROXINE 150 MCG TAB PO SCH (06:14)
[2016-10-20 06:43] LABS: HEMATOCRIT 28.7 % (42-52); MEAN CELL VOLUME 84.2 fL (80-100); MEAN CORPUSCULAR HEMOGLOBIN 26.4 pg (25-34); MEAN CORPUSCULAR HGB CONC 31.4 g/dl (32-36); MEAN PLATELET VOLUME 9.7 fL (7.4-10.4); PLATELET COUNT 136 K/uL (130-400); RED BLOOD COUNT 3.41 M/uL (4.7-6.1); WHITE BLOOD COUNT 2.55 K/uL (4.8-10.8)
[2016-10-20 07:02] VITALS: BP 102/65; PULSE 82; TEMP 36.5; O2SAT 97
[2016-10-20 07:17] LABS: BUN/CREATININE RATIO 13.2 (10-20); CALCIUM 6.9 mg/dl (8.5-10.1); CREATININE 0.6 mg/dl (0.60-1.40); MAGNESIUM 1.8 mg/dl (1.8-2.4); POTASSIUM 4.1 mmol/L (3.5-5.1)
[2016-10-20 07:30] LABS: PHOSPHORUS 1.5 mg/dl (2.5-4.9)
[2016-10-20 07:57] LABS: ANISOCYTOSIS PRESENT; BASO % 0.8 %; BASO ABS # 0.02 K/uL (0-0.2); COMPLETE YES; DOHLE BODIES 2+; EOS % 0.8 %; IG% 1.2 %; LYMPH % 35.7 %; LYMPH ABS # 0.91 K/uL (1.2-3.4); MONO % 12.2 %; NEUT % 49.3 %; TOXIC GRANULATION 2+
[2016-10-20] MEDS ORDERED: SODIUM PHOSPHATE 3 MMOL/1 ML INFUSION IV STA (08:06)
[2016-10-20] MEDS: D5W AND 1/2NSS + 20MEQ KCL 1,000 ML IV SCH (08:49)
[2016-10-20] MEDS: LEVETIRACETAM 500 MG TAB PO SCH ×2 (08:50→21:41)
[2016-10-20] MEDS: PANTOprazole SOD 40 MG TAB PO SCH (08:51)
[2016-10-20] MEDS: METOPROLOL TARTRATE 25 MG TAB PO SCH ×3 (08:51→21:40)
[2016-10-20] MEDS: CYANOCOBALAMIN 500 MCG TAB (VIT B-12) PO SCH (08:51)
[2016-10-20] MEDS: MAGNESIUM CHLORIDE 64MG DELAYED REL TAB PO SCH ×2 (08:51→21:41)
[2016-10-20] MEDS: BOOST PLUS VANILLA PO SCH ×6 (08:52→20:34)
[2016-10-20] MEDS ORDERED: SODIUM PHOSPHATE INJ 30 MMOL in SODIUM CHLORIDE 0.9% 500ML 500 ML IV SCH (09:00)
[2016-10-20] MEDS: POT PHOSPHATE MONOBASIC W/ SOD TAB PO SCH ×3 (11:43→21:41)
[2016-10-20] MEDS: DEXTROSE 50% 50 ML SYR IV PRN (11:55)
[2016-10-20] MEDS: DEXAMETHASONE CONC SOLN 3.75 MG, NYSTATIN SUSP 30 ML, DiphenhydrAMINE HCL SYRUP 300 MG,... PO PRN ×5 (11:56)
[2016-10-20] MEDS ORDERED: LIDOCAINE HCL 2% VISC SOLN 20 ML UDC MT PRN (13:30)
[2016-10-20 14:39] VITALS: Ht 165.1 cm; Wt 94.3 kg
[2016-10-20 15:59] VITALS: BP 103/72; PULSE 70; TEMP 36.5; O2SAT 95
[2016-10-20 16:00] VITALS: O2SAT 95
--- NOTE | 2016-10-20 18:57 | Progress Note ---
Internal Med Progress Note Date of Service: Oct 20, 2016. Provider Documentation: SUBJECTIVE: patinet sleeping eating ok as per afebrile want to wait until Monday to be discharged on home hospice as she didn't made home ready yet OBJECTIVE: Vital Signs-as noted below Exam: General-alert and awake. Not in distress ENT-normal hearing Neck-no neck masses Lungs-cta b/l no wheezing or crackles Heart-s1 and s2 heard regular rate and rhythm no murmurs Abdomen-soft bowel sounds present non tender no distension Extremities-no erythema edema present Neuro-alert and awake moves extremities Lab data as noted below. ASSESSMENT & PLAN: Metastatic gastric cancer: S/P radiation therapy No More Continuation of chemotherapy DIC w/u -negative Pancytopenia Palliative care consult -appreciate input Poor prognosis tolerating pureed diet and requesting if he can up his diet if deteriorates plan for comfort [facility] hospice if stable Family says patient doesn't want any chemo but not ready for hospice yet Told the family that only way he can go home is with hospice as patient likes to go home They like to have some therapy before he goes home continue pt/ot plan for home hospice soon wants to wait until Monday as she didn't made her home ready yet Hospital course so far: Severe Dehydration With Hypotension and Lethargy: R/O sepsis, On IV Vanco and Zosyn-continue for now Panculture-Negative Appreciate Powered Bridge Specialist input Dehydration is worse To Increase oral fluid and continue IVF f/u labs c diff negative stopped abx will cut back on fluids and f/u labs electrolytes ok Atrial fibrillation with RVR: Reverted to SR and remains in SR No anticoagulation ,hematuria and Low platelet Seen by cardiology and appreciate input Rate controlled Acute Renal Failure Likely prerenal secondary to decreased oral intake US kidneys -renal cyst otherwise unremarkable on fluids resolved Pancytopenia: Likely secondary to chemotherapy Neutropenia and Thrombocytopenia Neutropenic Precaution Hold Chemotherapy Received 1 unit of Platelet improving will f/u labs in am Seizure disorder: Stable on home meds Hypothyroidism: Stable on levothyroxine DVT Px: SCDs- given hematuria, Thrombocytopenia Code-DNR Palliative care consult If deteriorates - Comfort care only Plan for home hospice soon pt/ot Vital Signs: Date Time Temp Pulse Resp B/P Pulse Ox O2 Delivery O2 Flow Rate FiO2 10/20/16 15:59 36.5 70 16 103/72 95 Room Air 10/20/16 08:00 Room Air 10/20/16 07:02 36.5 82 18 102/65 97 Room Air 10/20/16 00:50 36.6 84 20 123/77 97 Room Air 10/20/16 00:00 Room Air Lab Results: Results Past 24 Hours Test 10/19/16 20:41 10/19/16 21:37 10/20/16 06:20 10/20/16 07:20 Range/Units Bedside Glucose 62 91 73 70-99 mg/dl White Blood Count 2.55 4.8-10.8 K/uL Red Blood Count 3.41 4.7-6.1 M/uL Hemoglobin 9.0 14.0-18.0 g/dL Hematocrit 28.7 42-52 % Mean Corpuscular Volume 84.2 80-100 fL Mean Corpuscular Hemoglobin 26.4 25-34 pg Mean Corpuscular Hemoglobin Concent 31.4 32-36 g/dl Platelet Count 136 130-400 K/uL Mean Platelet Volume 9.7 7.4-10.4 fL Neutrophils (%) (Auto) 49.3 % Lymphocytes (%) (Auto) 35.7 % Monocytes (%) (Auto) 12.2 % Eosinophils (%) (Auto) 0.8 % Basophils (%) (Auto) 0.8 % Neutrophils # (Auto) 1.26 1.4-6.5 K/uL Lymphocytes # (Auto) 0.91 1.2-3.4 K/uL Monocytes # (Auto) 0.31 0.11-0.59 K/uL Eosinophils # (Auto) 0.02 0-0.5 K/uL Basophils # (Auto) 0.02 0-0.2 K/uL RDW Standard Deviation 65.2 36.4-46.3 fL RDW Coefficient of Variation 23.1 11.5-14.5 % Immature Granulocyte % (Auto) 1.2 % Immature Granulocyte # (Auto) 0.03 0.00-0.02 K/uL Toxic Granulation 2+ Dohle Bodies 2+ Anisocytosis PRESENT Sodium Level 139 136-145 mmol/L Potassium Level 4.1 3.5-5.1 mmol/L Chloride Level 110 98-107 mmol/L Carbon Dioxide Level 20 21-32 mmol/L Anion Gap 9.0 3-11 mmol/L Blood Urea Nitrogen 8 7-18 mg/dl Creatinine 0.60 0.60-1.40 mg/dl Est Creatinine Clear Calc Drug Dose 132.9 ml/min Estimated GFR () 124.9 Estimated GFR (Non- 107.8 BUN/Creatinine Ratio 13.2 10-20 Random Glucose 72 70-99 mg/dl Calcium Level 6.9 8.5-10.1 mg/dl Phosphorus Level 1.5 2.5-4.9 mg/dl Magnesium Level 1.8 1.8-2.4 mg/dl Test 10/20/16 11:25 10/20/16 11:27 10/20/16 12:21 10/20/16 16:36 Range/Units Bedside Glucose 64 62 98 70 70-99 mg/dl
[2016-10-20 20:32] VITALS: BP 108/67; PULSE 73
[2016-10-21] MEDS: D5W AND 1/2NSS + 20MEQ KCL 1,000 ML IV SCH ×2 (00:43→12:55)
[2016-10-21 00:48] VITALS: BP 102/67; PULSE 79; TEMP 36.7; O2SAT 97
[2016-10-21] MEDS: HYDROmorphone INJ 1 MG/ML SYR IV PRN ×3 (02:39→14:41)
[2016-10-21] MEDS: LEVOTHYROXINE 150 MCG TAB PO SCH (05:00)
[2016-10-21] MEDS: HYDROCODONE/ACETAMOPHEN 5/325MG TAB PO PRN ×2 (05:12→13:00)
[2016-10-21 07:23] LABS: HEMATOCRIT 27.5 % (42-52); MEAN CELL VOLUME 84.4 fL (80-100); MEAN CORPUSCULAR HEMOGLOBIN 26.7 pg (25-34); MEAN CORPUSCULAR HGB CONC 31.6 g/dl (32-36); MEAN PLATELET VOLUME 9.5 fL (7.4-10.4); PLATELET COUNT 123 K/uL (130-400); RED BLOOD COUNT 3.26 M/uL (4.7-6.1); WHITE BLOOD COUNT 2.88 K/uL (4.8-10.8)
[2016-10-21] MEDS: LEVETIRACETAM 500 MG TAB PO SCH (08:00)
[2016-10-21] MEDS: METOPROLOL TARTRATE 25 MG TAB PO SCH ×2 (08:00→12:55)
[2016-10-21] MEDS: CYANOCOBALAMIN 500 MCG TAB (VIT B-12) PO SCH (08:00)
[2016-10-21] MEDS: MAGNESIUM CHLORIDE 64MG DELAYED REL TAB PO SCH (08:00)
[2016-10-21] MEDS: BOOST PLUS VANILLA PO SCH ×4 (08:00→12:00)
[2016-10-21] MEDS: POT PHOSPHATE MONOBASIC W/ SOD TAB PO SCH ×2 (08:00→12:00)
[2016-10-21] MEDS: PANTOprazole SOD 40 MG TAB PO SCH (08:00)
[2016-10-21 08:11] LABS: BUN/CREATININE RATIO 13.5 (10-20); CREATININE 0.63 mg/dl (0.60-1.40); MAGNESIUM 1.7 mg/dl (1.8-2.4)
[2016-10-21 08:18] VITALS: BP 117/73; PULSE 86; TEMP 36.6; O2SAT 98
[2016-10-21 10:01] LABS: ANISOCYTOSIS PRESENT; BASO % 0.7 %; BASO ABS # 0.02 K/uL (0-0.2); COMPLETE YES; DOHLE BODIES 2+; LYMPH % 29.5 %; LYMPH ABS # 0.85 K/uL (1.2-3.4); MONO % 11.1 %; NEUT % 56.7 %; POLYCHROMASIA 1+; TOXIC GRANULATION 3+
[2016-10-21] MEDS ORDERED: LIDO2SOL19 MT (12:55)
[2016-10-21] MEDS ORDERED: IMD2X PO (12:55)
[2016-10-21] MEDS ORDERED: LORA-741 PO (12:55)
[2016-10-21] MEDS ORDERED: OXYC10SO PO (12:55)
[2016-10-21] MEDS ORDERED: SLWMEC PO (12:55)
[2016-10-21] MEDS ORDERED: NUTR-977 PO (12:55)
[2016-10-21] MEDS ORDERED: POTA8CAP6 PO (12:55)
[2016-10-21] MEDS ORDERED: POTTAB2 PO (12:55)
[2016-10-21] MEDS ORDERED: ONDA8TAB6 PO (12:55)
--- NOTE | 2016-10-21 12:58 | Discharge Instructions ---
Discharge Instructions Admission Reason for Admission: Generalized Weakness Discharge Discharge Diagnosis / Problem: metastatic gastric cancer,dehydration, a.fib with rvr, arf,pancytopenia Discharge Goals Goal(s): Decrease discomfort Activity Recommendations Activity Limitations: as noted below (as tolerated) . Instructions / Follow-Up Instructions / Follow-Up FOLLOWUP WITH FAMILY DOCTOR/ONCOLOGY NEEDED. Current Hospital Diet Patient's current hospital diet: Regular Diet Discharge Diet Recommended Diet: Regular Diet Diet Texture: Dental Soft (bite-sized) (No straws, moist SEND BOTTLED WATER WITH TRAY) Pending Studies Studies pending at discharge: no Medical Emergencies . Who to Call and When: Medical Emergencies: If at any time you feel your situation is an emergency, please call 911 immediately. . Non-Emergent Contact Non-Emergency issues call your: Primary Care Provider . . "Provider Documentation" section prepared by Philippe Sahni. VTE Core Measure Inpt VTE Proph given/why not?: SCD's
[2016-10-21 13:05] VITALS: BP 117/73; PULSE 86; TEMP 36.6; O2SAT 98
--- NOTE | 2016-10-21 19:59 | Progress Note ---
Internal Med Progress Note Date of Service: Oct 21, 2016. Provider Documentation: SUBJECTIVE: patient afebrile mouth pain is better ok to go home OBJECTIVE: Vital Signs-as noted below Exam: General-alert and awake. Not in distress ENT-normal hearing Neck-no neck masses Lungs-cta b/l no wheezing or crackles Heart-s1 and s2 heard regular rate and rhythm no murmurs Abdomen-soft bowel sounds present non tender no distension Extremities-no erythema, edema present Neuro-alert and awake moves extremities Lab data as noted below. ASSESSMENT & PLAN: Metastatic gastric cancer: S/P radiation therapy No More Continuation of chemotherapy DIC w/u -negative Pancytopenia Palliative care consult -appreciate input Poor prognosis tolerating pureed diet and requesting if he can up his diet if deteriorates plan for comfort half-way hospice if stable Family says patient doesn't want any chemo but not ready for hospice yet Told the family that only way he can go home is with hospice as patient likes to go home They like to have some therapy before he goes home continue pt/ot discharged home with hospice today Severe Dehydration With Hypotension and Lethargy: R/O sepsis, On IV Vanco and Zosyn-continue for now Panculture-Negative Appreciate Financial Sales Advisor input Dehydration is worse To Increase oral fluid and continue IVF f/u labs c diff negative stopped abx will cut back on fluids and f/u labs electrolytes ok currently on regular diet Atrial fibrillation with RVR: Reverted to SR and remains in SR No anticoagulation ,hematuria and Low platelet Seen by cardiology and appreciate input Rate controlled Acute Renal Failure Likely prerenal secondary to decreased oral intake US kidneys -renal cyst otherwise unremarkable on fluids resolved Pancytopenia: Likely secondary to chemotherapy Neutropenia and Thrombocytopenia Neutropenic Precaution Hold Chemotherapy Received 1 unit of Platelet improving will f/u labs in am Seizure disorder: Stable on home meds Hypothyroidism: Stable on levothyroxine Discharged home on home hospice Vital Signs: Date Time Temp Pulse Resp B/P Pulse Ox O2 Delivery O2 Flow Rate FiO2 10/21/16 13:05 36.6 86 18 98 Room Air 10/21/16 08:18 36.6 86 18 117/73 98 10/21/16 00:48 36.7 79 20 102/67 97 Room Air 10/21/16 00:00 Room Air 10/20/16 20:32 73 108/67 Lab Results: Results Past 24 Hours Test 10/21/16 07:03 10/21/16 07:05 10/21/16 07:47 Range/Units White Blood Count 2.88 4.8-10.8 K/uL Red Blood Count 3.26 4.7-6.1 M/uL Hemoglobin 8.7 14.0-18.0 g/dL Hematocrit 27.5 42-52 % Mean Corpuscular Volume 84.4 80-100 fL Mean Corpuscular Hemoglobin 26.7 25-34 pg Mean Corpuscular Hemoglobin Concent 31.6 32-36 g/dl Platelet Count 123 130-400 K/uL Mean Platelet Volume 9.5 7.4-10.4 fL Neutrophils (%) (Auto) 56.7 % Lymphocytes (%) (Auto) 29.5 % Monocytes (%) (Auto) 11.1 % Eosinophils (%) (Auto) 1.0 % Basophils (%) (Auto) 0.7 % Neutrophils # (Auto) 1.63 1.4-6.5 K/uL Lymphocytes # (Auto) 0.85 1.2-3.4 K/uL Monocytes # (Auto) 0.32 0.11-0.59 K/uL Eosinophils # (Auto) 0.03 0-0.5 K/uL Basophils # (Auto) 0.02 0-0.2 K/uL RDW Standard Deviation 66.0 36.4-46.3 fL RDW Coefficient of Variation 23.5 11.5-14.5 % Immature Granulocyte % (Auto) 1.0 % Immature Granulocyte # (Auto) 0.03 0.00-0.02 K/uL Toxic Granulation 3+ Dohle Bodies 2+ Polychromasia 1+ Anisocytosis PRESENT Sodium Level 140 136-145 mmol/L Potassium Level 4.0 3.5-5.1 mmol/L Chloride Level 111 98-107 mmol/L Carbon Dioxide Level 22 21-32 mmol/L Anion Gap 7.0 3-11 mmol/L Blood Urea Nitrogen 9 7-18 mg/dl Creatinine 0.63 0.60-1.40 mg/dl Est Creatinine Clear Calc Drug Dose 128.3 ml/min Estimated GFR () 122.4 Estimated GFR (Non- 105.6 BUN/Creatinine Ratio 13.5 10-20 Random Glucose 68 70-99 mg/dl Calcium Level 7.0 8.5-10.1 mg/dl Magnesium Level 1.7 1.8-2.4 mg/dl Bedside Glucose 75 70-99 mg/dl
--- NOTE | 2016-10-21 20:30 | Discharge Summary ---
Discharge Summary Admission Date: Oct 07, 2016 at 20:04 Discharge Date: Oct 21, 2016 Discharge Disposition: Home (HOME HOSPICE) Principal Diagnosis: METASTATIC GASTRIC CANCER DEHYDRATION A FIB WITH RVR PANCYTOPENIA ARF Secondary Diagnoses/Problems: 1) Gastric cancer Status: Chronic (2) Pancytopenia due to chemotherapy Status: Chronic (3) Seizure disorder Status: Chronic Procedures: CXR: Minor basilar atelectasis. No evidence of failure. No evidence of focal pulmonary consolidation RENAL US: 1. Probable 3.8 cm hypoechoic left renal mass 2. Multiple hepatic masses suspicious for metastatic disease 3. Mild fullness of the right renal pelvis, but no evidence of significant hydronephrosis ECHO: n The left ventricle is normal in size. n There is mild concentric left ventricular hypertrophy. n The left ventricular wall motion is normal. n The left ventricle is hyperdynamic. n Ejection Fraction = 65-70%. n The left atrial size is normal. n There is no pericardial effusion. n Incidental finding of hepatic mass on subcostal imaging noted. Consultations: CRITICAL CARE CARDIOLOGY PALLIATIVE CARE Medication Reconciliation New Medications: Lorazepam (Ativan) 0.5 Mg Tab 0.5 MG PO TID PRN for Anxiety/Agitation, #30 TAB 1 Refill Oxycodone Hcl (Roxycodone Oral Soln) 5 Mg/5 Ml Chata 5 MG PO Q4H PRN for Pain for 20 Days Potassium Chloride (Klor-Con Ext Rel) 8 Meq Tabcr 8 MEQ PO DAILY for 30 Days, CAP 1 Refill Enteral Nutrition Formula (Ensure Plus Vanilla) 1 Can Liqd 1 CAN PO TIDM for 30 Days, 2 Refills Loperamide Hcl (Imodium) 2 Mg Cap 2 MG PO TID PRN for Diarrhea, #30 CAP 2 Refills Magnesium Chloride (Mag64) 64 Mg Tabcr 64 MG PO BID for 30 Days, 1 Refill Pot Phosphate Monobasic W/ Sod (Phospha 250 Neutral) 1 Tab Tab 1 TAB PO QID for 30 Days, TAB 1 Refill Continued Medications: Cyanocobalamin (Vitamin B-12) 1,000 Mcg Tab 1000 MCG PO DAILY, TAB Diphenhy/Alum/Mag/Sucralfa (Magic Swizzle - Diphenhy/Alum/Mag/Sucralfa) Susp 15 ML PO QID, #200 ML 1 Refill Divalproex Sodium (Depakote) 500 Mg Tab 500 MG PO TID for 30 Days, #90 TAB 2 Refills Levothyroxine Sodium (Levothyroxine Sodium) 150 Mcg Tab 150 MCG PO DAILY for 90 Days, #90 TAB Lidocaine Hcl (Mouth-Throat) (Lidocaine Viscous) 2 % Chata 10 ML MT Q3 PRN for Pain for 30 Days, BTL 1 Refill (This prescription has been renewed) SWISH AND SPIT Ondansetron Hcl (Zofran) 8 Mg Tab 8 MG PO Q8 PRN for Nausea, #30 TAB 2 Refills (This prescription has been renewed ) Discontinued Medications: Capecitabine (Xeloda) 500 Mg Tab 500 MG PO UD, TAB TAKE 3 TABS BID FOR 14 DAYS IN A ROW THEN OFF 7 DAYS REPEAT EVERY 21 DAYS Fentanyl (Fentanyl) 50 Mcg Tdsy 50 MCG TD [id number] Furosemide (Lasix) 20 Mg Tab 20 MG PO DAILY, TAB Hydrocodone/Acetaminophen 5MG/325MG (Valentine 5MG/325MG) Tab 1 TABLET PO Q6 PRN for Pain, TAB PRN PAIN Promethazine HCl (Phenergan) Unknown Strength Sup 20 ML PO Q4 PRN for Nausea Simvastatin (Zocor) 20 Mg Tab 20 MG PO QPM, TAB Admission Information HPI (per Admitting provider): Patient is a 60 yr old male with PMH of Seizure disorder, Metastatic gastric cancer, Dyslipidemia, Hypothyroidism, Former tobacco use disorder presents with history of being very lethargic, decreased appetite, decreased urine output and has not been himself since last few days. Patient has radiation therapy and is currently undergoing chemotherapy. Patient is a very poor historian and most of the history is obtained from patient's family. Per family patient lost about 100 pounds in last 2 months. Family noticed that his developed some groin redness and swelling and especially since last 2 days his appetite has decreased dramatically and had no urine output since one day. Patient denies any history of cough, SOB, chest pain, fever, nausea, vomiting or noticed any blood in urine/stools. States patient has had intermittent chills last week. Patient was found to have new onset afib, hypotensive with SBP in 60s and SHERI. Physical Exam (per Admitting): General Appearance: + pertinent finding (Chronically ill appearing, Mild distress, Lethargic) Head: normocephalic, atraumatic Eyes: normal inspection, PERRL, EOMI, sclerae normal ENT: normal ENT inspection, hearing grossly normal Neck: supple, trachea midline Respiratory/Chest: chest non-tender, lungs clear, normal breath sounds, no accessory muscle use Cardiovascular: no edema, no murmur, + tachycardia, + irregularly irregular Abdomen/GI: normal bowel sounds, soft, + pertinent finding (mild tenderness diffusely) Extremities/Musculoskelatal: normal inspection, no calf tenderness Neurologic/Psych: alert, oriented x 3, + pertinent finding (Very Letharic, Not very verbal) Physical Exam (per Admitting): General Appearance: + pertinent finding (Chronically ill appearing, Mild distress, Lethargic) Head: normocephalic, atraumatic Eyes: normal inspection, PERRL, EOMI, sclerae normal ENT: normal ENT inspection, hearing grossly normal Neck: supple, trachea midline Respiratory/Chest: chest non-tender, lungs clear, normal breath sounds, no accessory muscle use Cardiovascular: no edema, no murmur, + tachycardia, + irregularly irregular Abdomen/GI: normal bowel sounds, soft, + pertinent finding (mild tenderness diffusely) Extremities/Musculoskelatal: normal inspection, no calf tenderness Neurologic/Psych: alert, oriented x 3, + pertinent finding (Very Letharic, Not very verbal) Hospital Course Metastatic gastric cancer: S/P radiation therapy No More Continuation of chemotherapy DIC w/u -negative Pancytopenia Palliative care consult -appreciate input Poor prognosis tolerating pureed diet and requesting if he can up his diet if deteriorates [facility] if stable Family says patient doesn't want any chemo but not ready for hospice yet Told the family that only way he can go home is with hospice as patient likes to go home They like to have some therapy before he goes home continue pt/ot discharged home with hospice today Severe Dehydration With Hypotension and Lethargy: R/O sepsis, On IV Vanco and Zosyn-continue for now Panculture-Negative Appreciate Charge Histotechnologist input Dehydration is worse To Increase oral fluid and continue IVF f/u labs c diff negative stopped abx will cut back on fluids and f/u labs electrolytes ok currently on regular diet Atrial fibrillation with RVR: Reverted to SR and remains in SR No anticoagulation ,hematuria and Low platelet Seen by cardiology and appreciate input Rate controlled Acute Renal Failure Likely prerenal secondary to decreased oral intake US kidneys -renal cyst otherwise unremarkable on fluids resolved Pancytopenia: Likely secondary to chemotherapy Neutropenia and Thrombocytopenia Neutropenic Precaution Hold Chemotherapy Received 1 unit of Platelet improving will f/u labs in am Seizure disorder: Stable on home meds Hypothyroidism: Stable on levothyroxine Discharged home on home hospice Total time spent on discharge = 35MINUTES This includes examination of the patient, discharge planning, medication reconciliation, and communication with other providers. Discharge Instructions Discharge Instructions Admission Reason for Admission: Generalized Weakness Discharge Discharge Diagnosis / Problem: metastatic gastric cancer,dehydration, a.fib with rvr, arf,pancytopenia Discharge Goals Goal(s): Decrease discomfort Activity Recommendations Activity Limitations: as noted below (as tolerated) . Instructions / Follow-Up Instructions / Follow-Up FOLLOWUP WITH FAMILY DOCTOR/ONCOLOGY NEEDED. Current Hospital Diet Patient's current hospital diet: Regular Diet Discharge Diet Recommended Diet: Regular Diet Diet Texture: Dental Soft (bite-sized) (No straws, moist SEND BOTTLED WATER WITH TRAY) Pending Studies Studies pending at discharge: no Medical Emergencies . Who to Call and When: Medical Emergencies: If at any time you feel your situation is an emergency, please call 911 immediately. . Non-Emergent Contact Non-Emergency issues call your: Primary Care Provider . . "Provider Documentation" section prepared by Philippe Sahni. VTE Core Measure Inpt VTE Proph given/why not?: SCD's
== END 2016-10-21 16:07 | disposition hospice, home (50) | DRG 682 ==
LOC: ENRESERVDT → ENRESERVTM → C.EDB 15:58 → C.MSICU 20:04 → C.2E 10-08 12:09 → C.4E 10-12 10:40
PROVIDERS: ADMIT Internal Medicine; ATTEND Internal Medicine
DX: N17.9 Acute kidney failure, unspecified (principal); D61.811 Other drug-induced pancytopenia; I48.91 Unspecified atrial fibrillation; E72.20 Disorder of urea cycle metabolism, unspecified; C79.9 Secondary malignant neoplasm of unspecified site; N39.0 Urinary tract infection, site not specified; E87.2 Acidosis; C16.9 Malignant neoplasm of stomach, unspecified; R63.4 Abnormal weight loss; G40.909 Epilepsy, unspecified, not intractable, without status epilepticus; Z51.5 Encounter for palliative care; E78.5 Hyperlipidemia, unspecified; E03.9 Hypothyroidism, unspecified; E86.0 Dehydration; F17.229 Nicotine dependence, chewing tobacco, with unspecified nicotine-induced disorders; R31.9 Hematuria, unspecified; I95.9 Hypotension, unspecified; T45.1X5A Adverse effect of antineoplastic and immunosuppressive drugs, initial encounter; Y92.009 Unspecified place in unspecified non-institutional (private) residence as the place of occurrence of the external cause; Z92.3 Personal history of irradiation; T42.6X5A Adverse effect of other antiepileptic and sedative-hypnotic drugs, initial encounter